=== PATIENT | female | born 1940 | race Caucasian/White ===

== ENCOUNTER → 2018-01-29 09:20 | Outpatient (CLI) | payer OTHER, MEDICARE, SELFPAY ==
--- NOTE | 2018-01-29 10:00 | XR_ITS ---
XR knee RT 2V COMPARISON: Right knee 01/31/2016 HISTORY: Follow-up total knee surgery TECHNIQUE: AP lateral view FINDINGS: The femoral prosthesis is in good alignment and apposition to the tibial plateau prosthesis. The circular wire is seen undersurface of the patella. There is no evidence of loosening, the soft tissues are normal. IMPRESSION: Satisfactory appearance total knee prosthesis
== END ==
PROVIDERS: PCP Internal Medicine Adolescent Medicine; Visit Provider Orthopaedic Surgery
DX: Z96.651 Presence of right artificial knee joint (principal)
CPT/HCPCS: 73560

== ENCOUNTER → 2018-12-01 16:23 | Outpatient (CLI) | payer OTHER, MEDICARE, SELFPAY ==
--- NOTE | 2018-12-01 16:37 | XR_ITS ---
XR knee LT 4V HISTORY: Knee pain, ORDERING PHYSICIAN: Selena Carrillo PATIENT AGE: 78 years COMPARISON: None FINDINGS: Weight bearing views are performed There are mild osteoarthritic changes involving the lateral compartment. There is an calcific density along the central aspect of the lateral compartment and could be due to a loose body. This measures approximately 4 x 1 mm. There is minimal valgus angulation of the tibia. Otherwise negative IMPRESSION: Mild osteoarthritis of left knee
== END ==
PROVIDERS: PCP Internal Medicine Adolescent Medicine; Visit Provider Nurse Practitioner Family
DX: M25.562 Pain in left knee (principal); M25.462 Effusion, left knee
CPT/HCPCS: 73564

== ENCOUNTER → 2018-12-22 07:40 | Outpatient (CLI) | payer OTHER, MEDICARE, SELFPAY ==
--- NOTE | 2018-12-22 07:48 | MR_ITS ---
MR knee LT wo con HISTORY: Left knee pain and burning and swelling ITS.REASON: LEFT ANTERIOR KNEE PAIN ORDERING PHYSICIAN: Selena Carrillo PATIENT AGE: 78 years Comparison: 12/01/2018 TECHNIQUE: Standard multiplanar multiecho sequences are performed without contrast. FINDINGS: The cruciate ligaments appear intact. The collateral ligaments, patellar tendon, quadriceps tendon appears intact. There is a small triangular-shaped defect in the posterior horn of the lateral meniscus laterally. Has the patient had prior meniscal surgery? This millimeters partial volume averaging artifact on the edge of the meniscus. A small horizontal meniscal tear however is not excluded. There is a medium sized knee joint effusion mainly in the suprapatellar region with diffuse edema of the soft tissues of the knee. There is decrease in the joint space laterally with mild lateral extrusion of the lateral meniscus. Decreased T1 and increased T2 signal involves the lateral femoral condyle. This is also noted involving the lateral tibial plateau with mild cortical irregularity of the lateral tibial plateau and a small focal area of decreased T1 signal of the lateral tibial plateau which could be due to a small area of osteochondrosis. Mild osteoarthritic changes are present in the patellofemoral joint. IMPRESSION: 1. Osteoarthritis of the lateral compartment and patellofemoral joint with bone marrow edema of the medial femoral condyle and lateral tibial plateau. There is cortical irregularity of the lateral tibial plateau with a small suspected area of osteochondrosis of the lateral tibial plateau. The bone marrow edema of the lateral femoral condyle may be related to the local inflammation from the osteoarthritic change 2. Small defect in the posterior horn of the lateral meniscus raising the suspicion of prior meniscal surgery versus a small meniscal tear. 3. Knee joint effusion with moderate amount of generalized edema of the soft tissues of the knee
== END ==
PROVIDERS: PCP Internal Medicine Adolescent Medicine; Visit Provider Nurse Practitioner Family
DX: M25.562 Pain in left knee (principal)
CPT/HCPCS: 73721

== ENCOUNTER → 2019-08-01 16:09 | Outpatient (CLI) | payer OTHER, MEDICARE, SELFPAY ==
[2019-08-01 17:47] LABS: D-Dimer 1020 ng/mL (0-400)
== END ==
PROVIDERS: Visit Provider Orthopaedic Surgery
DX: M79.89 Other specified soft tissue disorders (principal)
CPT/HCPCS: 36415; 85378

== ENCOUNTER → 2019-08-02 13:08 | Outpatient (CLI) | payer OTHER, MEDICARE, SELFPAY ==
--- NOTE | 2019-08-02 13:14 | CA_ITS ---
APPROVED REPORT Left Lower Extremity Venous Study for DVT. Air Reduction Equipment Operator: LISA Indications Lower Extremity Pain: Lower Extremity Edema: Bilateral Vein Imaging CFV (L): compressive, spontaneous, phasic, augmentation FEM (L): compressive, spontaneous, phasic, augmentation POP (L): compressive, spontaneous, phasic, augmentation PTV (L): Compressible GSV (L): Compressible Peroneals (L):Compressible GAS (L): Compressible Conclusion Color flow duplex demonstrates no evidence of DVT of the left lower extremity Veins. Color flow duplex demonstrates no evidence of SVT of the Small and Great Saphenous Veins. Electronically signed by : Giorgio Hopper MD 08/04/2019 16:21:36
== END ==
PROVIDERS: PCP Internal Medicine Adolescent Medicine; Visit Provider Internal Medicine Adolescent Medicine
DX: M79.662 Pain in left lower leg (principal)
CPT/HCPCS: 93971

== ENCOUNTER 2019-10-12 15:00 | Outpatient (RCR) | payer OTHER, MEDICARE, SELFPAY ==
--- NOTE | 2019-09-05 15:23 | HMH.PTOPWND ---
Rehab Outpt Wound Evaluation Rehab OP Wound Evaluation Start: 09/05/19 14:55 Freq: Status: Active Protocol: Document 09/05/19 15:17 PHOLANCE (Rec: 09/05/19 15:23 PHORNE [id number]) Electronically Signed By Raji Mendoza, PT 09/05/19 15:17 Subjective/History History History Pt is 78 yowf who presents with c/o left LE edema worse x ~ 3 mos. She has received 2 cortisone injection in the left knee recently due to OA, but they have had little to no effect. She reports on pain with walking and none at rest. She had US performed which ruled out DVT of the letf LE. She has PMH of HTN, R TKA, R CAROLANN. Subjective Subjective 0/10 corey dayanna rest, 4/10 at worst (usually with walking). Lymphedema Eval Classification of Lymphedema Secondary Lymphedema Yes Stemmer's sign Stemmer's Sign no Stage of Lymphedema Lymphedema stages Stage II (Pitting edema, increased fibrosis w/ decreased pitting) Skin Changes Dry Skin Yes Redness Yes Discoloration of Skin Yes Pain Scale Pain Scale (0-10) 4 Affected Extremities Areas Affected by Lymphedema/Edema Right Lower Extremity,Left Lower Extremity Manual Lymphatic Drainage Treatment Area MLD Treatment Area Right Lower Extremity,Left Lower Extremity Wound Problems/Impairments Impairments Problems/Impairmments Palpation Tenderness,Impaired Gait Pattern,Impaired Walking, Impaired Recreational Activities,Increased Edema, Lymphedema Present,Subjective C/O Pain,Impaired Self Care/ Self Management Prognosis Rehab Potential Good Clinical Impression Consistent with Diagnosis Yes Short Term Goals Number of Weeks 4 Decreased Palpation Tenderness Yes: to min Decrease Edema Yes Decrease Subjective C/O Pain Yes: 2/10 Patient to Understand Lymphedema Yes Treatment and Exercises Decrease Girth Measurments by (cm) Yes: by 5 cm Dressing Room Attendant Goals Number of Weeks 8 Decreased Palpation Tenderness Yes: to none Increase Ability to Walk Yes Decrease Edema Yes Decre
== END 2019-10-12 15:05 | disposition home or self-care (01) ==
LOC: PT 15:00
PROVIDERS: PCP Internal Medicine Adolescent Medicine; Visit Provider Orthopaedic Surgery
DX: I89.0 Lymphedema, not elsewhere classified (principal); R22.42 Localized swelling, mass and lump, left lower limb
CPT/HCPCS: 97140; 97162; 97760

== ENCOUNTER → 2020-01-30 16:18 | Outpatient (CLI) | payer OTHER, MEDICARE, SELFPAY ==
--- NOTE | 2020-01-30 16:27 | XR_ITS ---
PROCEDURE: XR KNEE LT 4V CLINICAL INDICATION: knee pain Left knee pain COMPARISON: [id number] KNEE-3 VIEWS-RT from 01/09/2016 [id number] KNEE-LIMITED 2 VIEWS-RT from 01/31/2016 KNEELMRT XR knee RT 2V from 01/29/2018 [id number] XR knee LT 4V from 12/01/2018 FINDINGS: Moderate osteoarthritic changes are present involving the lateral compartment. There is valgus angulation of the tibia with osteophyte formation noted along the lateral aspect of the proximal tibia. Mild osteoarthritic changes are present at the patellofemoral joint IMPRESSION: Moderate osteoarthritic changes which have progressed since the previous exam with genu valgum Dictated by: Giorgio Hopper MD 01/30/2020 18:00 Electronically signed by Giorgio Hopper MD in [place] 01/30/2020 18:00
== END ==
PROVIDERS: PCP Internal Medicine Adolescent Medicine; Visit Provider Orthopaedic Surgery
DX: M17.12 Unilateral primary osteoarthritis, left knee (principal)
CPT/HCPCS: 73564

== ENCOUNTER → 2020-03-20 14:10 | Outpatient (CLI) | payer OTHER, MEDICARE, SELFPAY ==
--- NOTE | 2020-03-20 | US_ITS ---
APPROVED REPORT Exam Type: Ankle to Brachial Index Psychic Reader: RT Ismael(R) Indications Non-healing Ulcer: Patient states she has been going to the wound care and lymphedema clinic for a non healing ulcer on the left lower extremity. It has been there for 3 months. Risk Factors Hypertension Pressures/Indices Right Indices Left Indices Brachial 163.00 mmHg Brachial 166.00 mmHg Low Thigh 184.00 mmHg 1.11 Low Thigh 203.00 mmHg 1.22 Calf 190.00 mmHg 1.14 Calf 199.00 mmHg 1.20 Ankle(PT) 201.00 mmHg 1.21 Ankle(PT) 198.00 mmHg 1.19 Ankle(DP) 182.00 mmHg 1.10 Ankle(DP) 190.00 mmHg 1.14 Digit 114.00 mmHg 0.69 Digit 143.00 mmHg 0.86 Findings RT LEI=1.21 LT LEI=1.2 RT TBI=0.7 LT TBI=0.9 Normal waveforms Normal pulses Conclusion Normal appearing resting noninvasive lower extremity arterial study. Electronically signed by : Giorgio Hopper MD 03/20/2020 17:54:28
== END ==
PROVIDERS: PCP Internal Medicine Adolescent Medicine; Visit Provider Orthopaedic Surgery
DX: I89.0 Lymphedema, not elsewhere classified (principal); I73.9 Peripheral vascular disease, unspecified
CPT/HCPCS: 93923

== ENCOUNTER → 2020-03-26 14:38 | Outpatient (CLI) | payer OTHER, MEDICARE, SELFPAY ==
[2020-03-26 14:54] LABS: Basophils % 0.7 % (0.1-2.0); Eosinophils # 0.2 K/mm3 (0.0-0.4); Eosinophils % 2.8 % (0.1-12.0); Hematocrit 35.3 % (37.0-47.0); Hemoglobin 11.1 g/dL (12.2-16.2); Lymphocytes # 0.8 K/mm3 (0.7-4.5); Lymphocytes % 15.7 % (10-50); Mean Corpuscular HGB Conc 31.5 g/dL (31.8-35.4); Mean Corpuscular Hemoglobin 29.8 pg (27.0-31.2); Mean Corpuscular Volume 94.7 fl (81-99); Mean Platelet Volume 8.5 fl (7.4-10.4); Monocytes # 0.3 K/mm3 (0.1-1.0); Neutrophils # 4.1 K/mm3 (1.8-7.8); Neutrophils % 75.7 % (37.0-80.0); Platelet Count 255 K/mm3 (142-424); Red Blood Count 3.73 M/mm3 (4.20-5.40); Red Cell Distribution Width 12.9 % (11.5-17.5); White Blood Count 5.4 K/mm3 (4.8-10.8)
[2020-03-26 15:19] LABS: Erythrocyte Sedimentation Rate 60 mm/hr (0-30)
[2020-03-26 16:13] LABS: Chloride 104 mmol/L (98-107); Potassium 5.1 mmoL/L (3.5-5.1); Sodium 137 mmol/L (136-145)
[2020-03-26 16:16] LABS: Alanine Aminotransferase 9 U/L (12-78); Albumin Level 4.5 g/dl (3.5-5.0); Albumin/Globulin Ratio 1.5 (1.1-1.8); Alkaline Phosphatase 76 U/L (38-126); Anion Gap 14.1 mEq/L (5-15); Aspartate Amino Transferase 20 U/L (14-36); Bilirubin,Total 0.6 mg/dl (0.2-1.3); Blood Urea Nitrogen 48 mg/dl (7-17); Calcium 9.9 mg/dl (8.4-10.2); Carbon Dioxide 24 mmol/L (22.0-30.0); Estimated Glomerular Filt Rate 43 ml/min (>60); GFR (African American) 52 ML/MIN (>60); Glucose 99 mg/dl (74-100); Total Protein,Serum 7.5 g/dl (6.3-8.2)
[2020-03-26 16:22] LABS: C-Reactive Protein 6.7 mg/L (0-4)
== END ==
PROVIDERS: Visit Provider Orthopaedic Surgery
DX: B99.9 Unspecified infectious disease (principal)
CPT/HCPCS: 36415; 80053; 85025; 85651; 86140

== ENCOUNTER → 2020-03-29 11:06 | Outpatient (CLI) | payer OTHER, MEDICARE, SELFPAY ==
--- NOTE | 2020-03-29 11:07 | MR_ITS ---
PROCEDURE: MR LOWER LEG LT WO CON CLINICAL INDICATION: R/O infection Open wound medially above the ankle with pain COMPARISON: No exams were available for comparison TECHNIQUE: Routine multiplanar multi echo sequences are performed without gadolinium enhancement. FINDINGS: There is mild bone marrow edema of the proximal tibia at both the medial and lateral malleolar region and there is also some bone marrow edema of the distal femur laterally. There is a small knee joint effusion. There is extensive soft tissue edema along the medial aspect of the leg cyst 6 involving the medial head of the gastrocnemius muscle 6 6 6 and plantaris muscle proximally with involvement of the flexor digitorum and soleus distally. No abscess or abnormal bone marrow signal intensity is evident distally with no convincing evidence of osteomyelitis. There is extensive subcutaneous edema at the level of the ankle joint and hindfoot medially. There is also edema with a small amount fluid in the soft tissues of the posterior distal tibial region. IMPRESSION: 1. Diffuse subcutaneous edema of the medial aspect of the calf most prominent at the ankle area suggesting cellulitis. No definite abscess or osteomyelitis 2. There is some bone marrow edema at the knee involving the distal femur proximal tibia with an associated knee joint effusion. Etiology of this edema is undetermined Dictated by: Giorgio Hopper MD 03/31/2020 12:53 Electronically signed by Giorgio Hopper MD in [place] 03/31/2020 12:53
== END ==
PROVIDERS: PCP Internal Medicine Adolescent Medicine; Visit Provider Orthopaedic Surgery
DX: M79.89 Other specified soft tissue disorders (principal)
CPT/HCPCS: 73718

== ENCOUNTER → 2020-04-26 17:03 | Outpatient (CLI) | payer OTHER, MEDICARE, SELFPAY | PROVIDERS: Visit Provider Orthopaedic Surgery | DX: L97.321 Non-pressure chronic ulcer of left ankle limited to breakdown of skin (principal) | CPT/HCPCS: 87070; 87077; 87186; 87205 ==

== ENCOUNTER 2020-06-27 16:00 | Outpatient (RCR) | payer MEDICARE, OTHER, SELFPAY ==
--- NOTE | 2020-02-03 09:16 | HMH.PTOPWND ---
Rehab Outpt Wound Evaluation Rehab OP Wound Evaluation Start: 02/03/20 08:38 Freq: Status: Active Protocol: Document 02/03/20 08:55 REJI (Rec: 02/03/20 09:15 PHORSASHA [id number]) Electronically Signed By Raji Mendoza, PT 02/03/20 08:55 Subjective/History History History Pt is 79 yowf who presents with c/o B LE edema, L significantly greater than R, worse x ~1-2 mos. She reports she has had edema for several years overall. She also reports she has a new wound on her anterior medial left ankle that resulted from some poor fitting shoes after her edema increased. She has moderate tenderness to palpation in the L gaitor area . She has PMH of HTN, GERD, R CAROLANN, R TKA, L knee OA. Subjective Subjective Currently no c/o pain, at worst 5/10 in L lower leg. Lymphedema Eval Classification of Lymphedema Secondary Lymphedema Yes: CVI and OA Stemmer's sign Stemmer's Sign no Stage of Lymphedema Lymphedema stages Stage I (Pitting edema, reduces w/ elevation, no fibrosis) Skin Changes Dry Skin Yes Taut, Shiny Skin Yes Redness Yes Wounds Yes Other Changes Yes Pain Scale Pain Scale (0-10) 5 Affected Extremities Areas Affected by Lymphedema/Edema Right Lower Extremity,Left Lower Extremity Manual Lymphatic Drainage Treatment Area MLD Treatment Area Right Lower Extremity,Left Lower Extremity Wound Problems/Impairments Impairments Problems/Impairmments Palpation Tenderness,Impaired Gait Pattern,Impaired Walking, Impaired Recreational Activities,Impaired Work Activities,Lymphedema Present, Wound Care Needs,Subjective C/ O Pain,Impaired Self Care/Self Management Prognosis Rehab Potential Good Clinical Impression Consistent with Diagnosis Yes Short Term Goals Number of Weeks 4 Decreased Palpation Tenderness Yes: to min Decrease Subjective C/O Pain Yes: 3/10 Patient to Understand Lymphedema Yes
--- NOTE | 2020-03-26 15:05 | HMH.RHREAS ---
Rehab Reassessment Rehab OP Re-assessment Start: 02/24/20 15:23 Freq: Status: Active Protocol: Document 03/26/20 15:02 REJI (Rec: 03/26/20 15:04 REJI [id number]) Electronically Signed By Raji Mendoza, PT 03/26/20 15:02 Rehab Re-assessment Subjective Subjective Pt reports increased burning pain in the periwound area after debridement. Objective Objective Notes L hammond wound: L= 1.7 cm, W= 1. 4 cm. Dry, yellow wound base. Assessment Progress Assessment Progressing as Expected Assessment Notes Pt with much less edema noted in left LE, but L medial hammond wound remains very slow to heal. Patient goals met ST,2,3,4 Goals Not Met LT,2,3,4,5,6,7 Revised Goals none Plan Plan Continue per initial POC. Frequency of Therapy 2 x/wk Duration of therapy 8 wks Time and Billing Re-Eval Time 15 Re-Eval Billing Units 1 PHYSICIAN CERTIFICATION: I certify the specified therapy services for Susna Dudley are required, authorized, and reviewed every 30 days.
--- NOTE | 2020-05-10 14:08 | HMH.RHREAS ---
Rehab Reassessment Rehab OP Re-assessment Start: 02/24/20 15:23 Freq: Status: Active Protocol: Document 05/10/20 14:06 REJI (Rec: 05/10/20 14:08 REJI [id number]) Electronically Signed By Raji Mendoza, PT 05/10/20 14:06 Rehab Re-assessment Subjective Subjective Pt with less pain in periwound area now. Objective Objective Notes L LE wound with decreased drainage now. Edema appears less fibrotic with decreased pitting. Assessment Progress Assessment Progressing as Expected Assessment Notes Pt wound healing better now that she is on oral abx. Less pain and improved edema. Patient goals met ST,2,3,4 Goals Not Met LT,2,3,4,5,6,7 Revised Goals none Plan Plan Continue per initial POC. Frequency of Therapy 2 x/wk Duration of therapy 8 wks Time and Billing Re-Eval Time 15 Re-Eval Billing Units 1 PHYSICIAN CERTIFICATION: I certify the specified therapy services for Susan Dudley are required, authorized, and reviewed every 30 days.
--- NOTE | 2020-06-13 16:13 | HMH.RHREAS ---
Rehab Reassessment Rehab OP Re-assessment Start: 02/24/20 15:23 Freq: Status: Active Protocol: Document 06/13/20 16:09 REJI (Rec: 06/13/20 16:12 REJI [id number]) Electronically Signed By Raji Mendoza, PT 06/13/20 16:09 Rehab Re-assessment Subjective Subjective Pt reports much less pain and she feels better overall. Objective Objective Notes L medial ankle wound: L= 0.9 cm, W= 1.0 cm. Assessment Progress Assessment Progressing as Expected Assessment Notes Healthy granulation tissue noted at wound base. Patient goals met ST,2,3,4 Goals Not Met LT,2,3,4,5,6,7 Revised Goals none Plan Plan Continue per initial POC. Frequency of Therapy 2 x/wk Duration of therapy 8 wks Time and Billing Re-Eval Time 15 Re-Eval Billing Units 1 PHYSICIAN CERTIFICATION: I certify the specified therapy services for Susan Dudley are required, authorized, and reviewed every 30 days.
== END 2020-06-27 16:57 | disposition home or self-care (01) ==
LOC: PT 16:00
PROVIDERS: PCP Internal Medicine Adolescent Medicine; Visit Provider Orthopaedic Surgery
DX: M79.605 Pain in left leg; M79.89 Other specified soft tissue disorders
CPT/HCPCS: 97140; 97162; 97164; 97597

== ENCOUNTER → 2020-10-08 15:08 | Outpatient (CLI) | payer MEDICARE, OTHER, SELFPAY ==
--- NOTE | 2020-10-08 15:13 | XR_ITS ---
PROCEDURE: XR KNEE LT 4V CLINICAL INDICATION: LT TKA pre-op Pain, templating COMPARISON: CR [id number] KNEE-LIMITED 2 VIEWS-RT from 01/31/2016 CR KNEELMRT XR knee RT 2V from 01/29/2018 CR [id number] XR knee LT 4V from 12/01/2018 CR XR KNEE LT 4V from 01/30/2020 FINDINGS: There is valgus angulation of the knee with loss of the joint space at the lateral compartment with osteoarthritis at the lateral compartment. Mild osteoarthritic changes are present at the patellofemoral joint. Marker is placed for templating IMPRESSION: Osteoarthritis with genu valgum Dictated by: Giorgio Hopper MD 10/08/2020 16:01 Giorgio Hopper MD in [place] 10/08/2020 16:01
[2020-10-08 16:17] LABS: MANUAL DIFFERENTIAL MANUAL DIFFERENTIAL (MANUAL DIFF)
[2020-10-08 16:51] LABS: Microscopic, Urine URINE MICROSCOPIC (MICROSCOPIC)
[2020-10-08 17:07] LABS: Appearance,Urine CLEAR (Clear); Bilirubin,Urine Negative (Negative); Blood, Urine Negative (Negative); Color,Urine YELLOW (Yellow); Glucose,Urine (UA) Negative (Negative); Ketones,Urine Negative (Negative); Leukocyte Esterase,Urine Negative (Negative); Nitrate,Urine Negative (Negative); Protein,Urine Negative (Negative); Urobilinogen,Urine 0.2 EU/dl (0.2)
[2020-10-08 17:17] LABS: Basophils % 0.6 % (0.1-2.0); Eosinophils # 0.2 K/mm3 (0.0-0.4); Eosinophils % 2.4 % (0.1-12.0); Hematocrit 43.1 % (37.0-47.0); Lymphocytes # 1.1 K/mm3 (0.7-4.5); Lymphocytes % 16.3 % (10-50); Mean Corpuscular HGB Conc 32.6 g/dL (31.8-35.4); Mean Corpuscular Hemoglobin 31.1 pg (27.0-31.2); Mean Corpuscular Volume 95.5 fl (81-99); Mean Platelet Volume 8.3 fl (7.4-10.4); Monocytes # 0.4 K/mm3 (0.1-1.0); Monocytes % 5.8 % (1.7-9.3); Neutrophils # 4.9 K/mm3 (1.8-7.8); Neutrophils % 74.9 % (37.0-80.0); Platelet Count 180 K/mm3 (142-424); Red Blood Count 4.52 M/mm3 (4.20-5.40); Red Cell Distribution Width 13.4 % (11.5-17.5); White Blood Count 6.5 K/mm3 (4.8-10.8)
[2020-10-08 17:26] LABS: Bacteria,Urine 4+ /lpf
[2020-10-08 17:42] LABS: Eosinophils % 3 % (0-3); Lymphocytes % 8 % (10-50); Monocytes % 1 % (2-9); Neutrophils % 86 % (42-76); Platelet Estimate Normal; RBC Morphology Normal; Rouleaux 1+; Total Cells Counted 100
[2020-10-08 17:55] LABS: Activated Partial Thrombo Time 24.8 seconds (23.6-34.0); INR 1.03 (0.9-1.1); Prothrombin Time 11.4 seconds (9.4-11.8)
[2020-10-08 20:30] LABS: Alanine Aminotransferase 10 U/L (12-78); Albumin Level 4.4 g/dl (3.5-5.0); Albumin/Globulin Ratio 1.5 (1.1-1.8); Alkaline Phosphatase 119 U/L (38-126); Anion Gap 11.9 mEq/L (5-15); Aspartate Amino Transferase 22 U/L (14-36); Bilirubin,Total 0.7 mg/dl (0.2-1.3); Blood Urea Nitrogen 24 mg/dl (7-17); Calcium 9.8 mg/dl (8.4-10.2); Carbon Dioxide 28 mmol/L (22.0-30.0); Chloride 104 mmol/L (98-107); Estimated Glomerular Filt Rate 53 ml/min (>60); GFR (African American) 64 ML/MIN (>60); Glucose 98 mg/dl (74-100); Potassium 4.9 mmoL/L (3.5-5.1); Sodium 139 mmol/L (136-145); Total Protein,Serum 7.4 g/dl (6.3-8.2)
== END ==
PROVIDERS: PCP Internal Medicine Adolescent Medicine; Visit Provider Orthopaedic Surgery
DX: Z01.818 Encounter for other preprocedural examination; M17.12 Unilateral primary osteoarthritis, left knee; Z51.81 Encounter for therapeutic drug level monitoring; R82.90 Unspecified abnormal findings in urine
CPT/HCPCS: 36415; 73564; 80053; 81001; 85007; 85014; 85018; 85048; 85049; 85610; 85730; 86850; 87081; 87086; 87088; 87186

== ENCOUNTER → 2020-10-15 15:09 | Outpatient (CLI) | payer MEDICARE, OTHER, SELFPAY ==
[2020-10-15 17:38] LABS: Coronavirus 19 IgG Antibody Negative (Negative); Coronavirus 19 IgM Antibody Negative (Negative)
== END ==
PROVIDERS: Visit Provider Orthopaedic Surgery
DX: Z01.818 Encounter for other preprocedural examination; M17.12 Unilateral primary osteoarthritis, left knee
CPT/HCPCS: 36415; 86328; 86850

== ENCOUNTER 2020-10-16 07:18 | Observation (INO) | payer MEDICARE, OTHER, SELFPAY ==
[2020-10-16] VITALS (33 sets, daily range): BP systolic 108–196; BP diastolic 40–93; PULSE 67–109; RESP 12–20; TEMP 36.4–43; O2SAT 94–100; BMI 20.3
--- NOTE | 2020-10-16 08:36 | P.PN_ITS ---
[facility] Anesthesia Checklist - Patient Identification Patient Identification: Arm Band, Verbal (Name & ) - Structural Data Admitted From: Home Planned Operative Procedure/s: left tka Consent for Planned Operative Procedure(s) Verified: Yes Verified Documents: History and Physical - NPO Status Verified Time NPO: 00:00 - Chart Verification Results Verified: CBC, BMP - Additional verifications Patient : No Anesthesia Reactions: No Hx Blood Transfusions: Yes Blood Transfusion Reaction: No Cephalosporin Allergy: No Previous Colonoscopy: No - Cardiovascular Assessment Heart Sounds: S1 & S2 Pulse Strength: Baseline Pulse Rhythm: Regular Peripheral Edema: No - Airway Assessment C-Spine Mobility Assessed: Yes TMJ Mobility Assessed: Yes Dentition: Good Dentition - Neurological Assessment Level of Consciousness: Awake, Alert, Appropriate Hx Seizures: No Numbness or tingling in extremities: No - Anesthesia Plan Anesthesia Risk discussed: Yes Anesthesia Plan: Verified ASA Class: II Anesthesia Type: General [facility] History I have reviewed the patient's past medical history: Yes Medical History: Reports:: Gastroesophageal Reflux Disease(GERD), Hypertension, Ulcer Denies:: Cancer, Diabetes Mellitus Type 1, Diabetes Mellitus Type 2, Internal Pacemaker, Lung Disease, MRSA, Seizures *Have you ever received a pneumonia vaccine?: No *Have you received a flu vaccine this season?: No Other Medical History: Reports: Anemia, Arthritis. Denies: Blood Transfusion Reaction Anesthesia experience/problems:: none Laterality Cases: Right: Arthroscopy Knee, Total Hip Replacement Other Surgeries: Yes: Colostomy, EGD, Other. No: Pacemaker - *Social History Last grade of school completed: High school graduate Smoking Status: Never smoker Alcohol Intake: never Substance Use Type: other *Occupational Status:: retired Housing: house Household Members: family *Travel in the last 8 weeks: None Family Hx:: Cancer
[2020-10-16 12:13] LABS: Microscopic,Cath URINE MICROSCOPIC (MICROSCOPIC)
[2020-10-16 12:17] LABS: Appearance,Urine/Cath CLEAR (Clear); Bilirubin,Cath Negative (Negative); Blood, Urine/Cath TRACE-L (Negative); Color,Urine/Cath YELLOW (Yellow); Glucose,Urine/Cath (UA) Negative (Negative); Ketones,Urine/Cath Negative (Negative); Leukocyte Esterase,Cath TRACE (Negative); Nitrate,Cath POSITIVE (Negative); Protein,Urine/Cath Negative (Negative); Urobilinogen,Cath 0.2 EU/dl (0.2)
--- NOTE | 2020-10-16 13:32 | HMH.ANESI ---
[facility] Anesthesia Record Part I Intake, IV Amount: 1,000 Estimated blood loss (mL): 50 Urine output (mL): 200 Blood Products used (#): none Blood Pressure: 147/74 SaO2: 95 Pulse Rate: 108 Respiratory Rate: 20 Temperature: 98.7 F Patient is:: Drowsy, Stable Stable to PACU at:: 13:28
--- NOTE | 2020-10-16 13:34 | XR_ITS ---
PROCEDURE: XR KNEE LT 2V CLINICAL INDICATION: s/p L TKA Follow-up knee replacement COMPARISON: CR KNEELMRT XR knee RT 2V from 01/29/2018 CR [id number] XR knee LT 4V from 12/01/2018 CR XR KNEE LT 4V from 01/30/2020 CR XR KNEE LT 4V from 10/08/2020 FINDINGS: Status post total knee replacement with good alignment and no evidence of orthopedic complication. Postsurgical gas and drain noted. IMPRESSION: Good alignment status post total knee replacement Dictated by: Giorgio Hopper MD 10/16/2020 15:06 Giorgio Hopper MD in [place] 10/16/2020 15:06
--- NOTE | 2020-10-16 13:43 | HMH.ORTHHP ---
*Admission Date: 10/16/20 *Reason for consult:: L knee DJD s/p TKA *History of present illness: 80yo F with L knee DJD that has failed conservative therapy. I have been following her as an outpatient for nearly 2 years, and the pain in the knee has progressively worsened despite 3 intra-articular corticosteroid injections and 1 synvisc injection from me. She is unable to take NSAIDs due to h/o NSAID-induced gastric ulcer. She has tried bracing and activity modification, in addition to oral analgesics but the pain has progressed to the point it is inhibiting her ability to perform ADLs and is adversely affecting her quality of life. In addition to this her valgus deformity has progressively worsened over the past year. No injuries reported. Surgery was planned for earlier in the year but delayed due to the presence of LLE edema and a non-healing ulcer over the medial L ankle. This healed after treatment at the wound care clinic at . Pre-operatively she was negative for covid-19 antibodies and her labs were within normal limits. However, she did have a UTI (E. Coli); her PCP called in macrobid; the patient isn't sure if she took it. PMH = HTN, GERD, gastric ulcer PSH = R TKA 2015; B/L CAROLANN Allg = statins, NSAIDs Meds = carvedilol, vitamin D3, furosemide, norco 7.5, metaxolone SocHx = no alcohol, drug or tobacco use [facility] History I have reviewed the patient's past medical history: Yes Medical History: Reports:: Gastroesophageal Reflux Disease(GERD), Hypertension, Ulcer Denies:: Cancer, Diabetes Mellitus Type 1, Diabetes Mellitus Type 2, Internal Pacemaker, Lung Disease, MRSA, Seizures *Have you ever received a pneumonia vaccine?: No *Have you received a flu vaccine this season?: No Other Medical History: Reports: Anemia, Arthritis. Denies: Blood Transfusion Reaction Anesthesia experience/problems:: none Laterality Cases: Right: Arthroscopy Knee, Total Hip Replacement Other Surgeries: Yes: Colostomy, EGD, Other. No: Pacemaker - *Social History Last grade of school completed: High school graduate Smoking Status: Never smoker Alcohol Intake: never Substance Use Type: other *Occupational Status:: retired Housing: house Household Members: family *Travel in the last 8 weeks: None Family Hx:: Cancer Review of Systems - Review of Systems Review of systems:: pertinent systems reviewed and negative unless documented below Meds Home Medications Medication Instructions Recorded Confirmed Type cholecalciferol (vitamin D3) 75 1,000 unit PO ONCE tab 01/29/18 09/13/20 History mcg (3,000 unit) tablet carvedilol 6.25 mg tablet 6.25 mg PO BID 03/26/20 09/13/20 History hydrocodone 7.5 mg-acetaminophen 1 tab PO TID PRN 10/08/20 10/08/20 History 325 mg tablet Allergies Allergy/AdvReac Type Severity Reaction Status Date / Time Ecnuelz-Fro-Avq Reductase Allergy Severe S-SWELLS-OR Verified 10/08/20 14:20 Inhibitor AL/THROAT NSAIDS (Non-Steroidal Allergy Unknown ULCERS Verified 10/08/20 14:20 Anti-Inflamma Exam Vital signs and Labs for Last 24 Hours: Temp Pulse Resp BP Pulse Ox 98.7 F 108 H 20 147/74 H 100 10/16/20 13:42 10/16/20 13:42 10/16/20 13:42 10/16/20 13:42 10/16/20 08:00 Laboratory Results - last 24 hr 10/16/20 09:31: Urine Color Yellow, Urine Appearance Clear, Urine pH 6.0, Ur Specific Finley 1.020, Urine Protein Negative, Urine Glucose (UA) Negative, Urine Ketones Negative, Urine Blood Trace-l, Urine Nitrate Positive, Urine Bilirubin Negative, Urine Urobilinogen 0.2, Ur Leukocyte Esterase Trace, Urine RBC 3-5, Urine WBC 3-5, Ur Squamous Epith Cells 3-5 I & O for Last 24 hours: Intake & Output 10/14/20 10/15/20 10/16/20 10/17/20 11:59 11:59 11:59 11:59 Intake Total 1000 / 1000 Balance 1000 / 1000 Weight 115 lb - Constitutional no acute distress - *Routine HEENT Exam Head: Present: normocephalic Eye: Present: EOMI ENT: Present: mucous membranes moist - *Routine
--- NOTE | 2020-10-16 14:20 | HMH.OPNOTE ---
Date of procedure: 10/16/20 Pre-op Diagnosis:: L knee degenerative joint disease; valgus deformity Post-op Diagnosis:: L knee degenerative joint disease; valgus deformity Procedure performed:: L total knee arthroplasty (TKA) Surgeon:: Marielle Mckeon MD Clinical Fellow(s):: JOSSE Jiménez POLICY ANALYST:: Hayder Ma Anesthesia: GETA, regional Estimated blood loss (mL): 100 Clinical Note:: 80yo F with L knee DJD that has failed conservative therapy. I have been following her as an outpatient for nearly 2 years, and the pain in the knee has progressively worsened despite 3 intra-articular corticosteroid injections and 1 synvisc injection from [place]. She is unable to take NSAIDs due to h/o NSAID-induced gastric ulcer. She has tried bracing and activity modification, in addition to oral analgesics but the pain has progressed to the point it is inhibiting her ability to perform ADLs and is adversely affecting her quality of life. In addition to this her valgus deformity has progressively worsened over the past year. No injuries reported. Surgery was planned for earlier in the year but delayed due to the presence of LLE edema and a non-healing ulcer over the medial L ankle. This healed after treatment at the wound care clinic at . Pre-operatively she was negative for covid-19 antibodies and her labs were within normal limits. However, she did have a UTI (E. Coli); her PCP called in macrobid; the patient isn't sure if she took it. I?ve discussed surgical options with the patient and have recommended total knee arthroplasty. We discussed at length the surgical technique and expected perioperative course, including length of hospitalization, need for postoperative physical therapy, use of anticoagulants, expected level of pain, and total length of recovery. I also explained the potential risks of surgery, including bleeding, infection, fracture, wound healing complications, need for revision surgery, continued pain post-operatively, DVT/PE, and risks of both general and regional anesthesia, including nerve damage, heart attack, stroke and even . I also discussed her unique risks of peroneal nerve palsy after correction of a valgus deformity, with potential foot drop. The patient vocalized understanding of these risks and has agreed to proceed with surgery; informed consent was obtained. She was cleared for surgery by her primary care provider. Operative findings:: IMPLANTS: vendor: [employer] femur: 5 L journey II BCS tibia: 3 L legion revision baseplate w/JII lock detail, [id number] PF stem patella: 32x9mm polyethylene: 15mm L BCS poly for JII, constrained cement: palacos (with gentamicin) Operative note:: The patient was identified in pre-operative holding and the L leg signed by myself with marking pen. Consent was verified with the patient and all questions were answered. Pre-operative labs were confirmed to be within acceptable limits. MRSA nasal swab was negative. She was then seen by anesthesia and the decision was made to perform general anesthesia with an adductor canal block in PACU if needed. The patient was then taken to the OR and placed supine on the operative table. 1g cefazolin was infused intravenously and general anesthesia induced. Once the patient was asleep, a nonsterile tourniquet was placed on the upper L thigh. The L leg was then prepped and draped in the usual sterile fashion for total knee arthroplasty. Timeout was performed, identifying the correct patient, correct procedure, and correct site. The procedure was begun by performing an exam under anesthesia. ROM of the L knee was 0-120 degrees without a flexion contracture. The patient had a significant clinical valgus deformity, which did open up medially quite a bit but did not feel grossly unstable. The valgus was measured around 31 degrees on standing pre-op short leg films. Next the L leg was exsanguinated with an Esmarch and the tourniquet inflated to 250 mmHg. A longitudinal inci
--- NOTE | 2020-10-16 14:33 | SUR.PHASEI ---
Much of the time the patient spent in PACU was devoted to getting the wound vac to seal correctly without a leak. The Whit Alvarado worked diligently to first find the leak she could detect using a stethoscope and then to repair the leak. The patient received a block to the left leg in PACU at 1424 by Kahlil Ma CRNA, using 15-20ml pain med with an ultrasound. The patient tolerated the block well.
--- NOTE | 2020-10-16 14:56 | SW/DCPLANNER ---
RECEIVED REFERRAL FOR DISCHARGE PLANNING FOR THIS PATIENT: MS MCDERMOTT WAS ADMITTED FOR A TOTAL LEFT KNEE R/T DJD... MS MCDERMOTT RESIDES AT HOME WITH HER 2 DAUGHTERS AND THE PLAN IS FOR HER TO STAY TONIGHT, HAVE A PT EVAL IN THE AM AND DEPENDING ON WHAT THERAPY SAYS MAY DISCHARGE TO HOME WITH HOME HEALTH AND THE HELP FROM HER DAUGHTERS... WEIGHT BEARING IS UNDECIDED AT THIS TIME... SPOKE WITH DAUGHTER AND SHE IS IN AGREEMENT OF THE PLAN...
--- NOTE | 2020-10-16 17:06 | HMH.ACPN2 ---
Internal Medicine - PN: Subj *Date: 10/16/20 *Time: 21:03 Interval history: Ms. Dudley is an 80-year-old female admitted for orthopedics for total knee replacement. Our service was consulted by Dr. Mckeon for medical management of her chronic conditions. History of presentation as follows Per orthopedic note and review with patient: 80yo F with L knee DJD that has failed conservative therapy. Extensive follow-up and treatment with injections, oral agents, and conservative management. Decision made to pursue knee replacement due to persistent pain and deformity. Surgery performed this afternoon without incident. Patient tolerated procedure well, received nerve block after procedure. PMH = HTN, GERD, gastric ulcer PSH = R TKA 2015; B/L CAROLANN Allg = statins, NSAIDs Meds = carvedilol, vitamin D3, furosemide, norco 7.5, metaxolone SocHx = no alcohol, drug or tobacco use On interview, patient states she is feeling pretty good. Denies significant pain in her leg. Has postsurgical wrap and ice bath in place. Currently eating dinner without any nausea or upset stomach. Denies shortness of breath or chest pain. Alert and oriented on interview. Daughter at bedside with her. Of note, has positive UA concerning for UTI, but denies significant symptoms at this time. Blood pressure improved on interview, 140s over 70s. Stable on room air. Exam Vital signs and Labs for Last 24 Hours: Temp Pulse Resp BP Pulse Ox 97.9 F 86 13 129/68 95 10/16/20 15:20 10/16/20 15:20 10/16/20 15:20 10/16/20 15:20 10/16/20 15:20 Laboratory Results - last 24 hr 10/16/20 09:31: Urine Color Yellow, Urine Appearance Clear, Urine pH 6.0, Ur Specific [place] 1.020, Urine Protein Negative, Urine Glucose (UA) Negative, Urine Ketones Negative, Urine Blood Trace-l, Urine Nitrate Positive, Urine Bilirubin Negative, Urine Urobilinogen 0.2, Ur Leukocyte Esterase Trace, Urine RBC 3-5, Urine WBC 3-5, Ur Squamous Epith Cells 3-5 I & O for Last 24 hours: Intake & Output 10/13/20 10/14/20 10/15/20 10/16/20 23:59 23:59 23:59 23:59 Intake Total 1000 / 1000 Output Total 300 / 300 Balance 700 / 700 Weight 52.163 kg - Constitutional no acute distress - *Routine HEENT Exam Head: Present: normocephalic Eye: Present: EOMI, PERRL ENT: Present: mucous membranes moist - *Routine Neck Exam Present: supple. Absent: lymphadenopathy - *Routine Respiratory Exam Present: CTA bilaterally - *Routine Cardiovascular Exam Present: RRR - *Routine Abdominal Exam Present: soft, normoactive bowel sounds. Absent: tenderness - *Routine Extremities Exam Absent: cyanosis, clubbing Comments: Left leg in Ian bandage from heel to thigh. Defer to orthopedics exam per their note - *Routine Skin Exam Present: warm. Absent: rash - *Routine Neurological Exam Present: alert, oriented X3 Neurovascularly intact in left foot distal to surgical site. Able to wiggle toes, sensation intact Assessment and Plan (1) Degenerative arthritis of left knee Status: Acute Category: Medical Code(s): M17.12 - Unilateral primary osteoarthritis, left knee (2) HTN (hypertension) Status: Acute Category: Medical Code(s): I10 - Essential (primary) hypertension (3) GERD (gastroesophageal reflux disease) Status: Acute Category: Medical Code(s): K21.9 - Gastro-esophageal reflux disease without esophagitis (4) UTI (urinary tract infection) Status: Acute Category: Medical Code(s): N39.0 - Urinary tract infection, site not specified (5) Acute pain Status: Acute Category: Medical Code(s): R52 - Pain, unspecified Secondary to surgery. On appropriate opiate regimen. Will monitor for constipation. Bowel regimen initiated. - Assessment and plan all Dx Assessment and Plan for all problems:: 80-year-old female with history of hypertension, degenerative joint disease of left knee, status post surgical knee replacement.
--- NOTE | 2020-10-16 19:17 | P.PN_ITS ---
[facility] Anesthesia Record Part II Discharge Time: 15:25 Destination: Medical Surgical Department PACU nurse assessment reviewed?: Yes Patient Condition:: Good Anesthesia Complications:: None Swallowing reflex intact?: Yes Cyanosis?: No Blood Pressure: 129/40 Pulse Rate: 84 Temperature: 97.7 F Mental Status: Alert & Oriented Pain level:: 0 Nausea and/or vomitting:: None Intake, IV Amount: 50
--- NOTE | 2020-10-16 20:34 | PC.NURSE ---
pt has done well since arrival to floor. no pain voiced. vitals have been wnl. polar pack in place. wound vac in place w/o issue. will cont. to monitor.
[2020-10-17] VITALS (7 sets, daily range): BP systolic 107–167; BP diastolic 56–93; PULSE 76–103; RESP 16–20; TEMP 36.4–37.1; O2SAT 92–99; BMI 23.2
--- NOTE | 2020-10-17 05:04 | PC.NURSE ---
pt A&OX4 lungs CTA. surgical dressing in place c/d/i. wound vac, polar pack in place. f/c draining yellow urine. pt medicated for pain x1 this shift per Mar. daughter @ bedside
[2020-10-17 06:22] LABS: Basophils % 0.2 % (0.1-2.0); Eosinophils % 0.5 % (0.1-12.0); Hematocrit 31.8 % (37.0-47.0); Hemoglobin 10.5 g/dL (12.2-16.2); Lymphocytes % 14.5 % (10-50); Mean Corpuscular HGB Conc 32.9 g/dL (31.8-35.4); Mean Corpuscular Hemoglobin 31.5 pg (27.0-31.2); Mean Corpuscular Volume 95.8 fl (81-99); Mean Platelet Volume 9.2 fl (7.4-10.4); Monocytes # 0.6 K/mm3 (0.1-1.0); Monocytes % 8.8 % (1.7-9.3); Neutrophils # 5.3 K/mm3 (1.8-7.8); Platelet Count 136 K/mm3 (142-424); Red Blood Count 3.32 M/mm3 (4.20-5.40); Red Cell Distribution Width 13.4 % (11.5-17.5)
[2020-10-17 06:25] LABS: Chloride 107 mmol/L (98-107); Sodium 137 mmol/L (136-145)
[2020-10-17 06:26] LABS: Potassium 4.6 mmoL/L (3.5-5.1)
[2020-10-17 06:28] LABS: Anion Gap 7.6 mEq/L (5-15); Blood Urea Nitrogen 32 mg/dl (7-17); Carbon Dioxide 27 mmol/L (22.0-30.0); Creatinine Clearance Estimated 38 mL/min (50-200); Estimated Glomerular Filt Rate 48 ml/min (>60); GFR (African American) 58 ML/MIN (>60)
[2020-10-17 06:29] LABS: Calcium 8.3 mg/dl (8.4-10.2); Glucose 94 mg/dl (74-100)
--- NOTE | 2020-10-17 07:27 | HMH.PHAINT ---
Medication reconciliation completed using physician office note, pharmacy claims data, and patient/relative interview.
--- NOTE | 2020-10-17 08:12 | P.PN_ITS ---
Internal Medicine - PN: Subj *Date: 10/17/20 *Time: 08:12 Interval history: Patient did well overnight. Did have a couple intravenous pain medication dosage but pain is tolerable this morning. She is awake, pleasant. Has eaten some breakfast. Exam Vital signs and Labs for Last 24 Hours: Temp Pulse Resp BP Pulse Ox 98.7 F 84 17 121/63 99 10/17/20 04:00 10/17/20 04:00 10/17/20 04:00 10/17/20 04:00 10/17/20 04:00 Laboratory Results - last 24 hr 10/16/20 09:31: Urine Color Yellow, Urine Appearance Clear, Urine pH 6.0, Ur Specific [place] 1.020, Urine Protein Negative, Urine Glucose (UA) Negative, Urine Ketones Negative, Urine Blood Trace-l, Urine Nitrate Positive, Urine Bilirubin Negative, Urine Urobilinogen 0.2, Ur Leukocyte Esterase Trace, Urine RBC 3-5, Urine WBC 3-5, Ur Squamous Epith Cells 3-5 10/17/20 05:50: WBC 7.0, RBC 3.32 L, Hgb 10.5 L, Hct 31.8 L, MCV 95.8, MCH 31.5 H, MCHC 32.9, RDW 13.4, Plt Count 136 L, MPV 9.2, Neut % (Auto) 76.0, Lymph % (Auto) 14.5, [place] % (Auto) 8.8, Eos % (Auto) 0.5, Baso % (Auto) 0.2, Neut # (Auto) 5.3, Lymph # (Auto) 1.0, [place] # (Auto) 0.6, Eos # (Auto) 0.0, Baso # (Auto) 0.0 10/17/20 05:50: Sodium 137, Potassium 4.6, Chloride 107, Carbon Dioxide 27, Anion Gap 7.6, BUN 32 H, Creatinine 1.10 H, Estimated Creat Clear 38, Estimated GFR 48 L, Est GFR ( Amer) 58 L, Glucose 94, Calcium 8.3 L I & O for Last 24 hours: Intake & Output 10/14/20 10/15/20 10/16/20 10/17/20 11:59 11:59 11:59 11:59 Intake Total 2277 / 2277 Output Total 720 / 720 Balance 1557 / 1557 Weight 115 lb 131 lb 3 oz Narrative: Alert, cranial nerves intact. No JVD. Oropharynx clear. Heart rate regular. Lungs clear. Abdomen soft. Able to wiggle toes on both legs. Dressing on left knee clean/dry/intact. Shelton catheter in place Assessment and Plan (1) Degenerative arthritis of left knee Status: Acute Category: Medical Code(s): M17.12 - Unilateral primary osteoarthritis, left knee (2) HTN (hypertension) Status: Acute Category: Medical Code(s): I10 - Essential (primary) hypertension (3) GERD (gastroesophageal reflux disease) Status: Acute Category: Medical Code(s): K21.9 - Gastro-esophageal reflux disease without esophagitis (4) UTI (urinary tract infection) Status: Acute Category: Medical Code(s): N39.0 - Urinary tract infection, site not specified (5) Acute pain Status: Acute Category: Medical Code(s): R52 - Pain, unspecified - Assessment and plan all Dx Assessment and Plan for all problems:: Has done well postoperative day #1. Mobilization with PT today. DC Shelton catheter. Continue Macrobid for UTI that was present on admission.
--- NOTE | 2020-10-17 10:03 | P.PN_ITS ---
Subjective Date: 10/17/20 Time: 09:30 Principal diagnosis: s/p L TKA Interval history: The patient is doing well this morning, no acute events reported overnight. She is currently working with PT and as I watched, she stood from bed and ambulated to the door with minimal assistance. She reports pain that is present in the L knee but controlled with medications. Her grimm is to be removed this morning. No chest pain or shortness of breath, no complaints overall. PN: Obj Ex Vital signs: Temp Pulse Resp BP Pulse Ox 98.7 F 76 20 126/60 99 10/17/20 04:00 10/17/20 08:28 10/17/20 08:28 10/17/20 08:28 10/17/20 08:28 - Constitutional no acute distress - Routine HEENT Exam Head: Present: normocephalic Eye: Present: EOMI ENT: Present: mucous membranes moist - Routine Neck Exam Present: supple, trachea midline - Routine Respiratory Exam Absent: respiratory distress, wheezes - Routine Cardiovascular Exam Present: RRR - Routine Abdominal Exam Present: soft. Absent: tenderness - Routine Exam Comments: grimm to gravity with clear yellow urine - Routine Extremities Exam Comments: LLE dressings c/d/i, incisional wound vac in place +DF/PF/EHL LLE SILT distally LLE in all distributions palpable pedal pulses LLE, foot pink/warm L calf soft, non-tender - Routine Skin Exam Present: warm - Routine Neurological Exam Present: alert, oriented X3, moving all extremities, normal tone, vision grossly intact, hearing grossly intact (hard of hearing ). Absent: sensory deficit, motor deficit, altered mental status - Routine Psychiatric Exam Present: normal affect - Urinary Catheter Management Grimm Cath placed during this visit: no Progress Note: A&P (1) Degenerative arthritis of left knee Status: Acute (2) HTN (hypertension) Status: Acute (3) GERD (gastroesophageal reflux disease) Status: Acute (4) UTI (urinary tract infection) Status: Acute (5) Acute pain Status: Acute Assessment and Plan for All Diagnoses:: 80yo F POD 1 s/p L TKA -- WBAT LLE -- PT/OT to continue while admitted -- elevate/ice LLE; [facility] device for cryotherapy -- SCDs BLE, encourage IS 10x/hr while awake -- lovenox 40mg QD to today for DVT prophy; after 14 days will transition to ASA -- pain control: percocet PO as needed; dilaudid IV for severe breakthrough only -- finish 24hr antibiotic prophy; 1g cefazolin IV q8 hr x 2 -- macrobid 100mg BID x 7 days total -- continue home medications -- Dr. Wheeler on consult for medical management -- care management c/s: dispo planning/DME
--- NOTE | 2020-10-17 11:15 | HMH.OTEV ---
OT Inpatient Evaluation Rehab OT IP Evaluation Start: 10/16/20 13:34 Freq: ONCE Status: Complete Protocol: Document 10/17/20 11:10 [facility] (Rec: 10/17/20 11:14 [facility] [id number]) Rehab OT IP Assessment Subjective History Pt oriented x 4 on arrival. Pt agreeable to engage in therapy evaluation. Daughter present during therapy evaluation. Pt was admitted after having a L TKA on . Pt has a past medical history of GERD, HTN, and Ulcer. Pt was living with daughter and sister prior to surgery. Pt claims she was independent with all ADL's. Pt reports her family usually completed IADL's. Recently she was using a walker during ambulation due to her knee condition becoming worse. Subjective I could do most things by myself. Objective Patient Orientation Person,Place,Birthday,Year Upper Extremity Gross ROM WFL Bed Mobility bed mobility-scooting,bed mobility - supine/sit,bed mobility - rolling Assist Level Minimal x 1 (25% assist) Transfer Training Sit/Stand Transfer Assist Level Moderate x 1 (50% assist) Rehab OT IP prob,goals,plan Problems Date of Evaluation: 10/17/20 OT IP Problems Bed Mobility,Transfers,Gait, Balance,Self care,Safety Rehab Potential Rehab Potential Good Equipment Needs Assistive Devices Rolling / Wheeled Walker Plan OT intervention Plan Bed Mobility,Transfers,Gait, Balance,Self care,Safety, Therapeutic Exercise OT Plan Frequency Daily Duration LOS Discharge Goals Bed Mobility Ability Standby Assistance Sit to Stand Chair Transfer Ability Minimal x 1 (25% assist) Chair Transfer Ability Contact Guard/Hand Hold Chair Transfer Technique Sit to/from Ambulatory Chair Transfer Assistive Devices Rolling Walker Self care skills fully toilet trained,uses utensils to feed self Feeding Ability Independent Lower Body Dressing Ability Assistance X1 Upper Body Dressing Ability Standby Assistance Bathing Ability
--- NOTE | 2020-10-17 12:11 | HMH.PTEV ---
Physical Therapy Evaluation Rehab PT IP Evaluation Start: 10/16/20 13:34 Freq: ONCE Status: Active Protocol: Document 10/17/20 12:00 [facility] (Rec: 10/17/20 12:11 [facility] [id number]) Subjective/History History History This is the initial IP PT evaluation for Susan Dudley. Pt is an 80 y/o female admitted to [facility] med/surg unit s/p L TKA. Pt had knee arthroplasty on 10/16/20 but due to length of surgery and extended time in PACU pt was not seen by PT until this AM. Pt had long hx of DJD of L knee. Subjective Subjective Pt reports c/o pain in L knee Rehab PT IP Eval Objective Appearance Patient Behavior Appropriate,Cooperative Patient Orientation Person,Place,Time Difficulty following instructions none Speech Pattern Clear Ambulation Patient Able to Ambulate Yes Ambulation Observation IP General Gait Pattern Observation Antalgic Gait,Decrease Weight Bear (L) Ambulation Distance (feet) 20 Ambulation Assistive Device Rolling Walker Ambulation Ability Contact Guard/Hand Hold Balance Ability to Arise Able, uses arms to help Sitting Balance Steady, safe Standing Balance Steady, wide stance Dynamic Sitting Balance Ability Good Dynamic Standing Balance Ability Poor Transfers Bed Transfer Ability Supervision/Stand by Chair Transfer Ability Supervision/Stand by,Contact Guard/Hand Hold Sit to Stand Bed Transfer Ability Supervision/Stand by,Contact Guard/Hand Hold Sit to Stand Chair Transfer Ability Supervision/Stand by,Contact Guard/Hand Hold ROM LLE PT ROM Status ABN MMT LLE PT MMT ABN Rehab PT IP prob,goals,plan Problems Date of Evaluation: 10/17/20 PT IP Problems Transfers,Gait,Balance,Self care,Safety Rehab Potential Rehab Potential Fair Equipment Needs Assistive Devices Rolling / Wheeled Walker Plan PT Intervention Plan Transfers,Gait,Self care, Safety,Therapeutic Exercise PT Plan Frequency BID Duration LOS Discharge Goals Bed Transfer Ability Supervision/Stand by,Contact Guard/Hand Hold Sit to Stand Chair Transfer Ability Supervision/Stand by,Contac
[2020-10-18 04:00] VITALS: BP 158/77; PULSE 90; RESP 14; TEMP 36.8; O2SAT 92
[2020-10-18 04:52] VITALS: BMI 23.4
--- NOTE | 2020-10-18 06:00 | PC.NURSE ---
Pt is A&Ox4 and has ambulated with walker and staff assist x2 and tolerated well. Pt did have mild pain with ambulation and was given pain med x2, good relief on reassessment. Surgical dressing in place to left leg, no discharge noted. Pulses 2+ and LOGISTICS TEAM LEADER WNL. Wound vac in use. Lungs CTA, IS completed several occasions and pt was able to reach 1,000ml. Scud in place to RLE. VSS, call light within reach. Pt did receive total linen change and basin bath this shift.
--- NOTE | 2020-10-18 07:12 | PC.NURSE ---
Lab notified this RN of positive urine cx and ESBL+. Pt is on Nitrofuratoin/Macrobid, which it is sensitive to. Dr. Mckeon and Summer notified.
--- NOTE | 2020-10-18 07:52 | P.PN_ITS ---
Internal Medicine - PN: Subj *Date: 10/18/20 *Time: 07:52 Interval history: Patient remained stable overnight. No complaints this morning. Tolerating oral pain control at this time receiving several as needed doses over the past 24 hours. Hemodynamically stable. Physical therapy saw patient yesterday, assessed her and deemed her appropriate for home with home health PT. Needs 24- hour assistance. Has family at home per her report. Denies shortness of breath, chest pain, nausea, vomiting. Still has intermittent significant pain in left knee which is expected. Exam Vital signs and Labs for Last 24 Hours: Temp Pulse Resp BP Pulse Ox 98.3 F 90 14 158/77 H 92 L 10/18/20 04:00 10/18/20 04:00 10/18/20 04:00 10/18/20 04:00 10/18/20 04:00 I & O for Last 24 hours: Intake & Output 10/15/20 10/16/20 10/17/20 10/18/20 23:59 23:59 23:59 23:59 Intake Total 1170 / 1290 2127 / 2127 946 / 946 Output Total 300 / 300 720 / 720 600 / 600 Balance 870 / 990 1407 / 1407 346 / 346 Weight 52.163 kg 59.506 kg 60.073 kg Microbiology Reports for the Last 24 Hours: Microbiology 10/16/20 09:31 Urine,Catheterized Urine Culture - Final Escherichia coli 10/16/20 10:26 Knee,Left - Deep Gram Stain - Final 10/16/20 10:26 Knee,Left - Deep Surgical Biopsy Culture - Preliminary NO GROWTH AFTER 24 HOURS Narrative: Alert, cranial nerves intact. No JVD. Oropharynx clear. Heart rate regular. Lungs clear. Abdomen soft. Able to wiggle toes on both legs. Dressing on left knee clean/dry/intact. Assessment and Plan (1) Degenerative arthritis of left knee Status: Acute Category: Medical Code(s): M17.12 - Unilateral primary osteoarthritis, left knee (2) HTN (hypertension) Status: Acute Category: Medical Code(s): I10 - Essential (primary) hypertension (3) GERD (gastroesophageal reflux disease) Status: Acute Category: Medical Code(s): K21.9 - Gastro-esophageal reflux disease without esophagitis (4) UTI (urinary tract infection) Status: Acute Category: Medical Code(s): N39.0 - Urinary tract infection, site not specified (5) Acute pain Status: Acute Category: Medical Code(s): R52 - Pain, unspecified - Assessment and plan all Dx Assessment and Plan for all problems:: 80-year-old female status post left knee replacement. Has done well postop day 2. Mobilizing daily. Physical therapy assessed her yesterday. No contraindication to discharging home with further physical therapy in the outpatient setting under the care of her family. Rama catheter discontinued yesterday. Of note her UTI is secondary to E. coli. Sensitive to Macrobid for which she is already on. Recommend continuing Macrobid for a total of 7 days. Tolerating good p.o. intake. Will defer pain control to orthopedics. Medically stable for discharge home. Appreciate the opportunity to consult on this patient. Will follow up with her in the outpatient setting.
[2020-10-18 08:00] VITALS: BP 161/87; PULSE 92; RESP 19; TEMP 37.1; O2SAT 96
--- NOTE | 2020-10-18 12:05 | SW/DCPLANNER ---
Addendum entered by Shannon Ortega 10/18/20 13:29: Noe from [facility] stated that patient information has been reviewed and services will begin within the next two days for this patient. Patient will discharge home today. Original Note: Patient will discharge home later today. Family stated that someone is with patient 08/06 at home. Family has requested services from [facility]. Patient information and order has been faxed to Noe with [facility]. I will follow up with Noe once patient information/order is reviewed. Patient has a walker, wheelchair and BSC at home. Patient will discharge home later today.
--- NOTE | 2020-10-18 12:08 | P.PN_ITS ---
Subjective Date: 10/18/20 Time: 10:30 Principal diagnosis: s/p L TKA Interval history: The patient is doing well this morning, though somewhat groggy. She says she feels fatigue and has been sleeping on and off throughout the morning. She has been working with physical therapy and doing well per their report. She is having some difficulty with dorsiflexion of the left ankle but has not been dragging the foot when she walks. No fevers or chills reported, no chest pain or shortness of breath. PN: Obj Ex Vital signs: Temp Pulse Resp BP Pulse Ox 98.7 F 92 H 19 161/87 H 96 10/18/20 08:00 10/18/20 08:00 10/18/20 08:00 10/18/20 08:00 10/18/20 08:00 - Constitutional no acute distress - Routine HEENT Exam Head: Present: normocephalic Eye: Present: EOMI ENT: Present: mucous membranes moist - Routine Neck Exam Present: supple, trachea midline - Routine Respiratory Exam Absent: respiratory distress, wheezes - Routine Cardiovascular Exam Present: RRR - Routine Abdominal Exam Present: soft. Absent: tenderness - Routine Extremities Exam Comments: LLE dressings c/d/i, incisional wound vac in place no erythema, ecchymosis L knee +PF/EHL LLE; the patient is struggling with DF today. some DF present but only to neutral. SILT distally LLE in all distributions palpable pedal pulses LLE, foot pink/warm L calf soft, non-tender - Routine Skin Exam Present: warm - Routine Neurological Exam Present: alert, oriented X3, moving all extremities, normal tone, vision grossly intact, hearing grossly intact. Absent: sensory deficit, motor deficit, altered mental status - Urinary Catheter Management Shelton Cath placed during this visit: yes, but has since been removed by the nurse Insertion date: 10/16/20 Removal date: 10/17/20 Progress Note: A&P (1) Degenerative arthritis of left knee Status: Acute (2) HTN (hypertension) Status: Acute (3) GERD (gastroesophageal reflux disease) Status: Acute (4) UTI (urinary tract infection) Status: Acute (5) Acute pain Status: Acute Assessment and Plan for All Diagnoses:: 80yo F POD 2 s/p L TKA -- WBAT LLE -- PT/OT to continue while admitted; HHPT ordered for home -- elevate/ice LLE; [facility] device for cryotherapy -- SCDs BLE, encourage IS 10x/hr while awake -- lovenox 40mg QD for DVT prophy; after 14 days will transition to ASA -- pain control: percocet PO q4-6 hrs. Recommend scheduling while at home to decrease pain, if pain improves after 2-3 days may return to PRN and wean to tylenol as tolerated. -- macrobid 100mg BID x 7 days total; started on admission for UTI, which is E. coli and sensitive to macrobid. -- continue home medications -- Dr. Wheeler on consult for medical management -- care management c/s: dispo planning/DME --> medically appropriate for d/c today, will d/c with HHPT and follow-up in clinic next week
--- NOTE | 2020-10-18 12:14 | HMH.DCSUM ---
General - General Admission date:: 10/16/20 Discharge date: 10/18/20 HPI HPI: 80yo F with L knee DJD that has failed conservative therapy. I have been following her as an outpatient for nearly 2 years, and the pain in the knee has progressively worsened despite 3 intra-articular corticosteroid injections and 1 synvisc injection from me. She is unable to take NSAIDs due to h/o NSAID-induced gastric ulcer. She has tried bracing and activity modification, in addition to oral analgesics but the pain has progressed to the point it is inhibiting her ability to perform ADLs and is adversely affecting her quality of life. In addition to this her valgus deformity has progressively worsened over the past year. No injuries reported. Surgery was planned for earlier in the year but delayed due to the presence of LLE edema and a non-healing ulcer over the medial L ankle. This healed after treatment at the wound care clinic at . Pre-operatively she was negative for covid-19 antibodies and her labs were within normal limits. However, she did have a UTI (E. Coli); her PCP called in macrobid; the patient isn't sure if she took it. PMH = HTN, GERD, gastric ulcer PSH = R TKA 2015; B/L CAROLANN Allg = statins, NSAIDs Meds = carvedilol, vitamin D3, furosemide, norco 7.5, metaxolone SocHx = no alcohol, drug or tobacco use Hospital Course Hospital Course: Post-operatively the patient was admitted to the med/surg floor for continuing post-operative care. IV antibiotics were continued for 24 hours for standard surgical prophylaxis. Lovenox was started POD 1 for DVT prophylaxis. Home medications were restarted and macrobid ordered for UTI. She began participating in PT/OT on the morning of POD 1 and deemed safe for d/c home with HHPT. Vitals remained stable with no fevers/chills, no hypotension or tachycardia. Pain was controlled with Percocet 5/325mg and IV dilaudid for breakthrough. Incisional wound vac awas placed in the OR and will be removed at first post-op follow-up in the office on 10/26/20. She was provided with prescriptions for percocet, macrobid and lovenox, in addition to written post-op discharge instructions. Objective Vital signs: Temp Pulse Resp BP Pulse Ox 98.7 F 92 H 19 161/87 H 96 10/18/20 08:00 10/18/20 08:00 10/18/20 08:00 10/18/20 08:00 10/18/20 08:00 no acute distress - *Routine HEENT Exam Head: Present: normocephalic Eye: Present: EOMI ENT: Present: mucous membranes moist - *Routine Neck Exam Present: supple, trachea midline - *Routine Respiratory Exam Absent: respiratory distress, wheezes - *Routine Cardiovascular Exam Present: RRR - *Routine Abdominal Exam Present: soft. Absent: tenderness - *Routine Extremities Exam Comments: LLE dressings c/d/i, incisional wound vac in place no erythema, ecchymosis L knee +PF/EHL LLE; the patient is struggling with DF today. some DF present but only to neutral. SILT distally LLE in all distributions palpable pedal pulses LLE, foot pink/warm L calf soft, non-tender - *Routine Skin Exam Present: warm - *Routine Neurological Exam Present: alert, oriented X3, moving all extremities, normal tone, vision grossly intact, hearing grossly intact, normal speech. Absent: sensory deficit, motor deficit, altered mental status Results Completed studies during hospitalization [Text1]: Laboratory Results - last 72 hr 10/16/20 10/17/20 10/17/20 09:31 05:50 05:50 WBC 7.0 RBC 3.32 L Hgb 10.5 L Hct 31.8 L MCV 95.8 MCH 31.5 H MCHC 32.9 RDW 13.4 Plt Count 136 L MPV 9.2 Neut % (Auto) 76.0 Lymph % (Auto) 14.5 Lassen % (Auto) 8.8 Eos % (Auto) 0.5 Baso % (Auto) 0.2 Neut # (Auto) 5.3 Lymph # (Auto) 1.0 Lassen # (Auto) 0.6 Eos # (Auto) 0.0 Baso # (Auto) 0.0 Sodium 137 Potassium 4.6 Chloride 107 Carbon Dioxide 27 Anion Gap 7.6 BUN 32 H Creatinine 1.10 H Estimated Creat Clear
== END 2020-10-18 14:27 | disposition home health service (06) ==
LOC: 2ND 07:18
PROVIDERS: Admitting Provider Orthopaedic Surgery; PCP Internal Medicine Adolescent Medicine; Visit Provider Orthopaedic Surgery
PROC: (CPT 27447; principal; 2020-10-16 09:00)
DX: M17.12 Unilateral primary osteoarthritis, left knee (principal); I10 Essential (primary) hypertension; K21.9 Gastro-esophageal reflux disease without esophagitis; N39.0 Urinary tract infection, site not specified; Z79.899 Other long term (current) drug therapy; Z88.8 Allergy status to other drugs, medicaments and biological substances; M21.062 Valgus deformity, not elsewhere classified, left knee
CPT/HCPCS: 27447; 36415; 73560; 80048; 81001; 85025; 87070; 87086; 87088; 87186; 87205; 88305; 96374; 97110; 97116; 97161; 97166; 97530; 97535; C1713; C1776; G0378; J2405

== ENCOUNTER → 2020-10-26 14:39 | Outpatient (CLI) | payer MEDICARE, OTHER, SELFPAY ==
--- NOTE | 2020-10-26 14:44 | XR_ITS ---
PROCEDURE: XR KNEE LT 3V CLINICAL INDICATION: s/p L TKA COMPARISON: CR [id number] XR knee LT 4V from 12/01/2018 CR XR KNEE LT 4V from 01/30/2020 CR XR KNEE LT 4V from 10/08/2020 CR XR KNEE LT 2V from 10/16/2020 FINDINGS: Good alignment status post total knee replacement. No evidence of orthopedic complication. No acute fracture or dislocation. No lytic or blastic change. There is some residual soft tissue gas noted. Postsurgical drain is in place IMPRESSION: Good alignment status post total knee replacement. Dictated by: Giorgio Hopper MD 10/26/2020 16:39 Giorgio Hopper MD in [place] 10/26/2020 16:39
== END ==
PROVIDERS: PCP Internal Medicine Adolescent Medicine; Visit Provider Orthopaedic Surgery
DX: M17.10 Unilateral primary osteoarthritis, unspecified knee (principal); Z96.652 Presence of left artificial knee joint
CPT/HCPCS: 73562

== ENCOUNTER → 2020-12-10 15:03 | Outpatient (CLI) | payer MEDICARE, OTHER, SELFPAY ==
--- NOTE | 2020-12-10 15:09 | XR_ITS ---
PROCEDURE: XR KNEE LT 3V CLINICAL INDICATION: s/p LT TKA-- dos: 10/16/20 Follow-up knee replacement COMPARISON: CR XR KNEE LT 4V from 01/30/2020 CR XR KNEE LT 4V from 10/08/2020 CR XR KNEE LT 2V from 10/16/2020 CR XR KNEE LT 3V from 10/26/2020 FINDINGS: Total knee prosthesis is in place in good position with good alignment. No significant change. Postsurgical gas no longer evident. IMPRESSION: Good alignment status post total knee replacement Dictated by: Giorgio Hopper MD 12/10/2020 16:21 Giorgio Hopper MD in [place] 12/10/2020 16:21
== END ==
PROVIDERS: PCP Internal Medicine Adolescent Medicine; Visit Provider Orthopaedic Surgery
DX: Z96.652 Presence of left artificial knee joint (principal); M25.562 Pain in left knee
CPT/HCPCS: 73562

== ENCOUNTER → 2021-01-11 15:01 | Outpatient (CLI) | payer MEDICARE, OTHER, SELFPAY ==
--- NOTE | 2021-01-11 15:07 | XR_ITS ---
PROCEDURE: XR KNEE LT 3V CLINICAL INDICATION: Left knee Injury with pain COMPARISON: CR XR KNEE LT 4V from 10/08/2020 CR XR KNEE LT 2V from 10/16/2020 CR XR KNEE LT 3V from 10/26/2020 CR XR KNEE LT 3V from 12/10/2020 FINDINGS: S/p total prosthesis placement on the left. No acute fracture or dislocation. No evidence of prosthesis malfunction. There is good alignment. IMPRESSION: No acute findings. Dictated by: Giorgio Hopper MD 01/11/2021 15:50 Giorgio Hopper MD in [place] 01/11/2021 15:50
== END ==
PROVIDERS: PCP Internal Medicine Adolescent Medicine; Visit Provider Orthopaedic Surgery
DX: M25.562 Pain in left knee (principal); Z96.652 Presence of left artificial knee joint
CPT/HCPCS: 73562

== ENCOUNTER → 2021-04-05 14:47 | Outpatient (CLI) | payer MEDICARE, OTHER, SELFPAY ==
--- NOTE | 2021-04-05 14:50 | XR_ITS ---
PROCEDURE: XR KNEE LT 3V CLINICAL INDICATION: s/p LT TKA COMPARISON: CR XR KNEE LT 2V from 10/16/2020 CR XR KNEE LT 3V from 10/26/2020 CR XR KNEE LT 3V from 12/10/2020 CR XR KNEE LT 3V from 01/11/2021 FINDINGS: Status post total left knee replacement. There is good alignment. No significant change from the previous study.. IMPRESSION: Good alignment status post total knee replacement Dictated by: Giorgio Hopper MD 04/05/2021 15:58 Giorgio Hopper MD in [place] 04/05/2021 15:58
== END ==
PROVIDERS: PCP Internal Medicine Adolescent Medicine; Visit Provider Orthopaedic Surgery
DX: M25.562 Pain in left knee; Z96.652 Presence of left artificial knee joint
CPT/HCPCS: 73562

== ENCOUNTER 2021-06-19 16:00 | Outpatient (RCR) | payer MEDICARE, OTHER, SELFPAY ==
--- NOTE | 2021-04-22 17:46 | HMH.PTOPEV ---
PT Outpatient Evaluation Rehab PT Outpatient Evaluation Start: 04/22/21 15:42 Freq: Status: Active Protocol: Document 04/22/21 15:43 PDESEROUX (Rec: 04/22/21 17:46 PDESEROUX [id number]) Electronically Signed By Ronnie Gonzalez, PT 04/22/21 15:43 Outpatient Therapy Subjective History Subjective History Pt. is a 80 year old female who presents to outpatient PT clinic w/ c/o subacute/chronic and constant LLE foot drop(since LLE TKA) and lateral calf soreness (1 month ago). Pt. reports having a LLE TKA on 10/16/20, but starting noticing increased soreness in the lateral calf 1 month ago. However, pt. reports having complete LLE foot drop S/P LLE TKA, but states it has improved. Recent diagnostic imaging indicative of normal alignment post surgery per pt. report. Pt. reports having a LLE ankle AFO. Pt. reports PLOF(prior to LLE TKA) she was ambulating w/ a SPC, and would like to return to gait w/ SPC. Pt. reports requiring a 4-point standard walker at this time d /t balance issues. Pt. reports having 1 fall a few months ago where she had LOB posteriorly and fell bkwds. Pt . reports having 4 months of Home Health PT S/P LLE TKA. Pt . RTMD 05/17/21. Current medications include Lasix, Carvedilol, Acetaminophen, and Vitamin D. PMH includes RLE TKA, RLE ACROLANN, EGD, Hyperlipidemia, Hypertension, chronic LBP! secondary to spinal stenosis, and Vitamin D deficiency. Pt. denies having a pacemaker nor latex allergy . Chief Complaint Pain,Paresthesia,Weakness Symptom Type Ache,Burning,Other Symptoms Relieved By Rest/Positioning,Prescription Meds Symptoms Aggravated By
== END 2021-06-19 17:00 | disposition home or self-care (01) ==
LOC: PT.CARL 16:00
PROVIDERS: PCP Internal Medicine Adolescent Medicine; Visit Provider Internal Medicine Adolescent Medicine
DX: M21.372 Foot drop, left foot (principal); M25.562 Pain in left knee; Z96.652 Presence of left artificial knee joint
CPT/HCPCS: 97014; 97110; 97116; 97140; 97163; 97164; G0283

== ENCOUNTER → 2021-08-20 08:00 | Outpatient (CLI) | payer MEDICARE, OTHER, SELFPAY ==
[2021-08-21 09:21] LABS: Basophils # 0.1 K/mm3 (0-0.2); Basophils % 0.9 % (0.1-2.0); Eosinophils # 0.3 K/mm3 (0.0-0.4); Lymphocytes # 1.2 K/mm3 (0.7-4.5); Lymphocytes % 22.3 % (10-50); Mean Corpuscular HGB Conc 31.9 g/dL (31.8-35.4); Mean Corpuscular Hemoglobin 31.6 pg (27.0-31.2); Mean Platelet Volume 10.8 fl (7.4-10.4); Monocytes # 0.4 K/mm3 (0.1-1.0); Neutrophils # 3.5 K/mm3 (1.8-7.8); Neutrophils % 63.7 % (37.0-80.0); Platelet Count 244 K/mm3 (142-424); Red Blood Count 4.44 M/mm3 (4.20-5.40); Red Cell Distribution Width 13.3 % (11.5-17.5); White Blood Count 5.6 K/mm3 (4.8-10.8)
[2021-08-21 09:33] LABS: Chloride 98 mmol/L (98-107); Sodium 141 mmol/L (136-145)
[2021-08-21 09:36] LABS: Blood Urea Nitrogen 29 mg/dl (7-17); Calcium 9.6 mg/dl (8.4-10.2); Carbon Dioxide 29 mmol/L (22.0-30.0); Estimated Glomerular Filt Rate 53 ml/min (>60); GFR (African American) 64 ML/MIN (>60)
[2021-08-21 09:51] LABS: Glucose 36 mg/dl (74-100)
== END ==
PROVIDERS: Visit Provider Internal Medicine Adolescent Medicine
DX: I10 Essential (primary) hypertension (principal); R60.9 Edema, unspecified
CPT/HCPCS: 80048; 85025

== ENCOUNTER → 2022-01-07 14:45 | Outpatient (CLI) | payer MEDICARE, OTHER, SELFPAY ==
--- NOTE | 2022-01-07 14:52 | XR_ITS ---
FINAL REPORT CLINICAL HISTORY: SP LT TKA by rupesh Mckeon 10/16/2020 LT KNEE PAIN COMPARISON: April 05, 2021 FINDINGS: LEFT KNEE Two views were obtained. There is no acute fracture. There is a total joint prosthesis. There is anatomic alignment. There is no soft tissue abnormality. IMPRESSION: No acute bony abnormality. Reviewed, Interpreted and Dictated by Alfred Winters MD Transcribed by Audra Rodriguez Authenticated by Alfred Winters MD on 01/07/2022 04:17:51 PM [facility]
== END ==
PROVIDERS: PCP Internal Medicine Adolescent Medicine; Visit Provider Orthopaedic Surgery
DX: M25.562 Pain in left knee; Z96.652 Presence of left artificial knee joint
CPT/HCPCS: 73560

== ENCOUNTER 2025-07-11 15:03 | Inpatient (IN) | payer MEDICARE, OTHER, SELFPAY ==
--- OUTSIDE RECORDS SUMMARY | 2025-06-13 07:00 | XMS_ITS ---
Author Organization Located within [facility] Address [address] [facility] [address] [place] [address] Care Team Providers Care Photo Booth Operator Name Role Phone Hayder Wheeler Primary Care Provider [phone] Allergies Allergen (clinical drug ingredient) Drug/Non Drug Allergy documented on EMR Reaction Allergy Type Onset Date Status Non-steroidal anti-inflammatory agent (FN) NSAIDs Ulcer Drug Allergy Active Substance with 1-umoerpl-4-methylgluta ryl-coenzyme A reductase inhibitor mechanism of action (substance) Statins Unknown Drug Allergy Active REASON FOR VISIT med ck, weakness Medications Medication SIG (Take, Route, Frequency, Duration) Notes Start Date End Date Status Furosemide 40 MG 1 tab(s) orally once a day; Duration: 90 days 08/20/2021 Active Metoprolol Tartrate 25 MG 1/2 Orally Twi ce a day; Duration: 30 days 04/25/2025 Active HYDROcodone-Acetaminophen 7.5-325 MG 1 tab(s) orally every 6 hours; Duration: 30 days 05/11/2025 Active Spironolactone 25 MG 1 tablet Orally twi ce daily; Duration: 30 days 04/25/2025 Active Eliquis 2.5 MG one tab Orally twice a day; Duration: 30 days 04/25/2025 Active Vitamin D3 50 MCG (1999) 1 tab(s) ora lly once a day Active Vital Signs Temperature 97.9 degrees Fahrenheit 06/13/20 25 Blood pressure systolic 92 mm Hg 06/13/20 25 Blood pressure diastolic 56 mm Hg 025 Heart Rate 72 /min 06/13/2025 Height 4 ft 8 in in 06/13/2025 Weight 103 lbs 06/13/2025 BMI 23.09 kg/m2 06/13/2025 Encounters Encounter Location Date Provider Diagnosis [address] [place] [address] 06/13/2025 Hayder Wheeler Edema, unspecified R60.9 and New onset atrial fibrillation I48.91 Assessments Encounter Date Diagnosis (ICD Code) Assessment Notes Treatment Notes Treatment Clinical Notes Section Notes 06/13/2025 Edema, unspecified (ICD-10 - R60.9) - Improved on spironolactone and furosemide - Will continue current regimen - May consider discontinuing spironolactone at future visits if BP continues to be low 06/13/2025 New onset atrial fibrillation (ICD-10 - I48.91) - Has new onset Afib per EKG and had HR in 120s - started on Eliquis and metoprolol - Feeling fatigued, BP log kept by daughter has very low readings, some as low as 60/40s - Eliquis is very expensive, provided samples. Denies any signs of bleeding - Due to low BP readings, will decrease metoprolol from 25mg to 12.5mg BID Plan Of Treatment Medication Medication Name Sig Start Date Stop Date Notes Metoprolol Tartrate 25 MG 1/2 Orally Twi ce a day; Duration: 30 days 04/25/2025 Treatment Notes Assessment Notes Edema, unspecified - Improved on spironolactone and furosemide - Will continue current regimen - May consider discontinuing spironolactone at future visits if BP continues to be low New onset atrial fibrillation - Has new onset Afib per EKG and had HR in 120s - started on Eliquis and metoprolol - Feeling fatigued, BP log kept by daughter has very low readings, some as low as 60/40s - Eliquis is very expensive, provided samples. Denies any signs of bleeding - Due to low BP readings, will decrease metoprolol from 25mg to 12.5mg BID Next Appt Details Follow Up: 6 Weeks, Reason: Progress Notes * Susan MCDERMOTT:[birth year] (84 yo F)Acc No.[id number]:06/13/2025 Progress Notes Patient: S Susan ESCALANTE Number:[id number] Provider: Lynn Wheeler MD :1940 A ge:84 Y S ex:Female Date:06/13/2025 Address:[address] [id number] Subjective: * Chief Complaints: * 1 . Med ck. 2. Weakness. * HPI: g en: Susan Mcdermott is an 84 yo here for follow up. She is accompanied by her daughter who is concerned of weakness and general fatigue. She was recently started on Eliquis and metoprolol for Afib. She keeps a log of her BP and has some readings as low as 60/40s. S welling in lower extremities has improved since being on spironolactone and furosemide. * Medical History: H yperlipidemia - intolerant to statins, Hypertension, Chronic back pain -spinal stenosis, Post-menopausal, OSTEOARTHRO NOS-OTH SITE, Vitamin D deficiency NOS, Right hip replacement, Gastric ulcer with acute blood loss anemia 05/30 - EGD 04/02 with reactive gastropathy - no ulcer, Status post left hip replacement, Status post left hip replacement. * Surgical History: r ight knee replacement , right hip replacemenet , EGD 05/31, 08/31, 03/2018, left knee replacement . * Hospitalization/Major Diagno stic Procedure: a carlos surgery , Gastric ulcer with anemia requiring transfusions 05/2016. * Family History: F ather: , diagnosed with Hypertension. M other: , diagnosed with Hypertension. P aternal Grand Father: . P aternal Grand Mother: . M aternal Grand Father: . M aternal Grand Mother: . S iblings: alive. C hildren: alive. 1 brother(s) , 2 sister(s) . 1 daughter(s) - healthy. . * Social History: S moking A re you a:: nonsmoker. R ecreational drug use: no. Home smoke detector use: no. Caffeine: no. Living Will: No. Alcohol: no. Sexually active: no. Travel outside [place]: no. Occupation: housekeeping. Lives with daughter. Uses walker in home. * Medications: T aking Vitamin D3 50 MCG (1999 [place]) Tablet 1 tab(s) orally once a day , Taking Furosemide 40 MG Tablet 1 tab(s) orally once a day , Taking Metoprolol Tartrate 25 MG Tablet 1 tablet with food Orally Twice a day , Taking Spironolactone 25 MG Tablet 1 tablet Orally twice daily , Taking Eliquis 2.5 MG Tablet one tab Orally twice a day , Taking HYDROcodone-Acetaminophen 7.5-325 MG Tablet 1 tab(s) orally every 6 hours , Medication List reviewed and reconciled with the patient * Allergies: S tatins, NSAIDs: Ulcer - Contraindication. Objective: * Vitals: N urse: dw, Pain: 0, Temp: 97.9, RR: 20, HR: 72, BP: 92/56, Ht: 4 ft 8 in, Wt: 103, BMI:23.09. * Examination: G eneral Examination: General P leasant and Cooperative, NAD on RA,. Heart: r egular rate and rhythm, no murmurs. Extremities: 2 + pitting edema in lower extremities. ? Assessment: * Assessment: 1. E leonila, unspecified - R60.9 (Primary) 2 . N ew onset atrial fibrillation - I48.91 Plan: * Treatment: 2. N ew onset atrial fibrillation Refill Metoprolol Tartrate Tablet, 25 MG, 1/2, Orally, Twice a day, 30 days, 30, Refills 0. ? Notes: - Has new onset Afib per EKG and had HR in 120s - started on Eliquis and metoprolol - Feeling fatigued, BP log kept by daughter has very low readings, some as low as 60/40s - Eliquis is very expensive, provided samples. Denies any signs of bleeding - Due to low BP readings, will decrease metoprolol from 25mg to 12.5mg BID * Follow Up: 6 Weeks * * Sign off status: Completed true * Provider: Lynn Wheeler MD Date: 0 06/13/2025 Generated for Mariel bryson/Glory/Mekhiitting on: 0 07/11/2025 03:35 PM EDT History and Physical Notes * HPI (History of Present Illness) Category Sub-Category Detail Notes Category Not es gen Susan Mcdermott i s an 84 yo here for follow up. She is accompanied by her daughter who is concerned of weakness and general fatigue. She was recently started on Eliquis and metoprolol for Afib. She keeps a log of her BP and has some readings as low as 60/40s. Swelling in lower extremities has improved since being on spironolactone and furosemide. Examination Category Sub-Category Detail Notes Category Not es General Examination Heart: regular rate and rhyt hm, no murmurs Extremities: 2+ pitting edema in lower extremities General Pleasant and Coopera tive, NAD on RA,
[2025-07-11] VITALS (13 sets, daily range): BP systolic 94–118; BP diastolic 48–73; PULSE 67–95; RESP 12–19; TEMP 36.5–36.7; O2SAT 95–100; BMI 20.1; BMI 20.3
--- OUTSIDE RECORDS SUMMARY | 2025-07-11 08:15 | XMS_ITS ---
Author Organization [facility] Address [address] [facility] [address] [place] [address] Care Team Providers Care Community Placement Worker Name Role Phone Hayder Wheeler Primary Care Provider Allergies Allergen (clinical drug ingredient) Drug/Non Drug Allergy documented on EMR Reaction Allergy Type Onset Date Status Non-steroidal anti-inflammatory agent (FN) NSAIDs Ulcer Drug Allergy Active Substance with 2-xqlpzrh-3-methylgluta ryl-coenzyme A reductase inhibitor mechanism of action (substance) Statins Unknown Drug Allergy Active Results Component Value Reference Range Notes COMP METABOLIC PANEL (Not ye t reviewed by provider) Interpretation: Performing Lab: Notes/Report: SODIUM 133 136-145 mmol/L POTASSIUM 5.5 3.5-5.1 mmol/L CHLORIDE 101 98-107 mmol/L CARBON DIOXIDE 21 21-32 mmol/L ANION GAP 11.0 GLUCOSE 104 70-110 mg/dL BLOOD UREA NITROGEN 45 7-18 mg/dL CREATININE 1.9 0.6-1.0 mg/dL BUN/CREATININE RATIO 23.7 9-21 ESTIMATED GLOM FILTRATION RATE 26 >60- mL/mi n GFR LIMITATION: The eGFR equation CKD-EPI 2020 is not applicable for pediatric patients or greater than 90 years of age. The following conditions may alter the GFR result: extremes in body size, malnutrition or obesity, skeletal muscle disease, paraplegia or quadriplegia, vegetarian diet or rapidly changing kiney function. OSMOLALITY (CALCULATED) 289 275-301 mosm/kg OSMOLALITY IS A CALCULATION UTILIZING THE SERUM/PLASMA SODIUM, GLUCOSE AND UREA NITROGEN (BUN) LEVELS. FOR THE MOST ACCURATE RESULT A MEASURED SERUM OSMOLALITY IS SUGGESTED. TOTAL PROTEIN 5.7 6.4-8.2 g/dL ALBUMIN 1.9 3.4-5.0 g/dL CALCIUM 8.3 8.5-10.1 mg/dL CORRECTED CALCIUM 10.0 8.5-10.1 mg/dL BILIRUBIN TOTAL 0.5 0.4-1.5 mg/dL AST (SGOT) 27 15-37 U/L ALT (SGPT) 15 12-78 U/L ALK PHOSPHATASE 172 53-141 U/L Note Unless otherwise noted testing performed at: [address] [address] Simone Ricks MD CLIA: [id number] MAGNESIUM (Not yet reviewed by provider) Interpretation: Performing Lab: Notes/Report: MAGNESIUM 2.3 1.8-2.4 mg/dL Note Unless otherwise noted testing performed at: [address] [address] Simone Ricks MD CLIA: [id number] PHOSPHOROUS (Not yet reviewe d by provider) Interpretation: Performing Lab: Notes/Report: PHOSPHORUS 3.8 2.5-4.9 mg/dL Note Unless otherwise noted testing performed at: [address] [address] Simone Ricks MD CLIA: [id number] THYROID PANEL (T3U/T4/FTI) ( Not yet reviewed by provider) Interpretation: Performing Lab: Notes/Report: T3 UPTAKE 43 30-40 % T4 TOTAL 1.8 4.8-13.9 ug/dL FREE THYROXINE INDEX (T7) 0.8 1.6-3.7 Note Unless otherwise noted testing performed at: [address] [address] Simone Ricks MD CLIA: [id number] THYROID STIMULATING HORMONE (Not yet reviewed by provider) Interpretation: Performing Lab: Notes/Report: THYROID STIMULATING HORMONE 2.28 0.34-4.80 mIU /mL Note Unless otherwise noted testing performed at: [address] [address] Simone Ricks MD CLIA: [id number] CBC AUTO W DIFF (Not yet rev iewed by provider) Interpretation: Performing Lab: Notes/Report: WBC 8.1 4.5-11.5 10 RBC 2.73 4.25-5.57 10 HGB 8.3 12.0-15.7 g/dL HCT 26.4 36.0-47.0 % MCV 96.7 80-95 fl MCH 30.4 27.0-34.0 pg MCHC 31.4 32.0-36.0 g/dL PLATELET COUNT 333 150-450 10 RDW 14.2 12.3-15.1 % MPV 9.5 7.4-10.4 fl GRANULOCYTE% 89.0 40-75 % LYMPHOCYTE% 4.7 15-57 % MONOCYTE% 6.0 4.0-12.0 % EOSINOPHIL% 0.0 0.0-4.0 % BASOPHIL% 0.1 0.0-1.0 % IMMATURE GRANULOCYTES % 0.2 0.0-0.8 % GRANULOCYTE# 7.16 LYMPHOCYTE# 0.38 MONOCYTE# 0.48 EOSINOPHIL# 0.00 BASOPHIL# 0.01 IMMATURE GRANULOCYTES # 0.02 MANUAL DIFFERENTIAL NO Note Unless otherwise noted testing performed at: [place] [id number] Simone Ricks MD CLIA: [id number] REASON FOR VISIT med ck Medications Medication SIG (Take, Route, Frequency, Duration) Notes Start Date End Date Status Vitamin D3 50 MCG (1999) 1 tab(s) ora lly once a day Active Furosemide 40 MG 1 tab(s) orally once a day; Duration: 90 days 08/20/2021 Active HYDROcodone-Acetaminophen 7.5-325 MG 1 tab(s) orally every 6 hours; Duration: 30 days 05/11/2025 Active Spironolactone 25 mg TAKE ONE TABLET BY MOUTH TWICE DAILY; Duration: 30 Active Metoprolol Tartrate 25 MG 1/2 Orally Twi ce a day; Duration: 30 days Active Eliquis 2.5 mg TAKE ONE TABLET BY M OUTH TWICE DAILY; Duration: 30 Active Vital Signs Temperature 98.2 degrees Fahrenheit 07/11/20 25 Blood pressure systolic 100 mm Hg 07/11/20 25 Blood pressure diastolic 60 mm Hg 025 Heart Rate 72 /min 07/11/2025 Height 4 ft 8 in in 07/11/2025 Weight 103 lbs 07/11/2025 BMI 23.09 kg/m2 07/11/2025 Encounters Encounter Location Date Provider Diagnosis [facility] [address] [facility] [address] [place] [address] 07/11/2025 Hayder Wheeler Dizziness and giddiness R42 ; Syncope and collapse R55 ; Orthostatic hypotension I95.1 and New onset atrial fibrillation I48.91 Assessments Encounter Date Diagnosis (ICD Code) Assessment Notes Treatment Notes Treatment Clinical Notes Section Notes 07/11/2025 Dizziness and giddiness (ICD-10 - R42) 07/11/2025 Syncope and collapse (ICD-10 - R55) 07/11/2025 Orthostatic hypotension (ICD-10 - I95.1) 07/11/2025 New onset atrial fibrillation (ICD-10 - I48.91) 07/11/2025 Other Patient signs and symptoms consistent with GI bleeding. She and her daughter both deny stigmata of bleeding. Over the past week she has got much worse. I ordered labs at local hospital They have returned showing significant drop in hemoglobin from her last lab values at 12 g. Now were at 8.3 g. Significant functional status problems. She is also orthostatic in probably dehydrated. I think after hydration her hemoglobin will drop even further. I think she needs ER evaluation for hospital admission for observation and possible transfusion. Told daughter this, communicated findings directly with ER physician at [facility], will fax labs. Multiple complexities with patient. Plan Of Treatment Treatment Notes Assessment Notes Other Patient signs and symptoms consistent with GI bleeding. She and her daughter both deny stigmata of bleeding. Over the past week she has got much worse. I ordered labs at local hospital They have returned showing significant drop in hemoglobin from her last lab values at 12 g. Now were at 8.3 g. Significant functional status problems. She is also orthostatic in probably dehydrated. I think after hydration her hemoglobin will drop even further. I think she needs ER evaluation for hospital admission for observation and possible transfusion. Told daughter this, communicated findings directly with ER physician at [facility], will fax labs. Multiple complexities with patient. Pending Test Test Name Order Date COMP METABOLIC PANEL 07/11/2025 MAGNESIUM 07/11/2025 PHOSPHOROUS 07/11/2025 THYROID PANEL (T3U/T4/FTI) 07/11/2025 THYROID STIMULATING HORMONE 07/11/2025 CBC AUTO W DIFF 07/11/2025 Next Appt Details Follow Up: prn, Reason: Progress Notes * Susan MCDERMOTT JDOB:[birth year] (84 yo F)Acc No.[id number]:07/11/2025 Progress Notes Patient: Susan DOBBINS Provider: Lynn Wheeler MD :1940 A ge:84 Y S ex:Female Date:07/11/2025 Address:[facility] [place], [id number] Subjective: * Chief Complaints: * 1 . Med ck. * HPI: g en: Susan is here with her daughter for a med check and to follow-up her fatigue symptoms. Over the past couple of days she has been increasingly fatigued and has had lots of problems with presyncopal episodes and is almost fallen a couple of times. Daughter thinks she is pale. Has not seen any evidence of blood loss, melena, vomiting. She feels very weak. Denies pains over and above her baseline. * Medical History: H yperlipidemia - intolerant [...] . M aternal Grand Mother: . S efrain: alive. C stanley: alive. 1 brother(s) , 2 sister(s) . 1 daughter(s) - healthy. . * Social History: S moking A re you a:: nonsmoker. R ecreational drug use: no. Home smoke detector use: no. Caffeine: no. Living Will: No. Alcohol: no. Sexually active: no. Travel outside [place]: no. Occupation: housekeeping. Lives with daughter. Uses walker in home. * Medications: T aking Vitamin D3 50 MCG (1999) Tablet 1 tab(s) orally once a day , Taking Furosemide 40 MG Tablet 1 tab(s) orally once a day , Taking HYDROcodone- Acetaminophen 7.5-325 MG Tablet 1 tab(s) orally every 6 hours , Taking Eliquis 2.5 mg Tablet TAKE ONE TABLET BY MOUTH TWICE DAILY , Taking Spironolactone 25 mg Tablet TAKE ONE TABLET BY MOUTH TWICE DAILY , Taking Metoprolol Tartrate 25 MG Tablet 1/2 Orally Twice a day , Medication List reviewed and reconciled with the patient * Allergies: S tatins, NSAIDs: Ulcer - Contraindication. Objective: * Vitals: N urse: sw, Pain: 0, Temp: 98.2, RR: 20, HR: 72, BP: 100/60, Ht: 4 ft 8 in, Wt: 103, BMI:23.09. * Examination: G eneral Examination: General P leasant and Cooperative, NAD on RA, I s oriented but appears very tired and appears much more pale than usual. Blood pressure and pulse are noted. Edema is actually better than baseline. Abdomen soft and nontender. Heart: r egular rate and rhythm, no murmurs. Extremities: 2 + pitting edema in lower extremities. ? Assessment: * Assessment: 1. D izziness and giddiness - R42 (Primary) 2 . S yncope and collapse - R55? 3. O rthostatic hypotension - I95.1 4 . N ew onset atrial fibrillation - I48.91 Plan: * Treatment: Value Reference Range S ODIUM 133 L 136-145 - mmol/L * P OTASSIUM 5.5 H 3.5-5.1 - mmol/L * C HLORIDE 101 98-107 - mmol/L * C ARBON DIOXIDE 21 21-32 - mmol/L * A NION GAP 11.0 - * G LUCOSE 104 70-110 - mg/dL * B LOOD UREA NITROGEN 45 H 7-18 - mg/dL * C REATININE 1.9 H 0.6-1.0 - mg/dL * B UN/CREATININE RATIO 23.7 H 9-21 - * E STIMATED GLOM FILTRATION RATE 26 L >60- - mL/ min * T OTAL PROTEIN 5.7 L 6.4-8.2 - g/dL * A LBUMIN 1.9 L 3.4-5.0 - g/dL * C ALCIUM 8.3 L 8.5-10.1 - mg/dL * C ORRECTED CALCIUM 10.0 8.5-10.1 - mg/dL * B ILIRUBIN TOTAL 0.5 0.4-1.5 - mg/dL * A ST (SGOT) 27 15-37 - U/L * A LT (SGPT) 15 12-78 - U/L * A LK PHOSPHATASE 172 H 53-141 - U/L * O SMOLALITY (CALCULATED) 289 275-301 - mosm/kg ?LAB: MAGNESIUM (Collection Date & Time - 07/11/2025 01:16 PM)* Value Reference Range M AGNESIUM 2.3 1.8-2.4 - mg/dL ?LAB: PHOSPHOROUS (Collection Date & Time - 07/11/2025 01:16 PM)* Value Reference Range P HOSPHORUS 3.8 2.5-4.9 - mg/dL ?LAB: THYROID PANEL (T3U/T4/FTI) (Collection Date & Time - 07/11/2025 01:16 PM)* Value Reference Range T 3 UPTAKE 43 H 30-40 - % * T 4 TOTAL 1.8 L 4.8-13.9 - ug/dL * F REE THYROXINE INDEX (T7) 0.8 L 1.6-3.7 - ?LAB: THYROID STIMULATING HORMONE (Collection Date & Time - 07/11/2025 01:16 PM)* Value Reference Range T HYROID STIMULATING HORMONE 2.28 0.34-4.80 - m IU/mL ?LAB: CBC AUTO W DIFF (Collection Date & Time - 07/11/2025 01:16 PM)* Value Reference Range W BC 8.1 4.5-11.5 - 10 * R BC 2.73 L 4.25-5.57 - 10 * H GB 8.3 L 12.0-15.7 - g/dL * H CT 26.4 L 36.0-47.0 - % * M CV 96.7 H 80-95 - fl * M CH 30.4 27.0-34.0 - pg * M CHC 31.4 L 32.0-36.0 - g/dL * P LATELET COUNT 333 150-450 - 10 * R DW 14.2 12.3-15.1 - % * M PV 9.5 7.4-10.4 - fl * G RANULOCYTE% 89.0 H 40-75 - % * L YMPHOCYTE% 4.7 L 15-57 - % * M ONOCYTE% 6.0 4.0-12.0 - % * E OSINOPHIL% 0.0 0.0-4.0 - % * B ASOPHIL% 0.1 0.0-1.0 - % * I MMATURE GRANULOCYTES % 0.2 0.0-0.8 - % * G RANULOCYTE# 7.16 - 10 * L YMPHOCYTE# 0.38 - 10 * M ONOCYTE# 0.48 - 10 * E OSINOPHIL# 0.00 - 10 * B ASOPHIL# 0.01 - 10 * I MMATURE GRANULOCYTES # 0.02 - 10 * M ANUAL DIFFERENTIAL NO - 2.?Syncope and collapse?LAB: COMP METABOLIC PANEL (Collection Date & Time - 07/11/2025 01:16 PM)* Value Reference Range S ODIUM 133 L 136-145 - mmol/L * P OTASSIUM 5.5 H 3.5-5.1 - mmol/L * C HLORIDE 101 98-107 - mmol/L * C ARBON DIOXIDE 21 21-32 - mmol/L * A NION GAP 11.0 - * G LUCOSE 104 70-110 - mg/dL * B LOOD UREA NITROGEN 45 H 7-18 - mg/dL * C REATININE 1.9 H 0.6-1.0 - mg/dL * B UN/CREATININE RATIO 23.7 H 9-21 - * E STIMATED GLOM FILTRATION RATE 26 L >60- - mL/ min * T OTAL PROTEIN 5.7 L 6.4-8.2 - g/dL * A LBUMIN 1.9 L 3.4-5.0 - g/dL * C ALCIUM 8.3 L 8.5-10.1 - mg/dL * C ORRECTED CALCIUM 10.0 8.5-10.1 - mg/dL * B ILIRUBIN TOTAL 0.5 0.4-1.5 - mg/dL * A ST (SGOT) 27 15-37 - U/L * A LT (SGPT) 15 12-78 - U/L * A LK PHOSPHATASE 172 H 53-141 - U/L * O SMOLALITY (CALCULATED) 289 275-301 - mosm/kg ?LAB: MAGNESIUM (Collection Date & Time - 07/11/2025 01:16 PM)* Value Reference Range M AGNESIUM 2.3 1.8-2.4 - mg/dL ?LAB: PHOSPHOROUS (Collection Date & Time - 07/11/2025 01:16 PM)* Value Reference Range P HOSPHORUS 3.8 2.5-4.9 - mg/dL ?LAB: THYROID PANEL (T3U/T4/FTI) (Collection Date & Time - 07/11/2025 01:16 PM)* Value Reference Range T 3 UPTAKE 43 H 30-40 - % * T 4 TOTAL 1.8 L 4.8-13.9 - ug/dL * F REE THYROXINE INDEX (T7) 0.8 L 1.6-3.7 - ?LAB: THYROID STIMULATING HORMONE (Collection Date & Time - 07/11/2025 01:16 PM)* Value Reference Range T HYROID STIMULATING HORMONE 2.28 0.34-4.80 - m IU/mL ?LAB: CBC AUTO W DIFF (Collection Date & Time - 07/11/2025 01:16 PM)* Value Reference Range W BC 8.1 4.5-11.5 - 10 * R BC 2.73 L 4.25-5.57 - 10 * H GB 8.3 L 12.0-15.7 - g/dL * H CT 26.4 L 36.0-47.0 - % * M CV 96.7 H 80-95 - fl * M CH 30.4 27.0-34.0 - pg * M CHC 31.4 L 32.0-36.0 - g/dL * P LATELET COUNT 333 150-450 - 10 * R DW 14.2 12.3-15.1 - % * M PV 9.5 7.4-10.4 - fl * G RANULOCYTE% 89.0 H 40-75 - % * L YMPHOCYTE% 4.7 L 15-57 - % * M ONOCYTE% 6.0 4.0-12.0 - % * E OSINOPHIL% 0.0 0.0-4.0 - % * B ASOPHIL% 0.1 0.0-1.0 - % * I MMATURE GRANULOCYTES % 0.2 0.0-0.8 - % * G RANULOCYTE# 7.16 - 10 * L YMPHOCYTE# 0.38 - 10 * M ONOCYTE# 0.48 - 10 * E OSINOPHIL# 0.00 - 10 * B ASOPHIL# 0.01 - 10 * I MMATURE GRANULOCYTES # 0.02 - 10 * M ANUAL DIFFERENTIAL NO - 3.?Others? Notes: Patient signs and symptoms consistent with GI bleeding. She and her daughter both deny stigmata of bleeding. Over the past week she has got much worse. I ordered labs at local hospital They have returned showing significant drop in hemoglobin from her last lab values at 12 g. Now were at 8.3 g. Significant functional status problems. She is also orthostatic in probably dehydrated. I think after hydration her hemoglobin will drop even further. I think she needs ER evaluation for hospital admission for observation and possible transfusion. Told daughter this, communicated findings directly with ER physician at [facility], will fax labs. Multiple complexities with patient.?? * Follow Up: p rn * * Sign off status: Completed true * Provider: Lynn Wheeler MD Date: 0 07/11/2025 Generated for Printi ng/Faxing/eTransmitting on: 0 07/11/2025 03:35 PM EDT History and Physical Notes * HPI (History of Present Illness) Category Sub-Category Detail Notes Category Not es gen Davis is here with her daughter for a med check and to follow-up her fatigue symptoms. Over the past couple of days she has been increasingly fatigued and has had lots of problems with presyncopal episodes and is almost fallen a couple of times. Daughter thinks she is pale. Has not seen any evidence of blood loss, melena, vomiting. She feels very weak. Denies pains over and above her baseline. Examination Category Sub-Category Detail Notes Category Not es General Examination Heart: regular rate and rhyt hm, no murmurs Extremities: 2+ pitting edema in lower extremities General Pleasant and Coopera tive, NAD on RA, Is oriented but appears very tired and appears much more pale than usual. Blood pressure and pulse are noted. Edema is actually better than baseline. Abdomen soft and nontender
--- NOTE | 2025-07-11 15:26 | ED_ITS ---
Discharge Plan Prescriptions Prescriptions: No Action furosemide 40 mg tablet 40 mg PO DAILY carvedilol 12.5 mg tablet 12.5 mg PO BID Rx Instructions: must administer with a meal/food hydrocodone-acetaminophen 7.5-325 mg tablet 1 tab PO Q6H cholecalciferol (vitamin D3) 1,000 UNIT capsule 1,000 unit PO DAILY Referrals Follow up/Referrals: Hayder Wheeler MD [Primary Care Provider, Internal Medicine] - See instructions Print Language Print Language: Occitan Discharge ED Provider: María Elena Velasquez Adult HPI General Stated complaint: Sent to ER Per Summer Time Seen by Provider: 07/11/25 15:25 Related Data Home Medications ?Medication ?Instructions ?Recorded ?Confirmed cholecalciferol (vitamin D3) 25 1,000 unit PO DAILY [facility] pplement 10/17/20 08/13/22 mcg (1,000 unit) capsule carvedilol 12.5 mg tablet 12.5 mg PO BID 10/02/2107/18 furosemide 40 mg tablet 40 mg PO DAILY 10/02/2107/18 hydrocodone 7.5 mg-acetaminophen 1 tab PO Q6H 08/13/22 08/13/22 325 mg tablet Allergies Allergy/AdvReac Type Severity Reaction Status Date / Time Djytydg-RSE-TdQ Reductase Allergy Severe S-SWELLS-OR Verified 08/13/22 12:54 Inhibitor (Xklpnrr-Yyd-Rvv AL/THROAT Reductase Inhibitor) NSAIDS (Non-Steroidal Allergy Unknown ULCERS Verified 08/13/22 12:54 Anti-Inflamma [facility] Disclaimer: The information contained in this section may have been updated after the patient was seen, as this information can be updated by other users. Medical History (Updated 08/13/22 @ 13:40 by Dalia Briones APRN) Impacted cerumen of left ear Deviated nasal septum Surgical History (Updated 08/13/22 @ 13:14 by FREDI Frey) History of hip replacement History of bilateral knee replacement Social History Smoking Status: Never smoker alcohol intake: never substance use type: other current occupational status: retired Travel in the last 8 weeks?: None household members: children housing: house caffeine: No Other Medical History Have you received the Flu Vaccine for this season: No (refused) Have you received the Pneumonia Vaccine: No Medical Decision Making Medical Records Screening: Per USPSTF and CDC recommendations, given the prevalence of disease in our region, it is our hospital?s policy to screen for HIV and viral Hepatitis for all patients aged 18 and over and those with ongoing risk factors.
--- OUTSIDE RECORDS SUMMARY | 2025-07-11 15:35 | XMS_ITS | Patient Health Record ---
Author Organization [facility] Address [address] [place] [address] Care Team Providers Care Machine Inspector Name Role Phone Hayder Wheeler Primary Care Provider Migration, Provider Unavailable Unavailable Allergies Allergen (clinical drug ingredient) Drug/Non Drug Allergy documented on EMR Reaction Allergy Type Onset Date Status Non-steroidal anti-inflammatory agent (FN) NSAIDs Ulcer Drug Allergy Active Substance with 3-malhugt-5-methylgluta ryl-coenzyme A reductase inhibitor mechanism of action (substance) Statins Unknown Drug Allergy Active Results Component Value Reference Range Notes CBC AUTO W DIFF (Not yet rev [...] Note Unless otherwise noted testing performed at: [place] [address] Simone Ricks MD CLIA: [id number] THYROID STIMULATING HORMONE (Not yet reviewed by provider) Interpretation: Performing Lab: Notes/Report: THYROID STIMULATING HORMONE 2.28 0.34-4.80 mIU /mL Note Unless otherwise noted testing performed at: [place] [phone] Simone Ricks MD CLIA: [id number] THYROID PANEL (T3U/T4/FTI) ( Not yet reviewed by provider) Interpretation: Performing Lab: Notes/Report: T3 UPTAKE 43 30-40 % T4 TOTAL 1.8 4.8-13.9 ug/dL FREE THYROXINE INDEX (T7) 0.8 1.6-3.7 Note Unless otherwise noted testing performed at: [place] [address] Simone Ricks MD CLIA: [id number] PHOSPHOROUS (Not yet reviewe d by provider) Interpretation: Performing Lab: Notes/Report: PHOSPHORUS 3.8 2.5-4.9 mg/dL Note Unless otherwise noted testing performed at: [place] [address] Simone Ricks MD CLIA: [id number] MAGNESIUM (Not yet reviewed by provider) Interpretation: Performing Lab: Notes/Report: MAGNESIUM 2.3 1.8-2.4 mg/dL Note Unless otherwise noted testing performed at: [place] [address] Simone Ricks MD CLIA: [id number] COMP METABOLIC PANEL (Not ye t reviewed by provider) Interpretation: Performing Lab: Notes/Report: SODIUM 133 136-145 mmol/L POTASSIUM 5.5 3.5-5.1 mmol/L CHLORIDE 101 98-107 mmol/L CARBON DIOXIDE 21 21-32 mmol/L ANION GAP 11.0 GLUCOSE 104 70-110 mg/dL BLOOD UREA NITROGEN 45 7-18 mg/dL CREATININE 1.9 0.6-1.0 mg/dL BUN/CREATININE RATIO 23.7 9-21 ESTIMATED GLOM FILTRATION RATE 26 >60- mL/min GFR LIMITATION: The eGFR equation CKD-EPI 2020 [...] Note Unless otherwise noted testing performed at: [place] [id number] Simone Ricks MD CLIA: [id number] VITAMIN D,25-OH,TOTAL,IA (17 306) Reviewed date:01/26/2025 02:20:12 PM Interpretation: Performing Lab:CB, [facility] [address] [facility] Magdaleno [place]angley Notes/Report: NON-FASTING; NON-FASTING; NON-FASTING; NON-FASTING FASTING:NO FASTING: NO VITAMIN D,25-OH,TOTAL,IA 92 30-100 ng/mL Vitamin D Status 25-OH Vitamin D: Deficiency: <20 ng/mL Insufficiency: 20 - 29 ng/mL Optimal: > or = 30 ng/mL For 25-OH Vitamin D testing on patients on D2-supplementation and patients for whom quantitation of D2 and D3 fractions is required, the QuestAssureD(TM) 25-OH VIT D, (D2,D3), LC/MS/MS is recommended: order code 43411 (patients >2yrs). See Note 1 Note 1 For additional information, please refer to http://education.MightyHive/faq/BWI626 (This link is being provided for informational/ educational purposes only.) CBC (INCLUDES DIFF/PLT) (639 9) Reviewed date:01/26/2025 02:20:12 PM Interpretation: Performing Lab:DYLON, [facility], [place]zbSZ[address] Magdaleno Langley Notes/Report: NON-FASTING; NON-FASTING; NON-FASTING; NON-FASTING FASTING:NO FASTING: NO WHITE BLOOD CELL COUNT 7.4 3.8-10.8 Thousand/ uL RED BLOOD CELL COUNT 3.90 3.80-5.10 Million/uL HEMOGLOBIN 11.9 11.7-15.5 g/dL HEMATOCRIT 37.4 35.0-45.0 % MCV 95.9 80.0-100.0 fL MCH 30.5 27.0-33.0 pg MCHC 31.8 32.0-36.0 g/dL For adults, a slight decrease in the calculated MCHC value (in the range of 30 to 32 g/dL) is most likely not clinically significant; however, it should be interpreted with caution in correlation with other red cell parameters and the patient's clinical condition. RDW 13.4 11.0-15.0 % PLATELET COUNT 253 140-400 Thousand/uL MPV 11.1 7.5-12.5 fL ABSOLUTE NEUTROPHILS 5824 2425-3628 cells/uL ABSOLUTE LYMPHOCYTES 5523 870-2539 cells/uL ABSOLUTE MONOCYTES 466 200-950 cells/uL ABSOLUTE EOSINOPHILS 22 15-500 cells/uL ABSOLUTE BASOPHILS 22 0-200 cells/uL NEUTROPHILS 78.7 LYMPHOCYTES 14.4 MONOCYTES 6.3 EOSINOPHILS 0.3 BASOPHILS 0.3 CBC (INCLUDES DIFF/PLT) (769 9) Reviewed date:04/26/2025 02:14:41 PM Interpretation: Performing Lab:DYLON, [facility] [address], [place] Magdaleno Langley Notes/Report: NON-FASTING; NON-FASTING; NON-FASTING; NON-FASTING WHITE BLOOD CELL COUNT 7.8 3.8-10.8 Thousand/ uL RED BLOOD CELL COUNT 4.05 3.80-5.10 Million/uL HEMOGLOBIN 12.4 11.7-15.5 g/dL HEMATOCRIT 40.2 35.0-45.0 % MCV 99.3 80.0-100.0 fL MCH 30.6 27.0-33.0 pg MCHC 30.8 32.0-36.0 g/dL For adults, a slight decrease in the calculated MCHC value (in the range of 30 to 32 g/dL) is most likely not clinically significant; however, it should be interpreted with caution in correlation with other red cell parameters and the patient's clinical condition. RDW 14.1 11.0-15.0 % PLATELET COUNT 297 140-400 Thousand/uL MPV 10.4 7.5-12.5 fL ABSOLUTE NEUTROPHILS 6380 0942-6479 cells/uL ABSOLUTE LYMPHOCYTES 182 035-4647 cells/uL ABSOLUTE MONOCYTES 484 200-950 cells/uL ABSOLUTE EOSINOPHILS 8 15-500 cells/uL ABSOLUTE BASOPHILS 31 0-200 cells/uL NEUTROPHILS 81.8 LYMPHOCYTES 11.5 MONOCYTES 6.2 EOSINOPHILS 0.1 BASOPHILS 0.4 MAGNESIUM (622) Reviewed date:04/26/2025 02:14:41 PM Interpretation: Performing Lab:DYLON [facility], [place]adePdldMC[address] Magdaleno Langley Notes/Report: NON-FASTING; NON-FASTING; NON-FASTING; NON-FASTING MAGNESIUM 2.0 1.5-2.5 mg/dL COMPREHENSIVE METABOLIC PANE (04732) Reviewed date:04/26/2025 02:14:41 PM Interpretation: Performing Lab:DYLON [address], OxynadeZrqvEZ[address] Magdaleno Langley Notes/Report: NON-FASTING; NON-FASTING; NON-FASTING; NON-FASTING GLUCOSE 91 65-99 mg/dL Fasting reference interval UREA NITROGEN (BUN) 25 7-25 mg/dL CREATININE 1.26 0.60-0.95 mg/dL EGFR 42 > OR = 60 mL/min/1.73m2 BUN/CREATININE RATIO 20 6-22 (calc) SODIUM 139 135-146 mmol/L POTASSIUM 4.5 3.5-5.3 mmol/L CHLORIDE 99 98-110 mmol/L CARBON DIOXIDE 29 20-32 mmol/L CALCIUM 8.7 8.6-10.4 mg/dL PROTEIN, TOTAL 6.3 6.1-8.1 g/dL ALBUMIN 2.9 3.6-5.1 g/dL GLOBULIN 3.4 1.9-3.7 g/dL (calc) ALBUMIN/GLOBULIN RATIO 0.9 1.0-2.5 (calc) BILIRUBIN, TOTAL 0.7 0.2-1.2 mg/dL ALKALINE PHOSPHATASE 167 37-153 U/L AST 18 10-35 U/L ALT 9 6-29 U/L COMPREHENSIVE METABOLIC PANE L (68213) Reviewed date:01/26/2025 02:20:12 PM Interpretation: Performing Lab:DYLON [address] [employer], [place]mithPkjlLC[address] Magdaleno Langley Notes/Report: NON-FASTING; NON-FASTING; NON-FASTING; NON-FASTING FASTING:NO FASTING: NO GLUCOSE 94 65-139 mg/dL Non-fasting reference interval UREA NITROGEN (BUN) 21 7-25 mg/dL CREATININE 1.34 0.60-0.95 mg/dL EGFR 39 > OR = 60 mL/min/1.73m2 BUN/CREATININE RATIO 16 6-22 (calc) SODIUM 141 135-146 mmol/L POTASSIUM 5.0 3.5-5.3 mmol/L CHLORIDE 105 98-110 mmol/L CARBON DIOXIDE 26 20-32 mmol/L CALCIUM 8.7 8.6-10.4 mg/dL PROTEIN, TOTAL 6.5 6.1-8.1 g/dL ALBUMIN 3.4 3.6-5.1 g/dL GLOBULIN 3.1 1.9-3.7 g/dL (calc) ALBUMIN/GLOBULIN RATIO 1.1 1.0-2.5 (calc) BILIRUBIN, TOTAL 0.5 0.2-1.2 mg/dL ALKALINE PHOSPHATASE 123 37-153 U/L AST 18 10-35 U/L ALT 8 6-29 U/L LIPID PANEL, STANDARD (7600) Reviewed date:01/26/2025 02:20:12 PM Interpretation: Performing Lab:DYLON [address], Wer[place]mithKngeNK[address] Magdaleno Langley Notes/Report: NON-FASTING; NON-FASTING; NON-FASTING; NON-FASTING FASTING:NO FASTING: NO CHOLESTEROL, TOTAL 162 <200 mg/dL HDL CHOLESTEROL 48 > OR = 50 mg/dL TRIGLYCERIDES 145 <150 mg/dL LDL-CHOLESTEROL 89 Reference range: <100 Desirable range <100 mg/dL for primary prevention; <70 mg/dL for patients with CHD or diabetic patients with > or = 2 CHD risk factors. LDL-C is now calculated using the Andrés calculation, which is a validated novel method providing better accuracy than the Friedewald equation in the estimation of LDL-C. Blaise SS et al. MANSI. 2013;310(19): 9750-6331 (http://education.ITegris.[employer]/faq/TOG019) CHOL/HDLC RATIO 3.4 <5.0 (calc) NON HDL CHOLESTEROL 114 <130 mg/dL (calc) For patients with diabetes plus 1 major ASCVD risk factor, treating to a non-HDL-C goal of <100 mg/dL (LDL-C of <70 mg/dL) is considered a therapeutic option. THYROID PANEL WITH TSH (7444 ) Reviewed date:04/26/2025 02:14:41 PM Interpretation: Performing Lab:CB, [facility] [address] [facility] HospitalLoyKazoVD[address] Magdaleno Langley Notes/Report: NON-FASTING; NON-FASTING; NON-FASTING; NON-FASTING T3 UPTAKE 39 22-35 % T4 (THYROXINE), TOTAL 6.9 5.1-11.9 mcg/dL FREE T4 INDEX (T7) 2.7 1.4-3.8 TSH 1.60 0.40-4.50 mIU/L Medications Medication SIG (Take, Route, Frequency, Duration) Notes Start Date End Date Status Vitamin D3 50 MCG (1999) 1 tab(s) ora lly once a day Active Furosemide 40 MG 1 tab(s) orally once a day; Duration: 90 days 08/20/2021 Active HYDROcodone-Acetaminophen 7.5-325 MG 1 tab(s) orally every 6 hours; Duration: 30 days 05/11/2025 Active Eliquis 2.5 mg TAKE ONE TABLET BY M OUTH TWICE DAILY; Duration: 30 Active Spironolactone 25 mg TAKE ONE TABLET BY MOUTH TWICE DAILY; Duration: 30 Active Metoprolol Tartrate 25 MG 1/2 Orally Twi ce a day; Duration: 30 days Active Problems Problem Type SNOMED Code ICD Code Onset Dates Problem Status W/U Status Risk Notes Problem Hypertension (26550287) HTN (hypertension) (I10) Active confirmed Problem Vitamin D deficiency (98563995) Vitamin D deficiency (E55.9) Active confirmed Problem Hyperlipidemia (20963302) Hyperlipemia, idiopathic familial (E78.5) Active confirmed Problem History of anemia (918535839) History of anemia (Z86.2) Active confirmed Problem Atrial fibrillation (34030014) New onset atrial fibrillation (I48.91) Active confirmed Problem 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) Active confirmed Problem Osteoarthritis of left knee joint (258776078844309) Localized osteoarthritis of left knee (M17.12) Active confirmed Problem Artificial knee joint present (531951499776) 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) Active confirmed Problem Degenerative lumbar spinal stenosis (485188585) Degenerative lumbar spinal stenosis (M48.061) Active confirmed Problem Chronic kidney disease stage 3B (disorder) (980787637) Stage 3b chronic kidney disease (CKD) (N18.32) Active confirmed Vital Signs Heart Rate 72 /min 07/11/2025 Temperature 98.2 degrees Fahrenheit 07/11/2025 Blood pressure diastolic 60 mm Hg 07/11/2025 Height 4 ft 8 in in 07/11/2025 Blood pressure systolic 100 mm Hg 07/11/2025 Weight 103 lbs 07/11/2025 BMI 23.09 kg/m2 07/11/2025 Encounters Encounter Location Date Provider Diagnosis [place] [facility] [address] [place] [address] 02/18/2025 Provider Migration Postural kyphosis of lumbar region M40.05 [facility] [address] [address] 08/02/2024 Hayder Wheeler Stage 3b chronic kidney disease (CKD) N18.32 ; HTN (hypertension) I10 and Degenerative lumbar spinal stenosis M48.[address] [place] [address] 11/01/2024 Hayder Besson HTN (hypertension) I 10 and Postural kyphosis of lumbar region M40.05 [facility] [address] [address] 12/13/2024 Hayder Besson HTN (hypertension) I 10 and Postural kyphosis of lumbar region M40.05 [facility] [address] [address] 01/24/2025 Hayder Besson HTN (hypertension) I 10 ; Hyperlipemia, idiopathic familial E78.5 ; Vitamin D deficiency E55.9 and History of anemia Z86.2 [facility] [address] [address] 04/25/2025 Hayder Besson New onset atrial fibrillation I48.91 and Peripheral edema R60.0 [place] [facility] [address] [address] 05/02/2025 Hayder Besson New onset atrial fibrillation I48.91 ; Stage 3b chronic kidney disease (CKD) N18.32 ; Degenerative lumbar spinal stenosis M48.061 ; HTN (hypertension) I10 ; Localized osteoarthritis of left knee M17.12 and Routine medical exam Z00.00 [facility] [address] [address] 06/13/2025 Hayder Besson Edema, unspecified R60.9 and New onset atrial fibrillation I48.91 [place] [facility] [address] [address] 07/11/2025 Hayder Besson Dizziness and giddiness R42 ; Syncope and collapse R55 ; Orthostatic hypotension I95.1 and New onset atrial fibrillation I48.91 [place] [facility] [address] [address] 07/14/2024 Hayder Besson Spinal stenosis of lumbar region without neurogenic claudication M48.061 [place] [facility] [address] [address] 08/09/2024 Hayder Besson Spinal stenosis of lumbar region without neurogenic claudication M48.061 [place] [facility] [address] [address] 09/13/2024 Hayder Besson Spinal stenosis of lumbar region without neurogenic claudication M48.061 [place] [facility] [address] [address] 10/11/2024 Hayder Besson Spinal stenosis of lumbar region without neurogenic claudication M48.061 [facility] [address] [place] [address] 11/10/2024 Hayder Besson Peripheral edema R60 .9 and Spinal stenosis of lumbar region without neurogenic claudication M48.061 [facility] [address] [place] [address] 11/29/2024 Hayder Besson Stage 3b chronic kidney disease (CKD) N18.32 [facility] [address] [place] [address] 01/10/2025 Hayder Besson Postural kyphosis of lumbar region M40.05 [facility] [address] [place] [address] 01/26/2025 Hayder Besson [facility] [address] [place] [address] 02/07/2025 Hayder Besson Postural kyphosis of lumbar region M40.05 [facility] [address] [place] [address] 03/14/2025 Hayder Besson Postural kyphosis of lumbar region M40.05 [facility] [address] [place] [address] 04/11/2025 Hayder Besson Postural kyphosis of lumbar region M40.05 [facility] [address] [place] [address] 04/25/2025 Hayder Besson [facility] [address] [place] [address] 05/11/2025 Hayder Besson Postural kyphosis of lumbar region M40.05 [facility] [address] [place] [address] 06/13/2025 Hayder Besson Postural kyphosis of lumbar region M40.05 Assessments Encounter Date Diagnosis (ICD Code) Assessment Notes Treatment Notes Treatment Clinical Notes Section Notes 08/02/2024 Stage 3b chronic kidney disease (CKD) (ICD-10 - N18.32) Farxiga was unaffordable for patient. Took lisinopril 2.5 which made her dizzy. Instructed patient to do 1/2 tablet. 08/09/2024 Spinal stenosis of lumbar region without neurogenic claudication (ICD-10 - M48.061) 11/01/2024 HTN (hypertension) (ICD-10 - I10) Will decrease carvedilol down to 6.25 twice daily. Short-term follow-up in 6 weeks to make sure we do not need to cut back further. She will continue to monitor blood pressure at home 11/01/2024 Postural kyphosis of lumbar region (ICD-10 - M40.05) Patient has been compliant with our office and [place] regulations r.e. meds. No concerns on my part about diversion or misuse. Labs and Tacos reports reviewed and are appropriate. 11/29/2024 Stage 3b chronic kidney disease (CKD) (ICD-10 - N18.32) 01/10/2025 Postural kyphosis of lumbar region (ICD-10 - M40.05) 01/24/2025 HTN (hypertension) (ICD-10 - I10) Will stop lisinopril today given persistently low blood pressure. Encouraged to continue to check her blood pressure at home. Will check routine labs today. 07/14/2024 Spinal stenosis of lumbar region without neurogenic claudication (ICD-10 - M48.061) 08/02/2024 HTN (hypertension) (ICD-10 - I10) Patient's blood pressure remains controlled and patient reports no side effects. Informed patient that she can take Lasix PRN if she notices swelling. Otherwise no changes at this time. 02/07/2025 Postural kyphosis of lumbar region (ICD-10 - M40.05) 03/14/2025 Postural kyphosis of lumbar region (ICD-10 - M40.05) 04/11/2025 Postural kyphosis of lumbar region (ICD-10 - M40.05) 04/25/2025 New onset atrial fibrillation (ICD-10 - I48.91) Patient is in atrial fibrillation on exam criteria as well as on EKG criteria. Is technically in rapid response but blood pressure is holding still and she has no issues with dyspnea or chest pain. She does not want to go to the hospital. Decision making today included discussion about hospital admission which we will try to avert by short-term follow-up and labs today. Discussed that she might need another beta-raul. Will trial metoprolol to see if this will help her rate without cutting her blood pressure down too much that her carvedilol did. Add spironolactone for edema issues. Greater than 45 minutes [id number] patient care with interpreting EKG, labs, reevaluation after EKG. 04/25/2025 Peripheral edema (ICD-10 - R60.0) Add spironolactone, follow-up 1 week to assess rate control, fluid status. Hospital admission considered. Patient and daughter declined, wished to trial outpatient workup. Long discussion about DOAC initiation, initiate low-dose based on her age. Has a high fall risk but no recent falls 01/24/2025 Hyperlipemia, idiopathic familial (ICD-10 - E78.5) 05/02/2025 New onset atrial fibrillation (ICD-10 - I48.91) Overall doing very nicely on Eliquis and rate control with metoprolol. Blood pressure is not as low as previously on carvedilol. Rates in the 80s. Patient feels much better. 05/02/2025 Stage 3b chronic kidney disease (CKD) (ICD-10 - N18.32) Kidney disease been stable, labs done at last visit. No changes in plan. I will see her back in 2 months and redo labs at that point 05/11/2025 Postural kyphosis of lumbar region (ICD-10 - M40.05) 06/13/2025 Postural kyphosis of lumbar region (ICD-10 - M40.05) 07/11/2025 Dizziness and giddiness (ICD-10 - R42) 07/11/2025 Syncope and collapse (ICD-10 - R55) 06/13/2025 Edema, unspecified (ICD-10 - R60.9) - [...] decrease metoprolol from 25mg to 12.5mg BID 02/18/2025 Postural kyphosis of lumbar region (ICD-10 - M40.05) 11/10/2024 Peripheral edema (ICD-10 - R60.9) 10/11/2024 Spinal stenosis of lumbar region without neurogenic claudication (ICD-10 - M48.061) 12/13/2024 HTN (hypertension) (ICD-10 - I10) Chronic. BP in office was 105/60. We have been slowly decreasing dose of carvedilol; however, her blood pressure remains lower than I would like. I instructed the patient to discontinue the carvedilol. She was agreeable. Patient will remain on lisinopril. 12/13/2024 Postural kyphosis of lumbar region (ICD-10 - M40.05) Patient reports pain is currently well-controlled. Continue current regimen. Patient has been compliant with our office and [place] regulations r.e. meds. No concerns on my part about diversion or misuse. Labs and Tacos reports reviewed and are appropriate. 09/13/2024 Spinal stenosis of lumbar region without neurogenic claudication (ICD-10 - M48.061) 11/10/2024 Spinal stenosis of lumbar region without neurogenic claudication (ICD-10 - M48.061) 05/02/2025 Degenerative lumbar spinal stenosis (ICD-10 - M48.061) Patient has been compliant with our office and [place] regulations r.e. meds. No concerns on my part about diversion or misuse. Labs and Tacos reports reviewed and are appropriate. 07/11/2025 Orthostatic hypotension (ICD-10 - I95.1) 08/02/2024 Degenerative lumbar spinal stenosis (ICD-10 - M48.061) Patient reports her pain is controlled with the medication and is ok with continuing current plan. No medication changes at this time. 01/24/2025 Vitamin D deficiency (ICD-10 - E55.9) 05/02/2025 HTN (hypertension) (ICD-10 - I10) See notes above blood pressure 01/24/2025 History of anemia (ICD-10 - Z86.2) 07/11/2025 New onset atrial fibrillation (ICD-10 - I48.91) 05/02/2025 Localized osteoarthritis of left knee (ICD-10 - M17.12) Uses walker for her combination of knee arthritis and spinal stenosis. Adequate pain control with current regimen 05/02/2025 Routine medical exam (ICD-10 - Z00.00) HRA reviewed, 3/3 word recall. Safe home environment, no recent falls, uses walker as fall prevention. Lifelong non-smoker. Declines flu shots or other vaccinations. Otherwise aged out of cancer screening. Daughter is healthcare surrogate 12/13/2024 Other Follow up in 6- 8 weeks for blood check and Medicare AWV 07/11/2025 Other Patient signs and symptoms consistent [...] communicated findings directly with ER physician at [facility], will fax labs. Multiple complexities with patient. Plan Of Treatment Pending Test Test Name Order Date X-Lipid Profile 11/10/2007 N-CMP 05/03/2007 CT Scan : Hip, Left 09/11/2015 C-CBC 06/16/2014 C-CMP 06/16/2014 C-LIPID PANEL 06/16/2014 C-VITAMIN D, 1,25-DIHYDROXY 10/13/2011 C-VITAMIN D, 25-HYDROXY 06/16/2014 CT Scan : Hip, Right 09/11/2015 VENIPUNCT, ROUTINE* 10/13/2016 VENIPUNCT, ROUTINE* 01/27/2017 COMPREHENSIVE METABOLIC PANEL (REFL) (37 015) 02/24/2023 COMP METABOLIC PANEL 07/11/2025 MAGNESIUM 07/11/2025 PHOSPHOROUS 07/11/2025 THYROID PANEL (T3U/T4/FTI) 07/11/2025 THYROID STIMULATING HORMONE 07/11/2025 CBC AUTO W DIFF 07/11/2025 Insurance Providers Payer Name Payer Address Payer Phone Subscriber Number Group Number Insured Name Patient Relationship to Insured Coverage Start Date Coverage End Date [place] [address] [place] [address] [id number] Susan Dudley Self - patient is the insured [employer] CLAIMS OFFICE [address] [address] [place] [address] [phone] [id number] Susan Dudley Self - patient is the insured [id number] [address] [place] [address] ACL Susan Dudley Self - patient is the insured Medications Administered Medication Instructions Date of Administration Dosage Notes Bumetanide/Bumex 06/09/2016 4 mL 2ml left gluteus, 2ml right gluteus Medical (General) History Medical History History ICD Code Hyperlipidemia - intolerant to statins Hypertension Chronic back pain -spinal stenosis Post-menopausal OSTEOARTHRO NOS-OTH SITE Vitamin D deficiency NOS Right hip replacement Gastric ulcer with acute blo od loss anemia 05/30 - EGD 04/02 with reactive gastropathy - no ulcer Status post left hip replacement Z96.642 Status post left hip replacement Surgical History Surgery Date(Month/Year) right knee replacement right hip replacemenet EGD 05/31, 08/31, 03/2018 left knee replacement Hospitalization History Reason Date(Month/Year) Gastric ulcer with anemia requiring leung sfusions 05/2016 above surgery
--- OUTSIDE RECORDS SUMMARY | 2025-07-11 15:35 | XMS_ITS | Clinical Summary ---
Author Organization [employer] ([place], [place], [place], [place]) Address [address] [place] [address] Care Team Providers Care Decator Operator Name Role Phone Unavailable Primary Care Provider Unavailabl e Social History Tobacco Use Types Packs/Day Years Used Date Smoking Tobacco: Never Assessed Comments Unknown Sex and Gender Information Value Date Recorded Sex Assigned at Female 05/13/2022 8:44 PM CDT Legal Sex Female 8:44 PM CDT Gender Identity Female 05/13/2022 8:44 PM CDT Sexual Orientation Not on file Plan of Treatment Not on file
--- OUTSIDE RECORDS SUMMARY | 2025-07-11 15:35 | XMS_ITS | Referral Summary ---
Author Organization [employer] ([place], [place], [place], [place]) Address [address] [place] [address] Care Team Providers Care Java Websphere Developer Name Role Phone Unavailable Primary Care Provider [...]
--- OUTSIDE RECORDS SUMMARY | 2025-07-11 15:36 | XMS_ITS | Encounter Summary ---
Author Organization [employer] ([place], [place], [place], [place]) Address [address] [place] [address] Care Team Providers Care Buggy Loader Name Role Phone Unavailable Primary Care Provider Unavailabl e Encounter Details Date Type Department Care Team (Late st Contact Info) Description 08/17/2020 Transcribed Document [facility] Family Medicine [facility] [place] [address] ProviderKennedi MD [address] [place], [place] [id number] Social History Tobacco Use Types Packs/Day Years Used Date Smoking Tobacco: Never Assessed Comments Unknown Sex and Gender Information Value Date Recorded Sex Assigned at Female 05/13/2022 8:44 PM CDT Legal Sex Female 8:44 PM CDT Gender Identity Female 05/13/2022 8:44 PM CDT Sexual Orientation Not on file documented as of this encounter Miscellaneous Notes * Cerner Conversion Note - Historical ProviderMD - 08/17/2020 1:27 PM CDT Patient: SUSAN MCDERMOTT Age: 79 Years Sex: Female : 1940 History of Present Illness This 79 year old female patient presents for follow up for left ankle ulceration. She is accompanied by family. She states that she had been seeing wound care at [facility] for this issue previously. She states that she has had this wound for several weeks. She denies any trauma to the ankle. She states that the wound just started happening. She states that she has a history of swelling and lymphedema. She states that she has been wearing the compression stockings as instructed and that he leg has looked healed for the past week or so. She has noticed no drainage or issues. NO other complaints. Review of Systems AO x 3 and in no acute distress Denies nausea, vomiting, fever or chills. Physical Exam Vascular: DP and PT pulses palpable +1/4 to bilateral feet. Skin temperature warm to cool from proximal to distal to bilateral legs. Capillary refill time less than 5 seconds to the dorsal foot of bilateral feet. Neurological: Protective sensation noted to be grossly intact to bilateral feet. Light touch sensation is noted to be intact to the foot bilaterally. Proprioception noted to be intact to the medial malleolus of bilateral legs. Dermatological: Previous ulceration appears healed. The wound base is epithelialized and dry. No erythema noted. No malodor noted. No drainage noted. Mild diffuse edema noted to bilateral legs. Venous stasis changes are noted to bilateral legs with varicosities noted. Musculoskeletal: No pain with calf compression to bilateral legs. All lower extremity muscle groups rate +4/5 in strength bilaterally. Ankle joint range of motion is 10 degrees to bilateral ankles. Assessment/Plan 1.) Xerosis of skin 2.) Venous stasis 3.) Generalized edema 4.) Atherosclerosis of bilateral legs Plan: 1.) Patient was examined and evaluated. 2.) Discussed and reviewed treatment plan in detail. 3.) I discussed the overall appearance of her ankle and her leg. I discussed that she does appear healed today. 4.) I discussed the improvement since the last office visit and the continued need to control swelling. I discussed the impact of her swelling on her overall healing. She understands this. 5.) She will return for her PCP for clearance for joint replacement surgery - she will be discharged from the wound care center at this time. VTE Prophylaxis - Medical No VTE Prophylaxis Orders. Provider Information Primary Care Physician - JONH SHANE (MD [facility] Attending Physician - NISREEN KOHLER DPM-SUR Admitting Physician - NISREEN KOHLER DPM-SUR Referring Physician - NISREEN KOHLER DPM-SUR Problem List/Past Medical History Ongoing No qualifying data Historical No qualifying data Medications Inpatient No active inpatient medications Home No active home medications Allergies No active allergies Social History Denies use of alcohol, tobacco and drugs. Family History Hypertension documented in this encounter Plan of Treatment Not on file documented as of this encounter Visit Diagnoses Not on filedocumented in this encounter
--- NOTE | 2025-07-11 16:07 | CT_ITS ---
PROCEDURE INFORMATION: Exam: CTA Abdomen and Pelvis With Contrast Exam date and time: 07/11/2025 4:53 PM Age: 84 years old Clinical indication: Other: HX of pud, anemia, weakness TECHNIQUE: Imaging protocol: Computed tomographic angiography of the abdomen and pelvis with contrast. Exam focused on the arteries. 3D rendering (Not supervised by radiologist): MIP and/or 3D reconstructed images were created by the technologist. Radiation optimization: All CT scans at this facility use at least one of these dose optimization techniques: automated exposure control; mA and/or kV adjustment per patient size (includes targeted exams where dose is matched to clinical indication); or iterative reconstruction. Contrast material: ISO 370; Contrast volume: 80 ml; Contrast route: INTRAVENOUS (IV); COMPARISON: US ARTERIAL LOWER EXT REST 03/20/2020 2:52 PM FINDINGS: Lungs: Mild linear opacities in the posteroinferior right lower lobe suggest parenchymal scarring or atelectasis. There is a trace right pleural effusion. Pleural spaces: There are no pleural effusions. Heart: The visualized portions of the heart are unremarkable. There is a trace amount of pericardial fluid. There is calcification of the aortic valve annulus. Coronary arteries: There is moderate atherosclerotic calcification of the coronary arteries. Aorta: The abdominal aorta is tortuous and unfolded. The aorta and iliac arteries demonstrate moderate atherosclerotic calcification. Celiac trunk and mesenteric arteries: No occlusion or significant stenosis. Renal arteries: No occlusion or significant stenosis. Right iliac arteries: No occlusion or significant stenosis. Left iliac arteries: No occlusion or significant stenosis. Veins: There are a few benign phleboliths in the pelvis. Liver: There is diffuse decrease in hepatic/liver parenchymal density consistent with fatty infiltration. Gallbladder and biliary ducts: Mild layering gallstones or sludge are present. The Gallbladder is mildly prominent. No pericholecystic fluid. There is dilatation of the common bile duct measuring approximately 9.8 mm. Pancreas: There is pancreatic ductal dilatation measuring approximately 5 mm in maximum dimension. Spleen: The spleen demonstrates punctate calcifications, consistent with remote granulomatous organism exposure. Adrenal glands: There is mild nondiscrete hypodense enlargement of the left adrenal gland with internal Hounsfield units measuring 78. The right adrenal gland is difficult to visualized but as seen appears within range of normal. Kidneys and ureters: There is a large, heterogeneous, hyperenhancing, macrolobular complex cystic and solid mass occupying the superior right kidney worrisome for malignancy. There are central multi-cystic components and punctate calcifications also present. The left renal vein appears patent. No adjacent pathologic adenopathy. There is renal cortical thinning involving the residual right kidney consistent with senescent change. The left kidney appears atrophic with diffuse renal cortical thinning measuring approximately 7 x 3.9 cm.There are a few small left renal hypodensities which are too small to accurately characterize. Statistically, these may be cysts. No follow-up imaging required unless clinical parameters dictate otherwise. Stomach and bowel: Apparent mild proximal gastric mural thickening could be on the basis of incomplete distension but cannot exclude gastritis or other inflammatory or infiltrative process. Correlate clinically. There is a periampullary duodenal diverticulum measuring approximately 27 mm, with an air-fluid level. No evidence of diverticulitis. There is an additional diverticulum slightly more distally measuring approximately 4.3 x 4.2 cm. There is a 3rd diverticulum more distally measuring approximately 4.9 cm. Lack of gastrointestinal contrast limits evaluation of bowel. Moderate diverticulosis is present in the distal colon. There is no evidence of colitis/diverticulitis. Unopacified loops of small bowel are otherwise within range of normal. No foci of increased attenuation are seen on the arterial phase of imaging to indicate acute GI bleeding. Appendix: No evidence of appendicitis. Intraperitoneal space: No evidence of intraperitoneal free air. No significant free fluid. Lymph nodes: No enlarged lymph nodes. Urinary bladder: There is mild nonspecific bladder wall thickening. Reproductive: The uterus is small consistent with the patient's age, but not optimally visualized due to beam hardening artifact from hip arthroplasty. No adnexal masses, although evaluation is limited due to beam hardening artifact.. 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 Beam hardening artifact limits evaluation of adjacent structures. There is an S shaped thoracolumbar scoliosis. The thoracolumbar spine demonstrates moderate degenerative changes at multiple levels. There are mild degenerative changes of the symphyseal pubic joint. There are moderate degenerative changes of the sacroiliac joints. Mild osteoarthritic degenerative changes involve the left hip joint. There is mild diffuse osteopenia. There are tnioyhgy-[id number] compressive changes involving the L1 vertebral body, most prominent anteriorly. There is retropulsion of the posterosuperior and inferior components to the vertebral body resulting in moderate central canal stenosis. There is also grade 1 retrolisthesis of L1 on L2. Moderate compressive changes involve all 3 with concavity to the superior endplate. There is grade 1 anterior spondylolisthesis of L5 on S1. Minor compressive changes are also present involving T11 with concavity to the superior endplate. Advanced facet degenerative arthropathy is present. Multilevel central canal stenosis is present, also present at T11-12 due to posterior bar/disc, T12-L1, L2-L3, L3-L4, and L4-L5. There are variable levels of neural foraminal narrowing bilaterally. There is prominent accentuation of thoracolumbar kyphosis. Soft tissues: Unremarkable. IMPRESSION: 1. Large, heterogeneous, hyperenhancing, macrolobular complex cystic and solid mass occupying the superior right kidney worrisome for malignancy. 2. Cholelithiasis with mild prominence of the gallbladder, as well as common bile duct dilatation measuring approximately 9.8 mm. Recommend clinical correlation and right upper quadrant ultrasound. 3. Diffuse pancreatic ductal dilatation. 4. Several duodenal diverticula without evidence of diverticulitis. 5. Mild bladder wall thickening most likely reflecting either incomplete distention or cystitis. Correlate clinically. 6. Apparent mild proximal gastric mural thickening could be on the basis of incomplete distension but cannot exclude gastritis or other inflammatory or infiltrative process. Correlate clinically. 7. Itkxjypp-vu-qijahp compressive changes involving the L1 vertebral body, most prominent anteriorly, with retropulsion of the posterosuperior and inferior components to the vertebral body resulting in moderate central canal stenosis. The overall appearance suggests chronic process but recommend clinical correlation. Several additional compression fractures are also age-indeterminate and require clinical correlation. 8. Mild nondiscrete enlargement of the left adrenal gland of uncertain clinical significance. Correlate clinically. Recommend comparison with any prior studies, if available, to evaluate for stability. Definitive diagnosis of this adrenal lesion would require a dedicated adrenal MRI or CT study. THIS REPORT CONTAINS FINDINGS THAT MAY BE CRITICAL TO PATIENT CARE. The findings were verbally communicated via telephone conference with Gibran Sosa at 5:44 PM EDT on 07/11/2025. The findings were acknowledged and understood.
--- NOTE | 2025-07-11 16:09 | ED_ITS ---
<Statement entered by María Elena Velasquez DO - 07/11/25 22:53> I was consulted by the PALMER, and we discussed the complexity of problems being addressed. I approve the treatment and management plan for this patient's care in the emergency department, thus performing a substantial portion of the medical decision making. María Elena Velasquez DO Discharge Plan Disposition Patient Disposition: Admitted Condition: Fair Clinical Impressions Clinical Impression: GI (gastrointestinal bleed) Discharge ED Provider: María Elena Velasquez General Adult HPI <ALMA Carrillo - Last Filed: 07/11/25 19:10> General Chief complaint: Weakness Stated complaint: Sent to ER Per Summer Time Seen by Provider: 07/11/25 15:25 Mode of Arrival: Wheelchair Source of Information: Patient and Relative Description of Symptoms (Recalled from ER Triage Doc. by RN): Patient presents to ED per Dr. Solares's request due to HGB of 8.3 from labs today. Family reports patient was put on Eliquis a couple months prior due to AFib. Patient states she get tired easily and c/o generalized weakness and decreased PO intake. Denies black/bloody stool. Notes she tried to sit down in the car at Dr. Solares's office and slid down to the ground. Patient denies hitting head, denies any injury at all. History of Present Illness HPI narrative: 84-year-old female presents the emergency department at the request of her PCPs office, concern for a decreased in hemoglobin, hemoglobin was 8.3 on today's labs, recent started on Eliquis around 3 to 4 months ago for newly diagnosed atrial fibrillation, patient and patient's family member at the bedside endorses generalized weakness fatigue, decreased p.o. intake for the last several days, denies any hematuria melena hematochezia or hematemesis, admits to subjective fever and chills, denies any chest pain, shortness of breath, abdominal pain no nausea no vomiting no constipation no diarrhea admits to decreased urinary frequency,/urinary retention, patient is a non-smoker denies any alcohol or drug use, initial triage vitals are unremarkable, however patient's family member is concerned about episodes of low blood pressure at home, ongoing for the last several days, other past medical history consistent with hypertension, GERD, previous history of what sounds like PUD, patient describes it as a bleeding ulcer data deficient and remotely around 6 years ago, previous endoscopy/colonoscopies all clear. Please note that above description of symptoms, in this electronic medical record under categorization of recalled from ER triage doctor by RN are reflective of an initial nursing assessment, however, is not reflective of my full history and physical exam that was personally taken and clarified. Consequentially, this preceding description of symptoms, which may include the patient's categorized chief complaint in the EMR, do not reflect my personal clinical impression, and the ultimate description of history of present illness and patient stated complaints should be deferred to this section of the note. Unless stated otherwise or congruent with this section of the note, additional signs, symptoms, or incongruence should be interpreted as inaccurate with my clinical impression. Onset (ago): day(s) Related Data Home Medications ?Medication ?Instructions ?Recorded ?Confirmed cholecalciferol (vitamin D3) 25 1,000 unit PO DAILY Dumas pplement 10/17/20 08/13/22 mcg (1,000 unit) capsule carvedilol 12.5 mg tablet 12.5 mg PO BID 10/02/2107/18 furosemide 40 mg tablet 40 mg PO DAILY 10/02/2107/18 hydrocodone 7.5 mg-acetaminophen 1 tab PO Q6H 08/13/22 08/13/22 325 mg tablet Allergies Allergy/AdvReac Type Severity Reaction Status Date / Time [id number] Reductase Allergy Severe S-SWELLS-OR Verified 08/13/22 12:54 Inhibitor (Haqehnt-Xft-Wmq AL/THROAT Reductase Inhibitor) NSAIDS (Non-Steroidal Allergy Unknown ULCERS Verified 08/13/22 12:54 Anti-Inflamma [facility] <ALMA Carrillo - Last Filed: 07/11/25 19:10> [facility] Disclaimer: The information contained in this section may have been updated after the patient was seen, as this information can be updated by other users. 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 Family History (Updated 07/11/25 @ 22:28 by Marielle Palacios RN) Other No significant family history Social History (Updated 07/11/25 @ 22:28 by Marielle Palacios RN) Smoking Status: Never smoker alcohol intake: never substance use type: other current occupational status: retired Travel in the last 8 weeks?: None household members: children housing: house caffeine: No Have you lived/traveled outside [place] in past 30 days?: No Contact w/someone who lives/traveled outside US past 30 days?: No Exposure to someone with infectious disease in past 14 days?: No Do you have a fever (greater than 100.4 F or 38 C)?: No Have you tested positive for COVID-19?: No Exposed to someone with COVID-19 in past 14 days?: No Do you have a sore throat?: No Do you have a cough?: No Do you have any weakness?: No Do you have any diarrhea?: No Are you experiencing any unusual bleeding?: No Do you have any muscle aches/pain?: No Do you have any abdominal pain?: No Are you experiencing loss of taste or smell?: No Other Medical History Have you received the Flu Vaccine for this season: No (refused) Have you received the Pneumonia Vaccine: No <ALMA Carrillo - Last Filed: 07/11/25 19:10> ROS Obtained: Yes All systems reviewed & no additional complaints except as documented Physical Exam <ALMA Carrillo - Last Filed: 07/11/25 19:10> General General appearance: alert and in no apparent distress Comment: Somewhat pale appearing female, presbycusses on the right, Head Head exam: atraumatic and normocephalic Eye Eye exam: Present PERRL and EOMI ENT ENT exam: Present mucous membranes moist Neck Neck exam: Present normal inspection Chest Chest inspection: Present normal inspection and symmetric chest wall rise Respiratory Respiratory exam: Present normal lung sounds bilaterally; Absent respiratory distress Cardiovascular Cardiovascular exam: Present regular rate and normal rhythm Abdominal Exam Abdominal exam: Present soft; Absent tenderness Extremities Exam Extremities exam: Present normal inspection Neurological Exam Neurological exam: Present alert, oriented X3 and other (Generalized global weakness noted, no gross focal neurological deficit noted moves extremities to command,) Psychiatric Psychiatric exam: Present normal affect Skin Skin exam: Present warm and dry Medical Decision Making <ALMA Carrillo - Last Filed: 07/11/25 19:10> Medical Records Medical records reviewed: Yes I reviewed the patient's medical records. Screening: Per USPSTF and CDC recommendations, given the prevalence of disease in our region, it is our hospital?s policy to screen for HIV and viral Hepatitis for all patients aged 18 and over and those with ongoing risk factors. Tacos Inquiry Pt receiving controlled substance: No Tacos was queried for this patient: No Vital Signs: 07/11/25 15:30 07/11/25 15:32 07/11/25 16:00 Temperature 98.1 F Temperature Source Axillary Pulse Rate 80 82 Pulse Rate [Left] 83 Respiratory Rate 14 16 16 Blood Pressure 106/62 L 106/63 L Blood Pressure [Right Arm] 107/65 L Blood Pressure Mean 81 71 Blood Pressure Mean [Right Arm] 79 Blood Pressure Source Blood Pressure Source [Right Arm] Automatic Cuff Blood Pressure Position Blood Pressure Position [Right Arm] Sitting 02 Sat by Pulse Oximetry 99 100 100 Oxygen Delivery Method Room Air Room Air Room Air 07/11/25 16:30 07/11/25 17:00 07/11/25 17:30 Temperature Temperature Source Pulse Rate 83 67 85 Pulse Rate [Left] Respiratory Rate 19 17 Blood Pressure 114/73 94/63 L 105/58 L Blood Pressure [Right Arm] Blood Pressure Mean 86 Blood Pressure Mean [Right Arm] Blood Pressure Source Blood Pressure Source [Right Arm] Blood Pressure Position Blood Pressure Position [Right Arm] 02 Sat by Pulse Oximetry 100 100 98 Oxygen Delivery Method Room Air 07/11/25 18:00 07/11/25 18:30 07/11/25 19:00 Temperature Temperature Source Pulse Rate 93 H 87 89 Pulse Rate [Left] Respiratory Rate 14 15 16 Blood Pressure 118/71 111/60 Blood Pressure [Right Arm] Blood Pressure Mean Blood Pressure Mean [Right Arm] Blood Pressure Source Blood Pressure Source [Right Arm] Blood Pressure Position Blood Pressure Position [Right Arm] 02 Sat by Pulse Oximetry 95 100 99 Oxygen Delivery Method 07/11/25 19:00 07/11/25 19:15 07/11/25 19:30 Temperature Temperature Source Pulse Rate 95 H 95 H Pulse Rate [Left] Respiratory Rate 12 12 Blood Pressure 105/60 L Blood Pressure [Right Arm] Blood Pressure Mean 76 Blood Pressure Mean [Right Arm] Blood Pressure Source Blood Pressure Source [Right Arm] Blood Pressure Position Blood Pressure Position [Right Arm] 02 Sat by Pulse Oximetry 99 100 Oxygen Delivery Method 07/11/25 19:30 07/11/25 19:58 Temperature 98.1 F Temperature Source Pulse Rate 95 H Pulse Rate [Left] Respiratory Rate 12 Blood Pressure 102/49 L 102/49 L Blood Pressure [Right Arm] Blood Pressure Mean 67 Blood Pressure Mean [Right Arm] Blood Pressure Source Automatic Cuff Blood Pressure Source [Right Arm] Blood Pressure Position Sitting Blood Pressure Position [Right Arm] 02 Sat by Pulse Oximetry Oxygen Delivery Method Room Air Lab Data Lab results reviewed: Yes I reviewed the patient's lab results. Lab Results 07/11/25 15:47: WBC 7.5, RBC 2.77 L, Hgb 8.3 L, Hct 26.9 L, MCV 97.1, MCH 30.0, MCHC 30.9 L, RDW 14.2, Plt Count 331, MPV 9.6, Neut % (Auto) 86.3 H, Lymph % (Auto) 6.1 L, Cook % (Auto) 7.0, Eos % (Auto) 0.0 L, Baso % (Auto) 0.1, Neut # (Auto) 6.5, Lymph # (Auto) 0.5 L, Cook # (Auto) 0.5, Eos # (Auto) 0.0, Baso # (Auto) 0.0, Total Counted 100, Neutrophils % (Manual) 87 H, Lymphocytes % (Manual) 8 L, Monocytes % (Manual) 5, Platelet Estimate Normal, RBC Morphology Normal, PT 12.9 H, INR 1.18 H, Sodium 133 L, Potassium 5.8 H, Chloride 108 H, C arbon Dioxide 18 L, Anion Gap 12.8, BUN 43 H, Creatinine 1.80 H, Estimated Creat Clear 17, Estimated GFR 27 L, Est GFR ( Amer) 32 L, Glucose 89, Calcium 8.2 L, Total Bilirubin 0.6, AST 27, ALT 15, Alkaline Phosphatase 157 H, Total Protein 5.7 L, Albumin 2.6 L, Globulin 3.1, Albumin/Globulin Ratio 0.8 L, Lipase 159 07/11/25 15:55: Blood Type A Positive, Antibody Screen Negative 07/11/25 17:21: Stool Occult Blood Positive A 07/11/25 18:12: Urine Color Yellow, Urine Appearance Clear, Urine pH 5.5, Ur Specific Sayre 1.010, Urine Protein Negative, Urine Glucose (UA) Negative, Urine Ketones Negative, Urine Blood 1+ A, Urine Nitrate Negative, Urine Bilirubin Negative, Urine Urobilinogen 0.2, Ur Leukocyte Esterase 1+ A, Urine RBC Occasional, Urine WBC 20-50, Ur Squamous Epith Cells 10-20, Urine Bacteria 4+ 07/11/25 20:26 07/11/25 15:47 Orders (Tests/Meds): ED MEDICATIONS Generic Name Dose Route Start Last Admin Trade Name Micheal PRN Reason Stop Dose Admin Acetaminophen 650 mg 07/11/25 19:38 Acetaminophen 325mg Tab PO 08/10/25 19:37 Q4HP PRN Fever or Mild Pain (1-3) Lactated Ringer's 1,000 mls @ 100 mls/hr 07/11/25 19:45 07/11/25 20:33 Lactated Ringer's 1000 Ml Bag IV 08/10/25 19:44 100 mls/hr .Q10H ELLIE Administration Ondansetron HCl 4 mg 07/11/25 19:38 Ondansetron 4mg/2ml Vial IV 08/10/25 19:37 Q8HP PRN Nausea Pantoprazole Sodium 40 mg 07/12/25 09:00 Pantoprazole 40mg Vial IV 08/11/25 08:59 BID ELLIE Sodium Chloride 10 ml 07/11/25 19:41 Sodium Chloride 0.9% 10ml Vial IV 08/10/25 19:40 NEEDED PRN dilute protonix Discontinued Medications Generic Name Dose Route Start Last Admin Trade Name Micheal PRN Reason Stop Dose Admin Sodium Chloride 1,000 mls @ 999 mls/hr 07/11/25 16:37 07/11/25 18:24 Sod Chlor 0.9% 1000ml Bag IV 07/11/25 17:37 Infused .Q1H1M ONE Infusion Calcium Gluconate/Sodium Chloride 2 gm in 100 mls @ 50 mls/hr 07/11/25 16:38 07/11/25 19:03 Calcium Gluconate 2,000mg/100ml Nacl Premix IV 07/11/25 18:37 Infused ONCE ONE Infusion Pantoprazole Sodium 80 mg/ 100 mls @ 100 mls/hr 07/11/25 16:39 07/11/25 17:57 Sodium Chloride IV 07/11/25 17:38 Infused ONCE ONE Infusion Ceftriaxone Sodium 1 gm/ 50 mls @ 100 mls/hr 07/11/25 19:05 07/11/25 19:52 Sodium Chloride IV 07/11/25 19:34 Infused ONCE ONE Infusion Iopamidol 80 ml 07/11/25 16:52 07/11/25 16:53 Iopamidol-370 (76%);100ml Bottle IV 07/11/25 16:53 80 ml ONCE ONE Administration Sodium Chloride 50 ml 07/11/25 16:52 07/11/25 16:53 0.9 % Sodium Chloride 50 Ml Vial IV 07/11/25 16:53 50 ml ONCE ONE Administration Sodium Chloride 10 ml 07/11/25 16:52 07/11/25 16:53 Sodium Chloride 0.9% 10ml Syr (Rad Only) IV 07/11/25 16:53 10 ml ONCE ONE Administration ORDERS Category Date Time Status Type and Screen Stat BBK 07/11/25 15:[address] angio abd/pel - GI Bleed Stat Cat Scan 07/11/25 16:07 Completed Consult to Gastroenterology [CONS] Routine Cons 07/12/25 08:00 Active Basic Metabolic Panel [facility] Lab 07/12/25 06:00 Ordered Basic Metabolic Panel [facility] Lab 07/13/25 06:00 Ordered Basic Metabolic Panel [facility] Lab 07/14/25 06:00 Ordered Basic Metabolic Panel [facility] Lab 07/15/25 06:00 Ordered Basic Metabolic Panel [facility] Lab 07/16/25 06:00 Ordered Complete Blood Count Auto Diff [facility] Lab 07/12/25 06:00 Ordered Complete Blood Count Auto Diff [facility] Lab 07/13/25 06:00 Ordered Complete Blood Count Auto Diff [facility] Lab 07/14/25 06:00 Ordered Complete Blood Count Auto Diff [facility] Lab 07/15/25 06:00 Ordered Complete Blood Count Auto Diff [facility] Lab 07/16/25 06:00 Ordered Complete Blood Count Auto Diff Stat Lab 07/11/25 15:47 Completed Comprehensive Metabolic Panel Stat Lab 07/11/25 15:47 Completed Ferritin [facility] Lab 07/12/25 06:00 Ordered Folate Routine Lab 07/12/25 06:00 Ordered Hemoglobin and Hematocrit Q6 Lab 07/12/25 05:00 Ordered Hemoglobin and Hematocrit Q6 Lab 07/12/25 11:00 Ordered Hemoglobin and Hematocrit Stat Lab 07/11/25 20:26 Completed Iron and TIBC [facility] Lab 07/12/25 06:00 Ordered Lipase Stat Lab 07/11/25 15:47 Completed Occult Blood,Stool Stat Lab 07/11/25 17:21 Completed PT INR [Prothrombin Time INR] Stat Lab 07/11/25 15:47 Completed Reticulocyte % (Auto) [facility] Lab 07/12/25 06:00 Ordered Urinalysis and Microscopic Stat Lab 07/11/25 18:12 Completed Vitamin B12 Routine Lab 07/12/25 06:00 Ordered Zinc [facility] Lab 07/13/25 06:00 Ordered Urine Culture Stat Micro 07/11/25 18:12 Received Medical Decision Narrative: 84-year-old female presents the emergency department at the request of PCPs office for anemia generalized weakness, differential diagnosis include but not limited to acute GI bleed, symptomatic anemia, acute UTI, failure to thrive, hypovolemia, cardiac arrhythmia, electrolyte disturbance among others. Will obtain basic laboratory studies, type and screen, lipase level, PT/INR, urinalysis, EKG, fecal occult and CTA abdomen pelvis GI bleed protocol. CBC notable for erythrocyte pi?a 2.7 hemoglobin is 8.3 and hematocrit 26.9 PT is elevated at 12.9, INR is 1.18 Hyponatremia 133, hyperkalemia at 5.8, creatinine is elevated at 1.8, BUN is elevated 43, hypocalcemia at 8.2, Will give 1 L IV NS, will also give 80 mg of IV Protonix, as well as some IV 2gm calcium gluconate, for hyperkalemia. Blood type is a positive. Fecal occult is positive. I reviewed the patient's CTA chest with without contrast PE protocol, large heterogeneously hyperenhancing macro Marquez complex cystic and solid mass occupying the superior right kidney worrisome for malignancy, cholelithiasis mild prominence of the gallbladder as well as, bile duct dilation measuring approximately 9.8 mm, recommend clinical correlation right upper quadrant ultrasound, diffuse pancreatic ductal dilatation, several duodenal diverticula without evidence of diverticulitis, bladder wall thickening most likely affecting the incomplete distention or cystitis, apparent mild proximal gastric mural thickening could be on the basis of incomplete distention but cannot exclude gastritis or other inflammatory filtrate or process correlate clinically, moderate to marked compressive changes along the L1 vertebral body most prominent anteriorly with retropulsion of the posterior superior and inferior components of the vertebral body resulting in moderate central canal stenosis the overall appearance suggest chronic process but recommend clinical correlation is, several additional compression fracture also age-indeterminate require clinical correlation mild discrete enlargement of left adrenal gland uncertain clinical significance correlate clinically. Recommend comparison with any prior studies available. I discussed this patient's case with the on-call GI physician Dr. Padilla at approximately 6:38 PM, he feels that the patient has quite significant other comorbidities, if stable could pursue outpatient GI scope versus admission. I will discuss this patient's case with the patient's PCP. I discussed this patient's case with Dr. Solares the patient's PCP, he recommends either admission or outpatient follow-up in the next couple of days, he will arrange close outpatient follow-up with patient is discharged. He was worried about atrial fibrillation/tachycardia in the setting of the patient's newly diagnosed atrial fibrillation, potentially start the patient on digoxin as outpatient versus inpatient. Attempted to get the patient up and ambulated, patient does have generalized weakness walks with a walker at baseline, did have some episodes of tachycardia when up in the bed. UA is negative for nitrites, 1+ hematuria, 1+ leukocyte Estrace. Occasional RBCs, 2050 WBCs, 10-20 squamous epithelial cells and 4+ urine bacteria. Will treat with 1 g IV ceftriaxone. I attempted to discuss this patient's case with the hospitalist GOKUL Munoz, at approximately 7:03 PM, he has performed patient care at this time will call me back. I discussed this patient's case with the attending physician Dr. Velasquez, at shift change, will be assuming admitted the patient's care/workup, disposition is pending discussion with hospitalist physician versus admit/discharge. <María Elena Velasquez, DO - Last Filed: 07/11/25 22:53> Vital Signs: 07/11/25 15:30 07/11/25 15:32 07/11/25 16:00 Temperature 98.1 F Temperature Source Axillary Pulse Rate 80 82 Pulse Rate [Left] 83 Respiratory Rate 14 16 16 Blood Pressure 106/62 L 106/63 L Blood Pressure [Right Arm] 107/65 L Blood Pressure Mean 81 71 Blood Pressure Mean [Right Arm] 79 Blood Pressure Source Blood Pressure Source [Right Arm] Automatic Cuff Blood Pressure Position Blood Pressure Position [Right Arm] Sitting 02 Sat by Pulse Oximetry 99 100 100 Oxygen Delivery Method Room Air Room Air Room Air 07/11/25 16:30 07/11/25 17:00 07/11/25 17:30 Temperature Temperature Source Pulse Rate 83 67 85 Pulse Rate [Left] Respiratory Rate 19 17 Blood Pressure 114/73 94/63 L 105/58 L Blood Pressure [Right Arm] Blood Pressure Mean 86 Blood Pressure Mean [Right Arm] Blood Pressure Source Blood Pressure Source [Right Arm] Blood Pressure Position Blood Pressure Position [Right Arm] 02 Sat by Pulse Oximetry 100 100 98 Oxygen Delivery Method Room Air 07/11/25 18:00 07/11/25 18:30 07/11/25 19:00 Temperature Temperature Source Pulse Rate 93 H 87 89 Pulse Rate [Left] Respiratory Rate 14 15 16 Blood Pressure 118/71 111/60 Blood Pressure [Right Arm] Blood Pressure Mean Blood Pressure Mean [Right Arm] Blood Pressure Source Blood Pressure Source [Right Arm] Blood Pressure Position Blood Pressure Position [Right Arm] 02 Sat by Pulse Oximetry 95 100 99 Oxygen Delivery Method 07/11/25 19:00 07/11/25 19:15 07/11/25 19:30 Temperature Temperature Source Pulse Rate 95 H 95 H Pulse Rate [Left] Respiratory Rate 12 12 Blood Pressure 105/60 L Blood Pressure [Right Arm] Blood Pressure Mean 76 Blood Pressure Mean [Right Arm] Blood Pressure Source Blood Pressure Source [Right Arm] Blood Pressure Position Blood Pressure Position [Right Arm] 02 Sat by Pulse Oximetry 99 100 Oxygen Delivery Method 07/11/25 19:30 07/11/25 19:58 Temperature 98.1 F Temperature Source Pulse Rate 95 H Pulse Rate [Left] Respiratory Rate 12 Blood Pressure 102/49 L 102/49 L Blood Pressure [Right Arm] Blood Pressure Mean 67 Blood Pressure Mean [Right Arm] Blood Pressure Source Automatic Cuff Blood Pressure Source [Right Arm] Blood Pressure Position Sitting Blood Pressure Position [Right Arm] 02 Sat by Pulse Oximetry Oxygen Delivery Method Room Air Lab Data Lab Results 07/11/25 15:47: WBC 7.5, RBC 2.77 L, Hgb 8.3 L, Hct 26.9 L, MCV 97.1, MCH 30.0, MCHC 30.9 L, RDW 14.2, Plt Count 331, MPV 9.6, Neut % (Auto) 86.3 H, Lymph % (Auto) 6.1 L, Cook % (Auto) 7.0, Eos % (Auto) 0.0 L, Baso % (Auto) 0.1, Neut # (Auto) 6.5, Lymph # (Auto) 0.5 L, Cook # (Auto) 0.5, Eos # (Auto) 0.0, Baso # (Auto) 0.0, Total Counted 100, Neutrophils % (Manual) 87 H, Lymphocytes % (Manual) 8 L, Monocytes % (Manual) 5, Platelet Estimate Normal, RBC Morphology Normal, PT 12.9 H, INR 1.18 H, Sodium 133 L, Potassium 5.8 H, Chloride 108 H, C arbon Dioxide 18 L, Anion Gap 12.8, BUN 43 H, Creatinine 1.80 H, Estimated Creat Clear 17, Estimated GFR 27 L, Est GFR ( Amer) 32 L, Glucose 89, Calcium 8.2 L, Total Bilirubin 0.6, AST 27, ALT 15, Alkaline Phosphatase 157 H, Total Protein 5.7 L, Albumin 2.6 L, Globulin 3.1, Albumin/Globulin Ratio 0.8 L, Lipase 159 07/11/25 15:55: Blood Type A Positive, Antibody Screen Negative 07/11/25 17:21: Stool Occult Blood Positive A 07/11/25 18:12: Urine Color Yellow, Urine Appearance Clear, Urine pH 5.5, Ur Specific Sayre 1.010, Urine Protein Negative, Urine Glucose (UA) Negative, Urine Ketones Negative, Urine Blood 1+ A, Urine Nitrate Negative, Urine Bilirubin Negative, Urine Urobilinogen 0.2, Ur Leukocyte Esterase 1+ A, Urine RBC Occasional, Urine WBC 20-50, Ur Squamous Epith Cells 10-20, Urine Bacteria 4+ Orders (Tests/Meds): ED MEDICATIONS Generic Name Dose Route Start Last Admin Trade Name Freq PRN Reason Stop Dose Admin Acetaminophen 650 mg 07/11/25 19:38 Acetaminophen 325mg Tab PO 08/10/25 19:37 Q4HP PRN Fever or Mild Pain (1-3) Lactated Ringer's 1,000 mls @ 100 mls/hr 07/11/25 19:45 07/11/25 20:33 Lactated Ringer's 1000 Ml Bag IV 08/10/25 19:44 100 mls/hr .Q10H ELLIE Administration Ondansetron HCl 4 mg 07/11/25 19:38 Ondansetron 4mg/2ml Vial IV 08/10/25 19:37 Q8HP PRN Nausea Pantoprazole Sodium 40 mg 07/12/25 09:00 Pantoprazole 40mg Vial IV 08/11/25 08:59 BID ELLIE Sodium Chloride 10 ml 07/11/25 19:41 Sodium Chloride 0.9% 10ml Vial IV 08/10/25 19:40 NEEDED PRN dilute protonix Discontinued Medications Generic Name Dose Route Start Last Admin Trade Name Freq PRN Reason Stop Dose Admin Sodium Chloride 1,000 mls @ 999 mls/hr 07/11/25 16:37 07/11/25 18:24 Sod Chlor 0.9% 1000ml Bag IV 07/11/25 17:37 Infused .Q1H1M ONE Infusion Calcium Gluconate/Sodium Chloride 2 gm in 100 mls @ 50 mls/hr 07/11/25 16:38 07/11/25 19:03 Calcium Gluconate 2,000mg/100ml Nacl Premix IV 07/11/25 18:37 Infused ONCE ONE Infusion Pantoprazole Sodium 80 mg/ 100 mls @ 100 mls/hr 07/11/25 16:39 07/11/25 17:57 Sodium Chloride IV 07/11/25 17:38 Infused ONCE ONE Infusion Ceftriaxone Sodium 1 gm/ 50 mls @ 100 mls/hr 07/11/25 19:05 07/11/25 19:52 Sodium Chloride IV 07/11/25 19:34 Infused ONCE ONE Infusion Iopamidol 80 ml 07/11/25 16:52 07/11/25 16:53 Iopamidol-370 (76%);100ml Bottle IV 07/11/25 16:53 80 ml ONCE ONE Administration Sodium Chloride 50 ml 07/11/25 16:52 07/11/25 16:53 0.9 % Sodium Chloride 50 Ml Vial IV 07/11/25 16:53 50 ml ONCE ONE Administration Sodium Chloride 10 ml 07/11/25 16:52 07/11/25 16:53 Sodium Chloride 0.9% 10ml Syr (Rad Only) IV 07/11/25 16:53 10 ml ONCE ONE Administration ORDERS Category Date Time Status Type and Screen Stat BBK 07/11/25 15:[address] angio abd/pel - GI Bleed Stat Cat Scan 07/11/25 16:07 Completed Consult to Gastroenterology [CONS] Routine Cons 07/12/25 08:00 Active Basic Metabolic Panel [facility] Lab 07/12/25 06:00 Ordered Basic Metabolic Panel [facility] Lab 07/13/25 06:00 Ordered Basic Metabolic Panel [facility] Lab 07/14/25 06:00 Ordered Basic Metabolic Panel [facility] Lab 07/15/25 06:00 Ordered Basic Metabolic Panel [facility] Lab 07/16/25 06:00 Ordered Complete Blood Count Auto Diff [facility] Lab 07/12/25 06:00 Ordered Complete Blood Count Auto Diff [facility] Lab 07/13/25 06:00 Ordered Complete Blood Count Auto Diff [facility] 07/14/25 06:00 Ordered Complete Blood Count Auto Diff [facility] 07/15/25 06:00 Ordered Complete Blood Count Auto Diff [facility] 07/16/25 06:00 Ordered Complete Blood Count Auto Diff Stat Lab 07/11/25 15:47 Completed Comprehensive Metabolic Panel Stat Lab 07/11/25 15:47 Completed Ferritin [facility] 07/12/25 06:00 Ordered Folate Routine Lab 07/12/25 06:00 Ordered Hemoglobin and Hematocrit Q6 Lab 07/12/25 05:00 Ordered Hemoglobin and Hematocrit Q6 Lab 07/12/25 11:00 Ordered Hemoglobin and Hematocrit Stat Lab 07/11/25 20:26 Completed Iron and TIBC [facility] 07/12/25 06:00 Ordered Lipase Stat Lab 07/11/25 15:47 Completed Occult Blood,Stool Stat Lab 07/11/25 17:21 Completed PT INR [Prothrombin Time INR] Stat Lab 07/11/25 15:47 Completed Reticulocyte % (Auto) [facility] 07/12/25 06:00 Ordered Urinalysis and Microscopic Stat Lab 07/11/25 18:12 Completed Vitamin B12 Routine Lab 07/12/25 06:00 Ordered Zinc [facility] 07/13/25 06:00 Ordered Urine Culture Stat Micro 07/11/25 18:12 Received Medical Decision Narrative: 84-year-old female presents the emergency department at the request of PCPs office for anemia generalized weakness, differential diagnosis include but not limited to acute GI bleed, symptomatic anemia, acute UTI, failure to thrive, hypovolemia, cardiac arrhythmia, electrolyte disturbance among others. Will obtain basic laboratory studies, type and screen, lipase level, PT/INR, urinalysis, EKG, fecal occult and CTA abdomen pelvis GI bleed protocol. CBC notable for erythrocyte pi?a 2.7 hemoglobin is 8.3 and hematocrit 26.9 PT is elevated at 12.9, INR is 1.18 Hyponatremia 133, hyperkalemia at 5.8, creatinine is elevated at 1.8, BUN is elevated 43, hypocalcemia at 8.2, Will give 1 L IV NS, will also give 80 mg of IV Protonix, as well as some IV 2gm calcium gluconate, for hyperkalemia. Blood type is a positive. Fecal occult is positive. I reviewed the patient's CTA chest with without contrast PE protocol, large heterogeneously hyperenhancing macro Marquez complex cystic and solid mass occupying the superior right kidney worrisome for malignancy, cholelithiasis mild prominence of the gallbladder as well as, bile duct dilation measuring approximately 9.8 mm, recommend clinical correlation right upper quadrant ultrasound, diffuse pancreatic ductal dilatation, several duodenal diverticula without evidence of diverticulitis, bladder wall thickening most likely affecting the incomplete distention or cystitis, apparent mild proximal gastric mural thickening could be on the basis of incomplete distention but cannot exclude gastritis or other inflammatory filtrate or process correlate clinically, moderate to marked compressive changes along the L1 vertebral body most prominent anteriorly with retropulsion of the posterior superior and inferior components of the vertebral body resulting in moderate central canal stenosis the overall appearance suggest chronic process but recommend clinical correlation is, several additional compression fracture also age-indeterminate require clinical correlation mild discrete enlargement of left adrenal gland uncertain clinical significance correlate clinically. Recommend comparison with any prior studies available. I discussed this patient's case with the on-call GI physician Dr. Padilla at approximately 6:38 PM, he feels that the patient has quite significant other comorbidities, if stable could pursue outpatient GI scope versus admission. I will discuss this patient's case with the patient's PCP. I discussed this patient's case with Dr. Solares the patient's PCP, he recommends either admission or outpatient follow-up in the next couple of days, he will arrange close outpatient follow-up with patient is discharged. He was worried about atrial fibrillation/tachycardia in the setting of the patient's newly diagnosed atrial fibrillation, potentially start the patient on digoxin as outpatient versus inpatient. Attempted to get the patient up and ambulated, patient does have generalized weakness walks with a walker at baseline, did have some episodes of tachycardia when up in the bed. UA is negative for nitrites, 1+ hematuria, 1+ leukocyte Estrace. Occasional RBCs, 2050 WBCs, 10-20 squamous epithelial cells and 4+ urine bacteria. Will treat with 1 g IV ceftriaxone. I attempted to discuss this patient's case with the hospitalist GOKUL Munoz, at approximately 7:03 PM, he has performed patient care at this time will call me back. I discussed this patient's case with the attending physician Dr. Velasquez, at shift change, will be assuming admitted the patient's care/workup, disposition is pending discussion with hospitalist physician versus admit/discharge. María Elena Velasquez, DO I assumed care of this patient at 1900. After further evaluation of patient's workup, patient has a urinary tract infection as well as an EYAL. Patient does have a downtrending hemoglobin of 8.3 at this time patient is currently on blood thinners, patient did have a positive Hemoccult test given the culmination of findings and felt that it was appropriate to admit the patient for GI to see and scope given concern for possible GI bleed. Patient was given Rocephin for her urinary tract infection, patient was given 80 of IV Protonix. Patient was hemodynamically stable and patient was admitted to the hospital service for further evaluation and workup. Critical Care <ALMA Carrillo - Last Filed: 07/11/25 19:10> Critical Care Time Critical Care Time: No
[2025-07-11 16:10] LABS: Hematocrit 26.9 % (37.0-47.0); Hemoglobin 8.3 g/dL (12.2-16.2); Immature Granulocytes % 0.5 %; Mean Corpuscular HGB Conc 30.9 g/dL (31.8-35.4); Mean Corpuscular Hemoglobin 30.0 pg (27.0-31.2); Mean Corpuscular Volume 97.1 fl (81-99); Nucleated Red Blood Cells % 0 %; Platelet Count 331 K/mm3 (142-424); Red Blood Count 2.77 M/mm3 (4.20-5.40); Red Cell Distribution Width-SD 50.4 fL; White Blood Count 7.5 K/mm3 (4.8-10.8)
[2025-07-11 16:18] LABS: Albumin Level 2.6 g/dl (3.5-5.0); Chloride 108 mmol/L (98-107); Sodium 133 mmol/L (136-145)
[2025-07-11 16:19] LABS: Potassium 5.8 mmoL/L (3.5-5.1)
[2025-07-11 16:21] LABS: Alanine Aminotransferase 15 U/L (12-78); Albumin/Globulin Ratio 0.8 (1.1-1.8); Alkaline Phosphatase 157 U/L (38-126); Anion Gap 12.8 mEq/L (5-15); Aspartate Amino Transferase 27 U/L (14-36); Bilirubin,Total 0.6 mg/dl (0.2-1.3); Blood Urea Nitrogen 43 mg/dl (7-17); Calcium 8.2 mg/dl (8.4-10.2); Carbon Dioxide 18 mmol/L (22.0-30.0); Creatinine Clearance Estimated 17 mL/min (50-200); Creatinine,Serum 1.80 mg/dl (0.52-1.04); Estimated Glomerular Filt Rate 27 ml/min (>60); GFR (African American) 32 ML/MIN (>60); Globulin 3.1 g/dL (1.3-3.2); Glucose 89 mg/dl (74-100); INR 1.18 (0.9-1.1); Lipase 159 U/L (23-300); Prothrombin Time 12.9 seconds (10.1-12.5); Total Protein,Serum 5.7 g/dl (6.3-8.2)
--- NOTE | 2025-07-11 16:32 | ECG_ITS ---
APPROVED REPORT Exam: Resting ECG HR:81 bpm ECG Measurements Heart Rate 81 AXES WA 142 P 60 QRSd 81 QRS -8 QT 349 T 58 QTc 386 Conclusion SINUS RHYTHM LOW QRS VOLTAGE [QRS DEFLECTION < 0.5/1.0 mV IN LIMB/CHEST LEADS] ABNORMAL ECG UNCONFIRMED REPORT Electronically signed by : ARNOL VELÁSQUEZ, 07/13/2025 06:58:15
[2025-07-11 16:39] LABS: RBC Morphology Normal
[2025-07-11 16:40] LABS: Total Cells Counted 100
[2025-07-11] MEDS: IOPAMIDOL-370 (76%);100ML BOTTLE 80 ML IV (16:53)
[2025-07-11] MEDS: SODIUM CHLORIDE 0.9% 10ML SYR (RAD ONLY) 10 ML IV (16:53)
[2025-07-11] MEDS: 0.9 % SODIUM CHLORIDE 50 ML VIAL IV (16:53)
[2025-07-11] MEDS: PANTOPRAZOLE SODIUM 80 MG in 0.9 % SODIUM CHLORIDE 100 ML 100 MG IV (17:04)
[2025-07-11] MEDS: 0.9 % SODIUM CHLORIDE 1000ML 1,000 ML 999 ML IV (17:04)
[2025-07-11] MEDS: CALCIUM GLUC IN NACL, ISO-OSM 2 GM/100 ML BAG IV (17:10)
[2025-07-11 17:31] LABS: Occult Blood,Stool Positive (Negative)
[2025-07-11 18:20] LABS: Microscopic, Urine URINE MICROSCOPIC (MICROSCOPIC)
[2025-07-11 18:31] LABS: Bilirubin,Urine Negative (Negative); Color,Urine YELLOW (Yellow); Glucose,Urine (UA) Negative (Negative); Ketones,Urine Negative (Negative); Leukocyte Esterase,Urine 1+ (Negative); PH,Urine 5.5 (5.0-8.5); Protein,Urine Negative (Negative); Specific Gravity, Urine 1.010 (1.005-1.030); Urobilinogen,Urine 0.2 EU/dl (0.2)
--- NOTE | 2025-07-11 18:41 | PC.NURSE ---
ALMA Novoa speaking with GI. Morena
--- NOTE | 2025-07-11 18:42 | PC.NURSE ---
Dr. Summer mayes.
[2025-07-11 18:50] LABS: RBC,Urine Occasional #/hpf (0-3); WBC,Urine 20-50 #/hpf (0-3)
[2025-07-11 18:51] LABS: Bacteria,Urine 4+ /lpf
--- NOTE | 2025-07-11 19:43 | P.HP_ITS ---
<Statement entered by Jerome Asencio MD - 07/12/25 15:43> Personally evaluated patient and agree with the plan of care as outlined by the [employer]. History of Present Illness *Admission Date: 07/11/25 *Reason for visit:: Weakness *History of present illness: This is an 84-year-old female who has a past medical history significant for hypertension, atrial fibrillation, and GERD who presents from her primary care physician's office with a concern for GI bleed. Due to patient's symptoms, she presented to the emergency room for evaluation. While in emergency room, patient's hemoglobin was noted to have a 2 g decrease. CTA of the abdomen pelvis revealed large cystic mass on the right kidney, cholelithiasis with mild prominence of the gallbladder/dilation of the common bile duct at 9.8 mm, diffuse pancreatic duct dilation, severe duodenal divertic ulum with without evidence of diverticulitis, mild bladder wall thickening concerning for cystitis, and mild nondescript enlargement of the left adrenal gland. Patient's case was discussed with GI specialist who recommended admission for possible endoscopy. As a result of these recommendations, hospital medicine was consulted for further management. During my evaluation of the patient, patient states she was prescribed Eliquis for the management of atrial fibrillation approximately 3-4 months ago. Over the past 7 days she has been experiencing generalized weakness, decreased p.o. intake, and nonspecific fatigue. She presented to her primary care physician's office who noted she had a decrease in her hemoglobin hematocrit. Family member at the bedside states that patient has had prior GI bleeding which required transfusions and endoscopy. She reports that patient had multiple EGDs performed here. Unfortunately, I could not find these records. Patient is currently denying any chest pain, lightheadedness, frequency of urination, burning with urination, hematochezia, hematemesis, hematuria, melena, dizziness, fever, chills, rigors, nausea, vomiting, or diarrhea. Of note, the adrenal mass that was noted on CT imaging is a new finding. Additional pertinent vitals obtained include a red blood cell count of 2.77, hemoglobin 8.3, hematocrit of 26.9, neutrophils 86.3%, INR 1.18, sodium 133, potassium 5.8, chloride 108, carbon oxide of 18, BUN 43, creatinine 1.80, GFR 27, calcium 8.2, alkaline phosphate 157, and urinalysis revealed 1+ blood/1+ leukocyte Estrace/occasional RBCs/20-50/4+ bacteria white blood cells. [facility] Disclaimer: The information contained in this section may have been updated after the patient was seen, as this information can be updated by other users. 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 Family History (Updated 07/11/25 @ 22:28 by Marielle Palacios RN) Other No significant family history Social History Smoking Status: Never smoker alcohol intake: never substance use type: other current occupational status: retired Travel in the last 8 weeks?: None household members: children housing: house caffeine: No Other Medical History Have you received the Flu Vaccine for this season: No (refused) Have you received the Pneumonia Vaccine: No Review of Systems Review of Systems Review of systems:: pertinent systems reviewed and negative unless documented below Constitutional Constitutional: Reports chills, Reports fatigue, Reports poor appetite and Reports lethargy Eyes Eyes: Reports system reviewed and no additional complaints, except as documented ENT Ears, Nose, Mouth, and Throat: Reports system reviewed and no additional complaints, except as documented *Cardiovascular Cardiovascular: Reports system reviewed and no additional complaints, except as documented *Respiratory Respiratory: Reports system reviewed and no additional complaints, except as documented *Gastrointestinal Gastrointestinal: Reports system reviewed and no additional complaints, except as documented *Genitourinary Genitourinary: Reports system reviewed and no additional complaints, except as documented *Musculoskeletal Musculoskeletal: Reports system reviewed and no additional complaints, except as documented Integumentary/Breasts Skin/Breast: Reports system reviewed and no additional complaints, except as documented *Neurologic Neurologic: Reports system reviewed and no additional complaints, except as documented Psychiatric Psychiatric: Reports system reviewed and no additional complaints, except as documented Endocrine Endocrine: Reports fatigue Hematologic/Lymphatic Hematologic/Lymphatic: Reports system reviewed and no additional complaints, except as documented Allergic/Immunologic Allergic/Immunologic: Reports system reviewed and no additional complaints, except as documented Meds Home Medications and Allergies Home Medications ?Medication ?Instructions ?Recorded ?Confirmed ?Type cholecalciferol (vitamin D3) 25 1,000 unit PO DAILY Dumas pplement 10/17/20 08/13/22 History mcg (1,000 unit) capsule carvedilol 12.5 mg tablet 12.5 mg PO BID 10/02/2107/18 History furosemide 40 mg tablet 40 mg PO DAILY 10/02/2107/18 History hydrocodone 7.5 mg-acetaminophen 1 tab PO Q6H 08/13/22 08/13/22 History 325 mg tablet New Prescriptions to Start Prescriptions: Allergies Allergy/AdvReac Type Severity Reaction Status Date / Time Hhkuzcg-THB-OzJ Reductase Allergy Severe S-SWELLS-OR Verified 08/13/22 12:54 Inhibitor (Cdppthy-Hvg-Zhv AL/THROAT Reductase Inhibitor) NSAIDS (Non-Steroidal Allergy Unknown ULCERS Verified 08/13/22 12:54 Anti-Inflamma Exam Data for Last 24 hours Vital signs and Labs for Last 24 Hours: Temp Pulse Resp BP Pulse Ox O2 Del Method 98.1 F 87 15 111/60 100 Room Air 07/11/25 15:32 07/11/25 18:30 07/11/25 18:30 07/11/25 18:30 07/11/25 18:30 07/11/25 16:30 Laboratory Results - last 24 hr 07/11/25 15:47: WBC 7.5, RBC 2.77 L, Hgb 8.3 L, Hct 26.9 L, MCV 97.1, MCH 30.0, MCHC 30.9 L, RDW 14.2, Plt Count 331, MPV 9.6, Neut % (Auto) 86.3 H, Lymph % (Auto) 6.1 L, [place] % (Auto) 7.0, Eos % (Auto) 0.0 L, Baso % (Auto) 0.1, Neut # (Auto) 6.5, Lymph # (Auto) 0.5 L, [place] # (Auto) 0.5, Eos # (Auto) 0.0, Baso # (A uto) 0.0, Total Counted 100, Neutrophils % (Manual) 87 H, Lymphocytes % (Manual) 8 L, Monocytes % (Manual) 5, Platelet Estimate Normal, RBC Morphology Normal, PT 12.9 H, INR 1.18 H, Sodium 133 L, Potassium 5.8 H, Chloride 108 H, Carbon Dioxide 18 L, Anion Gap 12.8, BUN 43 H, Creatinine 1.80 H, Estimated Creat Clear 17, Estimated GFR 27 L, Est GFR ( Amer) 32 L, Glucose 89, Calcium 8.2 L, Total Bilirubin 0.6, AST 27, ALT 15, Alkaline Phosphatase 157 H, Total Protein 5.7 L, Albumin 2.6 L, Globulin 3.1, Albumin/Globulin Ratio 0.8 L, Lipase 159 07/11/25 15:55: Blood Type A Positive, Antibody Screen Negative 07/11/25 17:21: Stool Occult Blood Positive A 07/11/25 18:12: Urine Color Yellow, Urine Appearance Clear, Urine pH 5.5, Ur Specific [place] 1.010, Urine Protein Negative, Urine Glucose (UA) Negative, Urine Ketones Negative, Urine Blood 1+ A, Urine Nitrate Negative, Urine Bilir ubin Negative, Urine Urobilinogen 0.2, Ur Leukocyte Esterase 1+ A, Urine RBC Occasional, Urine WBC 20-50, Ur Squamous Epith Cells 10-20, Urine Bacteria 4+ I & O for Last 24 hours: Intake & Output 07/08/25 07/09/25 07/10/25 07/11/25 23:59 23:59 23:59 23:59 Intake Total 1200 / 1200 Balance 1200 / 1200 Weight 46.72 kg Constitutional Constitutional: no acute distress and cooperative *Routine HEENT Exam Head: Present normocephalic and atraumatic Eye: Present EOMI ENT: Present mucous membranes moist *Routine Neck Exam Neck: Present supple, full ROM and trachea midline *Routine Respiratory Exam Respiratory: Present CTA bilaterally, normal respiratory effort, able to speak in complete sentences and symmetric chest movement *Routine Cardiovascular Exam Cardiovascular: Present RRR, Normal S1 and Normal S2 *Routine Abdominal Exam Abdominal: Present soft and normoactive bowel sounds *Routine Rectal Exam Rectal:: deferred *Routine Genitalia Exam Genitalia:: deferred *Routine Extremities Exam Extremities: Present pulses intact and normal capillary refill Routine Back/Spine/Pelvis Exam Back/Spine: Present full ROM *Routine Skin Exam Skin: Present intact, dry and warm *Routine Neurological Exam Neurological: Present alert, oriented X3, moving all extremities and normal speech Routine Psychiatric Exam Psychiatric: Present normal affect, normal thought process, cooperative, good insight and good judgment H&P: Result Impressions This is an 84-year-old female who has had a 7-day duration of generalized weakness coupled with fatigue who is currently prescribed DOAC therapy and has a notable decrease in her hemoglobin hematocrit. Patient's prior hemoglobin was 10 she presents with a hemoglobin of 8. It is worth mentioning patient has had prior upper GI bleeding. Assessment and Plan *Assessment and plan (1) GI bleed: Status: Acute Qualifiers: GI bleed type/associated pathology: unspecified gastrointestinal hem orrhage type Qualified Code(s): K92.2 - Gastrointestinal hemorrhage, unspecified Category: Medical Code(s): K92.2 - Gastrointestinal hemorrhage, unspecified (2) Hyperkalemia: Status: Acute Category: Medical Code(s): E87.5 - Hyperkalemia (3) EYAL (acute kidney injury): Status: Acute Category: Medical Code(s): N17.9 - Acute kidney failure, unspecified (4) Adrenal abnormality: Status: Acute Category: Medical Code(s): E27.9 - Disorder of adrenal gland, unspecified (5) Metabolic acidosis: Status: Acute Category: Medical Code(s): E87.20 - Acidosis, unspecified (6) UTI (urinary tract infection): Status: Acute Qualifiers: Hematuria presence: without hematuria Urinary tract infection type: site unspecified Qualified Code(s): N39.0 - Urinary tract infection, site not specified Category: Medical Code(s): N39.0 - Urinary tract infection, site not specified Plan Assessment: GI bleed: Most likely upper Normocytic normochromic anemia: May be due to acute blood loss - Hold patient's DOAC therapy - Clear liquid diet with no red foods; n.p.o. after midnight - Consult GI in a.m. - 40 mg Protonix IV twice daily - Hemoglobin hematocrit every 8 hours - Patient has prior history of GI bleeding and may not be a candidate for DOAC therapy - May need to discuss this with patient's front edger or prescribing discipline - Anemia profile Acute kidney injury: Most likely prerenal - Will avoid nephrotoxic drugs - LR at 100 mL an hour - Will continue ultrasound and renal workup if patient's creatinine does not improve in the a.m. with IV hydration Hyperkalemia - This is mild and will monitor for now - Patient did receive 2 g of calcium gluconate while in the emergency room - Will consider Lokelma if still elevated Adrenal abnormality - Patient had an incidental finding of an adrenal mass/cyst - Currently patient is without any symptomology - I believe it is safe to have patient follow-up outpatient - Will discuss with attending Metabolic acidosis - Will monitor for now and consider bicarb supplementation if no improvement Possible urinary tract infection Asymptomatic bacteriuria - Patient is currently denying any urinary tract infection symptoms however imaging of the abdomen pelvis did show some cystitis - Patient did receive 1 g of Rocephin IV while in the emergency room - I will hold off on any further antibiotics for now - Will monitor patient's urine culture to see what grows Plan: Admit patient to the MedSurg unit on telemetry Activity as tolerated SCDs to bilateral lower extremity Patient may need to find an alternate therapy for management of A-fib due to upper GI bleed Vital signs every 4 hours N.p.o. after midnight Anemia profile CBC/BMP daily Lactated Ringer's at 100 mL is now 4 mg Zofran IV push. Hours. Nausea vomit Will monitor patient's potassium for now and if still elevated will consider Lokelma Full code I will discussed this case with attending physician Dr. Asencio and I look forward to more input
[2025-07-11] MEDS: LACTATED RINGERS 1000ML 1,000 ML 100 ML IV (20:33)
[2025-07-11 20:37] LABS: Hematocrit 24.1 % (37.0-47.0)
[2025-07-11 20:44] LABS: Hemoglobin 7.4 g/dL (12.2-16.2)
--- NOTE | 2025-07-11 21:26 | PC.NURSE ---
Contacted Sidney Rose to report new H&H 7.03/09.1. Pt is hypotensive but asymptomatic at this time. orders to monitor pt for symptoms at this time.
[2025-07-12] VITALS (34 sets, daily range): BP systolic 88–131; BP diastolic 42–71; PULSE 76–105; RESP 14–18; TEMP 35.9–36.9; O2SAT 97–99; BMI 20.3
[2025-07-12 05:54] LABS: Immature Granulocytes % 0.2 %; Mean Corpuscular HGB Conc 31.0 g/dL (31.8-35.4); Mean Corpuscular Hemoglobin 30.3 pg (27.0-31.2); Mean Corpuscular Volume 97.6 fl (81-99); Nucleated Red Blood Cells % 0 %; Platelet Count 247 K/mm3 (142-424); Red Blood Count 2.08 M/mm3 (4.20-5.40); Red Cell Distribution Width-SD 51.8 fL; Reticulocyte % (Auto) 3.0 % (0.9-3.2); White Blood Count 4.2 K/mm3 (4.8-10.8)
[2025-07-12 05:57] LABS: Hemoglobin 6.3 g/dL (12.2-16.2)
[2025-07-12 05:58] LABS: Hematocrit 20.3 % (37.0-47.0)
[2025-07-12 05:59] LABS: Chloride 113 mmol/L (98-107)
--- NOTE | 2025-07-12 05:59 | PC.NURSE ---
lab reported critical H&H: 6.3.3, Sidney Rose, FUR STRETCHER aware. 2 units ordered at this time
[2025-07-12 06:00] LABS: Potassium 5.0 mmoL/L (3.5-5.1); Sodium 133 mmol/L (136-145)
[2025-07-12 06:03] LABS: Blood Urea Nitrogen 35 mg/dl (7-17); Creatinine Clearance Estimated 20 mL/min (50-200); Creatinine,Serum 1.50 mg/dl (0.52-1.04); Estimated Glomerular Filt Rate 33 ml/min (>60); GFR (African American) 40 ML/MIN (>60)
[2025-07-12 06:05] LABS: Anion Gap 8.0 mEq/L (5-15); Calcium 7.8 mg/dl (8.4-10.2); Carbon Dioxide 17 mmol/L (22.0-30.0); Glucose 68 mg/dl (74-100)
[2025-07-12 06:51] LABS: Iron 25 ug/dL (37-170)
[2025-07-12 07:01] LABS: Total Iron Binding Capacity 181 ug/dL (265-497)
[2025-07-12 07:28] LABS: Ferritin 14.2 ng/ml (11.1-264)
--- NOTE | 2025-07-12 07:54 | HMH.PHAINT1 ---
Pharmacy Intervention Comments: MEDICATION RECONCILIATION COMPLETED ON PATIENT USING EXTERNAL FILL HISTORY FROM PHARMACY. -KENDRICK OSWALD, DEYAD
[2025-07-12] MEDS: PANTOPRAZOLE 40MG VIAL 40 MG IV ×2 (08:50→20:45)
--- NOTE | 2025-07-12 14:12 | P.PNANES_ITS ---
[facility] Disclaimer: The information contained in this section may have been updated after the patient was seen, as this information can be updated by other users. Medical History (Updated 07/12/25 @ 14:28 by Tanner Padilla II, MD) Impacted cerumen of left ear Deviated nasal septum Surgical History History of hip replacement History of bilateral knee replacement Family History (Updated 07/11/25 @ 22:28 by Marielle Palacios RN) Other No significant family history Social History (Updated 07/11/25 @ 22:28 by Marielle Palacios RN) Smoking Status: Never smoker alcohol intake: never substance use type: other current occupational status: retired Travel in the last 8 weeks?: None household members: children housing: house caffeine: No Have you lived/traveled outside [place] in past 30 days?: No Contact w/someone who lives/traveled outside [place] past 30 days?: No Exposure to someone with infectious disease in past 14 days?: No Do you have a fever (greater than 100.4 F or 38 C)?: No Have you tested positive for COVID-19?: No Exposed to someone with COVID-19 in past 14 days?: No Do you have a sore throat?: No Do you have a cough?: No Do you have any weakness?: No Do you have any diarrhea?: No Are you experiencing any unusual bleeding?: No Do you have any muscle aches/pain?: No Do you have any abdominal pain?: No Are you experiencing loss of taste or smell?: No [facility] Anesthesia Checklist Patient Identification Patient Identification: Arm Band Structural Data Admitted From: Home Planned Operative Procedure/s: EGD Consent for Planned Operative Procedure(s) Verified: Yes Verified Documents: Surgical Consent and History and Physical NPO Status Verified Time NPO: 00:00 Additional verifications Anesthesia Reactions: No Hx Blood Transfusions: Yes Blood Transfusion Reaction: No Airway Assessment Mallampati Score:: Class II C-Spine Mobility Assessed: Yes TMJ Mobility Assessed: Yes Dentition: Good Dentition Neurological Assessment Level of Consciousness: Awake, Alert and Appropriate Anesthesia Plan Anesthesia Risk discussed: Yes Anesthesia Plan: Verified ASA Class: III Anesthesia Type: MAC
--- NOTE | 2025-07-12 14:23 | P.PCN_ITS ---
[facility] Procedure Note Date: 07/12/25 Time: 14:33 Procedure Note:: Upper Endoscopy Procedure Report: Esophagogastroduodenoscopy with cold biopsies Endoscopost: Tanner Padilla II, MD Referring Physician: Hayder Wheeler M.D. Date of Procedure: July 12, 2025 Equipment: Olympus GIF-1100 standard upper endoscope Sedation: MAC sedation Indications: Mrs. Dudley is an 84-year-old female who is here for diagnostic upper endoscopy. She was admitted for symptomatic anemia and Hemoccult positive stool. The patient was sent from her PCP office because of a concern for GI bleed. The patient did have a drop in her hemoglobin and hematocrit. In August 2021 her hemoglobin hematocrit were 14.0 and 44.0. Earlier this morning, her hemoglobin hematocrit were 6.3 and 20.3 with normocytic indices (MCV 97.6). Her iron saturation was 13.8% with serum iron 25 and ferritin 14.2. She did have a CT scan of the abdomen and pelvis that showed a large heterogeneous hyperenhancing complex cystic solid mass in the superior right kidney concerning for malignancy. She also had some gallstones with mild prominence of the gallbladder as well as common bile duct dilation mildly to 9.8 mm. There was some diffuse pancreatic ductal dilation. There was also mild proximal gastric mural thickening that could be incomplete distention. The patient reports no melena, hematochezia or bright red blood per rectum. She does have a prior history of a bleeding duodenal ulcer diagnosed by James Torres M.D. 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 The patient reports no abdominal pain, dysphagia, heartburn or dyspepsia. She has had no hematemesis. The patient does have a history of atrial fibrillation and was started on Eliquis a few months ago. The patient has never had a colonoscopy. Procedure: Prior to the procedure, a history and physical exam was performed, and patient's medications and allergies were reviewed. The risks, benefits and alternatives of the sedation and procedure were discussed with the patient. All questions were answered and informed consent was obtained. The patient was brought to the procedure room. Patient identification and proposed procedure were verified by the physician and the nurse. The patient was placed in a left lateral decubitus position and the scope was passed under direct vision. Throughout the procedure, the patient's blood pressure, pulse, and oxygen saturations were monitored continuously. The upper GI endoscopy was accomplished without difficulty. The patient tolerated the procedure well. Findings: The scope was passed directly into the upper esophagus and advanced to the third portion of the duodenum. There was a large duodenal diverticulum in the second portion of the duodenum that was periampullary. The remainder of the post bulbar duodenum and duodenal bulb were normal with normal mucosa and conniventes. There were no ulcerations, erosions or AVMs. The scope was withdrawn through a normal duodenal bulb and pylorus into the stomach. There was bile reflux with mild antral gastropathy. There was moderate chronic atrophy/chronic atrophic gastritis of the body and fundus with loss of rugal folds and prominent vascular pattern. Cold biopsies were taken from the antrum as well as the fundus. There were no ulcerations or erosions. Upon retroflexion there was no hiatal hernia. The scope was then withdrawn into the esophagus. There was no evidence of reflux esophagitis or Bell's. There were strong tertiary contractions and slightly hypercontractile esophagus. There was no esophageal diverticulum. The remainder of the esophageal mucosa was normal. Impression: 1. 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 Chronic atrophic gastritis/gastric atrophy and mild antral gastropathy 3. Periampullary large duodenal diverticulum (second portion) Plan: There was no source of any GI bleed from the upper digestive tract. I would recommend that the patient have a colonoscopy because of the marked anemia. I am going to discuss with the patient and family and schedule colonoscopy for the a.m. I would recommend parenteral iron infusion/Venofer. The Watchman Left Atrial Appendage Closure provides a new option for patients with non-valvular atrial fibrillation who may require an alternative to long- term use of blood thinners. The patient does have paroxysmal atrial fibrillation. This is especially important in persons that have chronic gastrointestinal blood loss with resulting iron deficiency anemia that is greatly exacerbated by the use of blood thinners (anticoagulation).
--- NOTE | 2025-07-12 14:23 | EXP.HP ---
History of Present Illness *Admission Date: 07/12/25 *Reason for visit:: Anemia/Hemoccult positive stool *History of present illness: Mrs. Dudley is an 84-year-old female who is here for diagnostic upper endoscopy. She was admitted for symptomatic anemia and Hemoccult positive stool. The patient was sent from her PCP office because of a concern for GI bleed. The patient did have a drop in her hemoglobin and hematocrit. In August 2021 her hemoglobin hematocrit were 14.0 and 44.0. Earlier this morning, her hemoglobin hematocrit were 6.3 and 20.3 with normocytic indices (MCV 97.6). Her iron saturation was 13.8% with serum iron 25 and ferritin 14.2. She did have a CT scan of the abdomen and pelvis that showed a large heterogeneous hyperenhancing complex cystic solid mass in the superior right kidney concerning for malignancy. She also had some gallstones with mild prominence of the gallbladder as well as common bile duct dilation mildly to 9.8 mm. There was some diffuse pancreatic ductal dilation. There was also mild proximal gastric mural thickening that could be incomplete distention. The patient reports no melena, hematochezia or bright red blood per rectum. She does have a prior history of a bleeding duodenal ulcer diagnosed by James Torres M.D. 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 The patient reports no abdominal pain, dysphagia, heartburn or dyspepsia. She has had no hematemesis. The patient does have a history of atrial fibrillation and was started on Eliquis a few months ago. The patient has never had a colonoscopy. [facility] Disclaimer: The information contained in this section may have been updated after the patient was seen, as this information can be updated by other users. Medical History (Updated 07/12/25 @ 14:28 by Tanner Padilla II, MD) Impacted cerumen of left ear Deviated nasal septum Surgical History History of hip replacement History of bilateral knee replacement Family History (Updated 07/11/25 @ 22:28 by Marielle Palacios RN) Other No significant family history Social History (Updated 07/11/25 @ 22:28 by Marielle Palacios RN) Smoking Status: Never smoker alcohol intake: never substance use type: other current occupational status: retired Travel in the last 8 weeks?: None household members: children housing: house caffeine: No Have you lived/traveled outside [place] in past 30 days?: No Contact w/someone who lives/traveled outside US past 30 days?: No Exposure to someone with infectious disease in past 14 days?: No Do you have a fever (greater than 100.4 F or 38 C)?: No Have you tested positive for COVID-19?: No Exposed to someone with COVID-19 in past 14 days?: No Do you have a sore throat?: No Do you have a cough?: No Do you have any weakness?: No Do you have any diarrhea?: No Are you experiencing any unusual bleeding?: No Do you have any muscle aches/pain?: No Do you have any abdominal pain?: No Are you experiencing loss of taste or smell?: No Other Medical History Have you received the Flu Vaccine for this season: No Have you received the Pneumonia Vaccine: No Review of Systems Review of Systems Review of systems (narrative): Negative *Cardiovascular Comments: Negative *Gastrointestinal Comments: Negative *Genitourinary Comments: Negative *Musculoskeletal Comments: Negative *Neurologic Neurologic: Reports system reviewed and no additional complaints, except as documented Comments: Negative Meds Home Medications and Allergies Home Medications ?Medication ?Instructions ?Recorded ?Confirmed ?Type furosemide 40 mg tablet 40 mg PO DAILY 10/02/21 07/12/25 History hydrocodone 7.5 mg-acetaminophen 1 tab PO Q6H 08/13/22 07/12/25 History 325 mg tablet apixaban 2.5 mg tablet (Eliquis) 2.5 mg PO BID 07/12/25 07/12/25 History metoprolol tartrate 25 mg tablet 12.5 mg PO BID 07/12/25 07/12/25 History spironolactone 25 mg tablet 25 mg PO BID 07/12/25 07/12/25 History New Prescriptions to Start Prescriptions: Allergies Allergy/AdvReac Type Severity Reaction Status Date / Time [id number] Reductase Allergy Severe S-SWELLS-OR Verified 08/13/22 12:54 Inhibitor (Rvchjek-Dst-Wpe AL/THROAT Reductase Inhibitor) NSAIDS (Non-Steroidal Allergy Unknown ULCERS Verified 08/13/22 12:54 Anti-Inflamma Exam Data for Last 24 hours Vital signs and Labs for Last 24 Hours: Temp Pulse Resp BP Pulse Ox O2 Del Method 97.9 F 83 16 99/60 L 98 Room Air 07/12/25 13:07/12/25 13:07/12/25 13:07/12/25 13:07/12/25 13:07/12/25 13:21 Laboratory Results - last 24 hr 07/11/25 15:47: WBC 7.5, RBC 2.77 L, Hgb 8.3 L, Hct 26.9 L, MCV 97.1, MCH 30.0, MCHC 30.9 L, RDW 14.2, Plt Count 331, MPV 9.6, Neut % (Auto) 86.3 H, Lymph % (Auto) 6.1 L, [place] % (Auto) 7.0, Eos % (Auto) 0.0 L, Baso % (Auto) 0.1, Neut # (Auto) 6.5, Lymph # (Auto) 0.5 L, [place] # (Auto) 0.5, Eos # (Auto) 0.0, Baso # (Auto) 0.0, Total Counted 100, Neutrophils % (Manual) 87 H, Lymphocytes % (Manual) 8 L, Monocytes % (Manual) 5, Platelet Estimate Normal, RBC Morphology Normal, PT 12.9 H, INR 1.18 H, Sodium 133 L, Potassium 5.8 H, Chloride 108 H, Carbon Dioxide 18 L, Anion Gap 12.8, BUN 43 H, Creatinine 1.80 H, Estimated Creat Clear 17, Estimated GFR 27 L, Est GFR ( Amer) 32 L, Glucose 89, Calcium 8.2 L, Total Bilirubin 0.6, AST 27, ALT 15, Alkaline Phosphatase 157 H, Total Protein 5.7 L, Albumin 2.6 L, Globulin 3.1, Albumin/Globulin Ratio 0.8 L, Lipase 159 07/11/25 15:55: Blood Type A Positive, Antibody Screen Negative, Crossmatch (AHG) See Detail 07/11/25 17:21: Stool Occult Blood Positive A 07/11/25 18:12: Urine Color Yellow, Urine Appearance Clear, Urine pH 5.5, Ur Specific [place] 1.010, Urine Protein Negative, Urine Glucose (UA) Negative, Urine Ketones Negative, Urine Blood 1+ A, Urine Nitrate Negative, Urine Bilirubin Negative, Urine Urobilinogen 0.2, Ur Leukocyte Esterase 1+ A, Urine RBC Occasional, Urine WBC 20-50, Ur Squamous Epith Cells 10-20, Urine Bacteria 4+ 07/11/25 20:26: Hgb 7.4 L D, Hct 24.1 L 07/12/25 05:11: WBC 4.2 L D, RBC 2.08 L, Hgb 6.3 L*, Hct 20.3 L*, MCV 97.6, MCH 30.3, MCHC 31.0 L, RDW 14.6, Plt Count 247 D, MPV 9.8, Neut % (Auto) 67.5, Lymph % (Auto) 19.9, [place] % (Auto) 11.4 H, Eos % (Auto) 0.5, Baso % (Auto) 0.5, Neut # (Auto) 2.9, Lymph # (Auto) 0.8, [place] # (Auto) 0.5, Eos # (Auto) 0.0, Baso # (Auto) 0.0, Retic Count (auto) 3.0, Sodium 133 L, Potassium 5.0, Chloride 113 H, Carbon Dioxide 17 L, Anion Gap 8.0, BUN 35 H, Creatinine 1.50 H, Estimated Creat Clear 20, Estimated GFR 33 L, Est GFR ( Amer) 40 L D, Glucose 68 L D, Calcium 7.8 L, Iron 25 L, TIBC 181 L, Iron Saturation 13.84928 L, Ferritin 14.2 I & O for Last 24 hours: Intake & Output 07/09/25 07/10/25 07/11/25 07/12/25 23:59 23:59 23:59 23:59 Intake Total 1250 / 1370 1120 / 1120 Output Total 0 / 0 Balance 1250 / 1370 1120 / 1120 Weight 103 lb 8 oz 103 lb 9.6 oz Microbiology Reports for the Last 24 Hours: Microbiology 07/11/25 18:12 Urine,Clean Catch Urine Culture - Preliminary Gram Negative Rods *Routine HEENT Exam Head: Present normocephalic Eye: Present EOMI and PERRL ENT: Present mucous membranes moist *Routine Neck Exam Neck: Present supple *Routine Respiratory Exam Respiratory: Present CTA bilaterally *Routine Cardiovascular Exam Cardiovascular: Present RRR *Routine Abdominal Exam Abdominal: Present soft and normoactive bowel sounds; Absent tenderness *Routine Rectal Exam Rectal:: deferred *Routine Genitalia Exam Genitalia:: deferred *Routine Extremities Exam Extremities: Absent cyanosis, clubbing or edema *Routine Skin Exam Skin: Present warm; Absent rash *Routine Neurological Exam Neurological: Present alert and oriented X3 Assessment and Plan *Assessment and plan (1) GI bleed: Status: Acute Category: Medical Code(s): K92.2 - Gastrointestinal hemorrhage, unspecified (2) Anemia due to blood loss, acute: Status: Acute Category: Medical Code(s): D62 - Acute posthemorrhagic anemia (3) Positive occult stool blood test: Status: Acute Category: Medical Code(s): R19.5 - Other fecal abnormalities Plan A/P: 1. Acute anemia secondary to blood loss and GI bleed with Hemoccult positive stool is the preprocedural diagnosis. The patient will be anesthetized/sedated using MAC sedation. The patient has been seen and examined. Cardiac and lung assessment prior to the examination is stable. Proceed with planned diagnostic EGD.
[2025-07-12] MEDS: CEFTRIAXONE 1 GM 1 GM in 0.9 % SODIUM CHLORIDE 50 ML IV (15:31)
[2025-07-12] MEDS: IRON SUCROSE COMPLEX 200 MG in 0.9 % SODIUM CHLORIDE 100 ML 220 MG IV (15:31)
[2025-07-12 15:59] LABS: Hematocrit 32.4 % (37.0-47.0)
[2025-07-12 16:08] LABS: Hemoglobin 10.5 g/dL (12.2-16.2)
[2025-07-12 17:34] LABS: Vitamin B12 257 pg/mL (239-931)
[2025-07-12 17:49] LABS: Folate 11.70 ng/mL
--- NOTE | 2025-07-12 18:00 | PC.NURSE ---
FIRST DOSE OF BOWEL PREP ADMIN AT 1730. PT IS AOX4, TOLERATING ROOM AIR. EGD PERFORMED TODAY. 2 UNITS PRBCS ADMIN AND PT TOLERATED WELL.
[2025-07-12 18:28] LABS: Vitamin B12 201 pg/mL (239-931)
--- NOTE | 2025-07-12 20:10 | PC.NURSE ---
Pt temp 96.6 F. Active warming initiated, applied warm blankets and raised room temp at this time.
[2025-07-12] MEDS: ONDANSETRON 4MG/2ML VIAL 4 MG IV (20:45)
[2025-07-12] MEDS: SODIUM CHLORIDE 0.9% 10ML VIAL 10 ML IV (20:45)
[2025-07-12] MEDS: PEG-ELECTROLYTE SOLN 4000ML BOTTLE 4000 ML PO (20:46)
--- NOTE | 2025-07-12 21:20 | PC.NURSE ---
Pt has completed 50% of her bowel prep at this point. Pt did vomit approx 300 ml. Pt is having multiple liquid stools, this nurse treated pt for nausea at this time.
--- NOTE | 2025-07-12 21:28 | P.PN_ITS ---
Subjective *Date: 07/12/25 *Time: 21:28 Interval history: Patient feels slightly better today, receiving. Receiving blood transfusion. Colonoscopy in the morning, n.p.o. at midnight. Bowel prep overnight. Exam Data for Last 24 hours Vital signs and Labs for Last 24 Hours: Temp Pulse Resp BP Pulse Ox O2 Del Method 97.9 F 83 17 98/52 L 98 Room Air 07/12/25 16:15 07/12/25 16:15 07/12/25 16:15 07/12/25 16:15 07/12/25 16:15 07/12/25 18:44 Laboratory Results - last 24 hr 07/11/25 15:55: Blood Type A Positive, Antibody Screen Negative, Crossmatch (AHG) See Detail 07/11/25 18:12: Urine Color Yellow, Urine Appearance Clear, Urine pH 5.5, Ur Specific [place] 1.010, Urine Protein Negative, Urine Glucose (UA) Negative, Urine Ketones Negative, Urine Blood 1+ A, Urine Nitrate Negative, Urine Bilirubin Negative, Urine Urobilinogen 0.2, Ur Leukocyte Esterase 1+ A, Urine RBC Occasional, Urine WBC 20-50, Ur Squamous Epith Cells 10-20, Urine Bacteria 4+ 07/12/25 05:11: WBC 4.2 L D, RBC 2.08 L, Hgb 6.3 L*, Hct 20.3 L*, MCV 97.6, MCH 30.3, MCHC 31.0 L, RDW 14.6, Plt Count 247 D, MPV 9.8, Neut % (Auto) 67.5, Lymph % (Auto) 19.9, [place] % (Auto) 11.4 H, Eos % (Auto) 0.5, Baso % (Auto) 0.5, Neut # (Auto) 2.9, Lymph # (Auto) 0.8, [place] # (Auto) 0.5, Eos # (Auto) 0.0, Baso # (Auto) 0.0, Retic Count (auto) 3.0, Sodium 133 L, Potassium 5.0, Chloride 113 H, Carbon Dioxide 17 L, Anion Gap 8.0, BUN 35 H, Creatinine 1.50 H, Estimated Creat Clear 20, Estimated GFR 33 L, Est GFR ( Amer) 40 L D, Glucose 68 L D, Calcium 7.8 L, Iron 25 L, TIBC 181 L, Iron Saturation 13.77332 L, Ferritin 14.2, Vitamin B12 201 L, Folate 11.70 07/12/25 15:52: Hgb 10.5 L D, Hct 32.4 L, Vitamin B12 257 I & O for Last 24 hours: Intake & Output 07/09/25 07/10/25 07/11/25 07/12/25 23:59 23:59 23:59 23:59 Intake Total 1250 / 1370 1800 / 1800 Output Total 0 / 0 Balance 1250 / 1370 1800 / 1800 Weight 46.947 kg 46.992 kg Microbiology Reports for the Last 24 Hours: Microbiology 07/11/25 18:12 Urine,Clean Catch Urine Culture - Preliminary Gram Negative Rods Constitutional Constitutional: no acute distress *Routine HEENT Exam Head: Present normocephalic Eye: Present EOMI and PERRL ENT: Present mucous membranes moist *Routine Neck Exam Neck: Present supple; Absent lymphadenopathy *Routine Respiratory Exam Respiratory: Present CTA bilaterally *Routine Cardiovascular Exam Cardiovascular: Present RRR *Routine Abdominal Exam Abdominal: Present soft and normoactive bowel sounds; Absent tenderness *Routine Extremities Exam Extremities: Absent cyanosis, clubbing or edema *Routine Skin Exam Skin: Present warm; Absent rash *Routine Neurological Exam Neurological: Present alert Assessment and Plan *Assessment and plan (1) GI bleed: Status: Acute Qualifiers: GI bleed type/associated pathology: unspecified gastrointestinal hemorrhage type Qualified Code(s): K92.2 - Gastrointestinal hemorrhage, unspecified Category: Medical Code(s): K92.2 - Gastrointestinal hemorrhage, unspecified (2) Hyperkalemia: Status: Acute Category: Medical Code(s): E87.5 - Hyperkalemia (3) EYAL (acute kidney injury): Status: Acute Category: Medical Code(s): N17.9 - Acute kidney failure, unspecified (4) Adrenal abnormality: Status: Acute Category: Medical Code(s): E27.9 - Disorder of adrenal gland, unspecified (5) Metabolic acidosis: Status: Acute Category: Medical Code(s): E87.20 - Acidosis, unspecified (6) UTI (urinary tract infection): Status: Acute Qualifiers: Urinary tract infection type: site unspecified Hematuria presence: without hematuria Qualified Code(s): N39.0 - Urinary tract infection, site not specified Category: Medical Code(s): N39.0 - Urinary tract infection, site not specified Plan Assessment: GI bleed: Most likely upper Normocytic normochromic anemia: May be due to acute blood loss ? GI consulted, s/p EGD without evidence of bleeding. Plan for colonoscopy in the morning. Bowel prep overnight, n.p.o. at midnight. ? Cardiology consulted for recommendations on Eliquis. ? Hemoglobin dropped to 6.3, improved to 10.5 with 2 units PRBC. - Hold patient's DOAC therapy - Clear liquid diet with no red foods; n.p.o. after midnight - 40 mg Protonix IV twice daily - Patient has prior history of GI bleeding and may not be a candidate for DOAC therapy ? Iron, ferritin low. Ordered IV Venofer 200 mg. Acute kidney injury: Most likely prerenal ? Creatinine improved from 1.8-1.5, anticipate ongoing improvement with. BC transfusion. - Will avoid nephrotoxic drugs #Right kidney mass ? Concerning for malignancy, will need outpatient referral to urology. #UTI ? UA grossly abnormal, patient having urinary frequency. ? Continue IV ceftriaxone 1 g daily for total of 5 days.
[2025-07-13] VITALS (17 sets, daily range): BP systolic 88–130; BP diastolic 44–64; PULSE 88–120; RESP 15–18; TEMP 36.3–36.6; O2SAT 94–99; BMI 20.3
[2025-07-13] MEDS: ONDANSETRON 4MG ODT 4 MG SL (02:34)
[2025-07-13] MEDS: LACTATED RINGERS 1000ML 1,000 ML 100 ML IV (03:40)
--- NOTE | 2025-07-13 03:58 | PC.NURSE ---
Pt is alert and oriented x4. Pt remains on LR @ 100 ml/hr, pt continues to drink her bowel prep as tolerated and is approx 80% finished at this time, pt has not c/o of nausea since being treated earlier this shift. Pt stool is of a liquid consistency and light brown in color. Pt jossie area in reddened d/t multiple stools this shift, and is tolerating Q2 turns well. Pt admits to feel better, pt daughter remains at bedside.
--- NOTE | 2025-07-13 05:25 | PC.NURSE ---
Contacted Sidney Rose APRN, Pt has 1+ edema in her upper extremities and 1+ pitting edema in her lower extremities. Her BP is 112/55, with a HR of 108. Pt lung sounds remain clear throughout. Pt has 360 ml of her golytely left, however her stool is very light brown to clear liquid without solids. Pt has finished approx 3340 ml of her 4000 ml of golytely. new orders to stop golytely, reduce LR to 75 ml/hr, and a chest x-ray.
[2025-07-13 06:05] LABS: Hematocrit 32.0 % (37.0-47.0); Hemoglobin 10.5 g/dL (12.2-16.2); Immature Granulocytes % 0.4 %; Mean Corpuscular HGB Conc 32.8 g/dL (31.8-35.4); Mean Corpuscular Hemoglobin 31.0 pg (27.0-31.2); Mean Corpuscular Volume 94.4 fl (81-99); Nucleated Red Blood Cells % 0 %; Platelet Count 220 K/mm3 (142-424); Red Blood Count 3.39 M/mm3 (4.20-5.40); Red Cell Distribution Width-SD 52.7 fL; White Blood Count 7.3 K/mm3 (4.8-10.8)
[2025-07-13 06:08] LABS: Chloride 113 mmol/L (98-107)
[2025-07-13 06:09] LABS: Potassium 4.3 mmoL/L (3.5-5.1); Sodium 136 mmol/L (136-145)
[2025-07-13 06:12] LABS: Anion Gap 9.3 mEq/L (5-15); Blood Urea Nitrogen 22 mg/dl (7-17); Calcium 7.3 mg/dl (8.4-10.2); Carbon Dioxide 18 mmol/L (22.0-30.0); Creatinine Clearance Estimated 28 mL/min (50-200); Creatinine,Serum 1.10 mg/dl (0.52-1.04); Estimated Glomerular Filt Rate 47 ml/min (>60); GFR (African American) 57 ML/MIN (>60); Glucose 68 mg/dl (74-100)
[2025-07-13] MEDS: MINERAL OIL ENEMA 133ML 133 ML RC (08:23)
[2025-07-13] MEDS: PANTOPRAZOLE 40MG VIAL 40 MG IV ×2 (08:26→20:01)
[2025-07-13] MEDS: SODIUM CHLORIDE 0.9% 10ML VIAL 10 ML IV (08:26)
--- NOTE | 2025-07-13 09:00 | XR_ITS ---
FINAL REPORT CLINICAL HISTORY: Shortness of breath FINDINGS: A portable view of the chest is obtained. There is no prior exam for comparison. Cardiac and mediastinal silhouettes are normal. Medial left upper lobe opacity and left basilar airspace disease is noted. Pneumonia is not excluded. There is a small left pleural effusion. No pneumothorax. IMPRESSION: Medial left upper lobe opacity and left basilar airspace disease. Pneumonia not excluded. Reviewed, Interpreted and Dictated by Jeannette Stratton MD Transcribed by Irena Narvaez Authenticated and [facility]
--- NOTE | 2025-07-13 09:52 | EXP.CARD.CON ---
History of Present Illness History of Present Illness Consult date: 07/13/25 Requesting physician: Jerome Asencio Chief complaint: weakness History of present illness: Hospitalist note: This is an 84-year-old female who has a past medical history significant for hypertension, atrial fibrillation, and GERD who presents from her primary care physician's office with a concern for GI bleed. Due to patient's symptoms, she presented to the emergency room for evaluation. While in emergency room, patient's hemoglobin was noted to have a 2 g decrease. CTA of the abdomen pelvis revealed large cystic mass on the right kidney, cholelithiasis with mild prominence of the gallbladder/dilation of the common bile duct at 9.8 mm, diffuse pancreatic duct dilation, severe duodenal diverticulum with without evidence of diverticulitis, mild bladder wall thickening concerning for cystitis, and mild nondescript enlargement of the left adrenal gland. Patient's case was discussed with GI specialist who recommended admission for possible endoscopy. As a result of these recommendations, hospital medicine was consulted for further management. Cardiology note: Ms. Susan Dudley is an 84-year-old white female with a past medical history of hypertension and paroxysmal atrial fibrillation who presented to emergency department with complaints of generalized weakness and was found to have a GI bleed. Family at bedside reports that patient was recently found to have paroxysmal atrial fibrillation by PCP Dr. Solares and was started on Eliquis 3-4 months ago. Patient has never been evaluated by cardiology. I am unable to find previous EKGs for review. EKG during this hospitalization is normal sinus rhythm. Patient is currently inpatient and underwent upper GI yesterday which revealed esophageal dysmotility with slightly hypercontractile esophagus, chronic atrophic gastritis/gastric atrophy and mild antral gastropathy and periampullary large duodenal diverticulum. No source of any GI bleed was noted on the upper GI. Colonoscopy is planned for today and pending. Hemoglobin today is 10.5 today after patient was transfused 2 units of PRBC. Cardiology was asked to evaluate for help with DOAC management in the setting of GI bleed. [facility] Disclaimer: The information contained in this section may have been updated after the patient was seen, as this information can be updated by other users. Medical History (Updated 07/13/25 @ 10:00 by Sue Hood APRN) Impacted cerumen of left ear Deviated nasal septum Surgical History History of hip replacement History of bilateral knee replacement Family History (Updated 07/11/25 @ 22:28 by Marielle Palacios RN) Other No significant family history Social History (Updated 07/11/25 @ 22:28 by Marielle Palacios RN) Smoking Status: Never smoker alcohol intake: never substance use type: other current occupational status: retired Travel in the last 8 weeks?: None household members: children housing: house caffeine: No Have you lived/traveled outside US in past 30 days?: No Contact w/someone who lives/traveled outside US past 30 days?: No Exposure to someone with infectious disease in past 14 days?: No Do you have a fever (greater than 100.4 F or 38 C)?: No Have you tested positive for COVID-19?: No Exposed to someone with COVID-19 in past 14 days?: No Do you have a sore throat?: No Do you have a cough?: No Do you have any weakness?: No Do you have any diarrhea?: No Are you experiencing any unusual bleeding?: No Do you have any muscle aches/pain?: No Do you have any abdominal pain?: No Are you experiencing loss of taste or smell?: No Review of Systems Review of Systems Review of systems:: pertinent systems reviewed and negative unless documented below Constitutional Constitutional: Reports weakness *Neurologic Neurologic: Reports system reviewed and no additional complaints, except as documented and Reports weakness Exam Data for Last 24 hours Vital signs and Labs for Last 24 Hours: Temp Pulse Resp BP Pulse Ox O2 Del Method 97.8 F 109 H 16 95/47 L 94 L Room Air 07/13/25 08:00 07/13/25 08:00 07/13/25 08:00 07/13/25 08:00 07/13/25 08:00 07/13/25 08:00 Laboratory Results - last 24 hr 07/11/25 15:55: Blood Type A Positive, Antibody Screen Negative, Crossmatch (AHG) See Detail 07/11/25 18:12: Urine Color Yellow, Urine Appearance Clear, Urine pH 5.5, Ur Specific Bantam 1.010, Urine Protein Negative, Urine Glucose (UA) Negative, Urine Ketones Negative, Urine Blood 1+ A, Urine Nitrate Negative, Urine Bilirubin Negative, Urine Urobilinogen 0.2, Ur Leukocyte Esterase 1+ A, Urine RBC Occasional, Urine WBC 20-50, Ur Squamous Epith Cells 10-20, Urine Bacteria 4+ 07/12/25 05:11: Vitamin B12 201 L, Folate 11.70 07/12/25 15:52: Hgb 10.5 L D, Hct 32.4 L, Vitamin B12 257 07/13/25 05:24: WBC 7.3 D, RBC 3.39 L D, Hgb 10.5 L, Hct 32.0 L, MCV 94.4, MCH 31.0, MCHC 32.8, RDW 15.4, Plt Count 220, MPV 9.5, Neut % (Auto) 83.0 H, Lymph % (Auto) 8.0 L, [place] % (Auto) 8.2, Eos % (Auto) 0.3, Baso % (Auto) 0.1, Neut # (Auto) 6.1, Lymph # (Auto) 0.6 L, [place] # (Auto) 0.6, Eos # (Auto) 0.0, Baso # (Auto) 0.0, Sodium 136, Potassium 4.3, Chloride 113 H, Carbon Dioxide 18 L, Anion Gap 9.3, BUN 22 H D, Creatinine 1.10 H D, Estimated Creat Clear 28, Estimated GFR 47 L, Est GFR ( Amer) 57 L D, Glucose 68 L, Calcium 7.3 L I & O for Last 24 hours: Intake & Output 07/10/25 07/11/25 07/12/25 07/13/25 23:59 23:59 23:59 23:59 Intake Total 1250 / 1370 1800 / 1920 120 / 120 Output Total 0 / 0 0 / 0 Balance 1250 / 1370 1800 / 1920 120 / 120 Weight 103 lb 8 oz 103 lb 9.6 oz 103 lb 9.735 oz Microbiology Reports for the Last 24 Hours: Microbiology 07/11/25 18:12 Urine,Clean Catch Urine Culture - Preliminary Gram Negative Rods Constitutional Constitutional: no acute distress *Routine Respiratory Exam Respiratory: Present CTA bilaterally and symmetric chest movement *Routine Cardiovascular Exam Cardiovascular: Present RRR, Normal S1 and Normal S2 *Routine Abdominal Exam Abdominal: Present soft and normoactive bowel sounds; Absent tenderness *Routine Extremities Exam Extremities: Present full ROM and normal capillary refill; Absent edema *Routine Skin Exam Skin: Present intact, dry and warm Detailed Neck Exam: Thyroids Thyroid: Absent bruit Meds Home Medications and Allergies Home Medications ?Medication ?Instructions ?Recorded ?Confirmed ?Type furosemide 40 mg tablet 40 mg PO DAILY 10/02/21 07/12/25 History hydrocodone 7.5 mg-acetaminophen 1 tab PO Q6H 08/13/22 07/12/25 History 325 mg tablet apixaban 2.5 mg tablet (Eliquis) 2.5 mg PO BID 07/12/25 07/12/25 History metoprolol tartrate 25 mg tablet 12.5 mg PO BID 07/12/25 07/12/25 History spironolactone 25 mg tablet 25 mg PO BID 07/12/25 07/12/25 History New Prescriptions to Start Prescriptions: Allergies Allergy/AdvReac Type Severity Reaction Status Date / Time Sfxyybb-XMS-LdC Reductase Allergy Severe S-SWELLS-OR Verified 08/13/22 12:54 Inhibitor (Ohfmztn-Xxv-Ayz AL/THROAT Reductase Inhibitor) NSAIDS (Non-Steroidal Allergy Unknown ULCERS Verified 08/13/22 12:54 Anti-Inflamma Assessment and Plan *Assessment and plan (1) Positive occult stool blood test: Status: Acute Category: Medical Code(s): R19.5 - Other fecal abnormalities (2) Anemia due to blood loss, acute: Status: Acute Category: Medical Code(s): D62 - Acute posthemorrhagic anemia (3) GI bleed: Status: Acute Category: Medical Code(s): K92.2 - Gastrointestinal hemorrhage, unspecified (4) Paroxysmal atrial fibrillation: Status: Acute Category: Medical Code(s): I48.0 - Paroxysmal atrial fibrillation Plan Reported history of of paroxysmal atrial fibrillation Anemia due to blood loss Acute GI bleed Positive occult stool blood test Patient has been in normal sinus rhythm during this hospital admission There are no previous EKGs for review to see if patient has episodes of PAF Recommend holding Eliquis in the setting of acute GI bleed. Would only restart once A-fib has been noted and is cleared by GI. Recommend sending patient home in a 2-week event monitor to further evaluate for A-fib If A-fib is present should consider watchman's device for management CV summary 07/13/2025: Colonoscopy is pending. Recommend patient be discharged home in a 2-week event monitor to evaluate for A-fib. If A-fib is identified then should consider watchman's device for management in the setting of GI bleed.
[2025-07-13] MEDS: CEFTRIAXONE 1 GM 1 GM in 0.9 % SODIUM CHLORIDE 50 ML IV (12:29)
--- NOTE | 2025-07-13 12:43 | CA_ITS ---
APPROVED REPORT EXAM: Comprehensive 2D, Doppler, and color-flow Echocardiogram Credit Intern: Naomi March RVT Ht: 4 ft 11 in Wt: 103lbs BSA: 1.39 BP: 95/47 mmHg Indications: Congestive Heart Failure 2D Dimensions LA Volume 28.80 mL LA Volume Index 20.72 mL/m2 (M/F) 16-34 M-Mode Dimensions RVDd 3.11 cm (0.9-2.6) LA Diam 3.85 cm (1.9-4.0) LVDd 3.80 cm (3.5-5.7) LVDs 1.94 cm (3.5-5.7) IVSd 1.14 cm (0.6-1.1) PWd 0.83 cm (0.6-1.1) EF (Teich) 81.00% FS 48.90% EDV (Teich) 62.00 mL TAPSE 2.04 (<1.7) ESV (Teich) 11.80 mL LV Diastology E Decel Time 213 (160-240 msec) E/A Ratio 0.9 Aortic Valve JORDAN Index 1.94 cm2/m2 AoV Peak Levon. 121.0 (50-130 cm/s) AO Peak GR. 5.90 mmHg AO Mean GR. 3.30 (<5 mmHg) AO VTI 26.0 (18-25 cm) JORDAN (VTI) 2.76 (2.5-4.5 cm2) Mitral Valve MV E Max Levon. 89.0 (40-130 cm/s) MV A Velocity 101.0 (40-130 cm/s) E/A Ratio 0.88 MV PHT 62.0 ms Pulmonary Valve PV Peak Velocity 58.0 (50-150 cm/s) Tricuspid Valve TR P. Velocity 244.00 cm/s RAP Estimate 10.00 mmHg RVSP 33.80 mmHg Left Ventricle The left ventricle is normal size. Left ventricular systolic function is normal. The left ventricular ejection fraction is within the normal range. There is increased left ventricular wall thickness. There is normal LV segmental wall motion. Transmitral Doppler flow pattern suggests impaired LV relaxation. LVEF is 55% Right Ventricle The right ventricle is mildly to moderately dilated. The right ventricular systolic function is normal. Atria The left atrium is mildly dilated. The right atrium is mildly dilated. There is no color Doppler evidence of interatrial shunt. Aortic Valve The aortic valve is mildly thickened. There is no hemodynamically significant aortic valvular stenosis. Trace aortic regurgitation is present. Mitral Valve The mitral valve is normal in structure. No evidence of mitral valve stenosis. Mild mitral regurgitation is present. Tricuspid Valve The tricuspid valve leaflets are thin and pliable. Mild tricuspid regurgitation. RVSP is 25-30 mmHg. Pulmonic Valve The pulmonary valve is grossly normal in structure. Trace pulmonic valve regurgitation is present. Great Vessels The aortic root is normal in size. IVC is normal in size and collapses >50% with inspiration. Pericardium There is no pericardial effusion. Other Information Study Quality: Technically Difficult Conclusion Technically difficult study. Normal LV systolic function. Mild to moderate RV dilation with normal RV function. Biatrial dilation. Mild MR, mild TR. Electronically signed by : Zeenat Esteban MD 07/13/2025 22:24:01
--- NOTE | 2025-07-13 12:43 | US_ITS ---
FINAL REPORT TECHNIQUE: Sonographic images of the right upper quadrant were obtained. CLINICAL HISTORY: bile duct dilation COMPARISON: CT dated 07/11/2025 FINDINGS: PANCREAS: Visualized pancreas is unremarkable. LIVER: Homogeneous. No focal hepatic lesion. No intrahepatic biliary ductal dilatation. Portal vein is unremarkable. GALLBLADDER: There is sludge and stones in the gallbladder with mildly thickened wall measuring 4 mm. There is no pericholecystic fluid. COMMON DUCT: 6 mm. Normal for age. RIGHT KIDNEY: The right kidney measures 13.9 cm. Upper pole mass measures approximately 8.6 cm. FREE FLUID: None. IMPRESSION: Sludge and stones in the gallbladder with mild wall thickening, cholecystitis is not excluded. Common duct is normal for age. Upper pole right renal mass is much better evaluated than prior CT. Reviewed, Interpreted and Dictated by Jeannette Stratton MD Transcribed by Emma Driver Authenticated and [facility]
[2025-07-13] MEDS: PIPERACILLIN/TAZO 3.375 GM in 0.9 % SODIUM CHLORIDE 50 ML IV ×2 (13:26→20:01)
--- NOTE | 2025-07-13 13:57 | HMH.OTEV ---
OT Inpatient Evaluation Rehab OT IP Evaluation Start: 07/12/25 10:46 Freq: ONCE Status: Active Protocol: Document 07/13/25 13:53 [email or web address] (Rec: 07/13/25 13:57 [facility] [id number]) Rehab OT IP Assessment Subjective History Pt oriented x 2 on arrival. Pt agreeable to engage in therapy evaluation. Pt admitted on 07/12/25 due to GI bleed. History and physical: Mrs. Dudley is an 84-year-old female who is here for diagnostic upper endoscopy. She was admitted for symptomatic anemia and Hemoccult positive stool. The patient was sent from her PCP office because of a concern for GI bleed. The patient did have a drop in her hemoglobin and hematocrit. In August 2021 her hemoglobin hematocrit were 14.0 and 44.0. Earlier this morning, her hemoglobin hematocrit were 6.3 and 20.3 with normocytic indices (MCV 97.6). Her iron saturation was 13.8% with serum iron 25 and ferritin 14 .2. She did have a CT scan of the abdomen and pelvis that showed a large heterogeneous hyperenhancing complex cystic solid mass in the superior right kidney concerning for malignancy. She also had some gallstones with mild prominence of the gallbladder as well as common bile duct dilation mildly to 9.8 mm. There was some diffuse pancreatic ductal dilation. There was also mild proximal gastric mural thickening that could be incomplete distention. The patient reports no melena, hematochezia or bright red blood per rectum. She does have a prior history of a bleeding duodenal ulcer diagnosed by James Torres M.D. 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 The patient reports no abdominal pain, dysphagia, heartburn or dyspepsia. She has had no hematemesis. The patient does have a history of atrial fibrillation and was started on Eliquis a few months ago. The patient has never had a colonoscopy. Subjective Prior to being in the hospital, pt lived with her daughter. Pt reports normally she is independent with ADLs (dressing, bathing, and feeding); daughter present and agreeable. Pt's daughter completes all IADLs. Pt is normally able to complete short functional transfers with rolling walker; pt no longer drives. Objective Patient Orientation Person,Birthday Right Upper Min Limitation <25% Extremity Gross ROM Left Upper Extremity Min Limitation <25% Gross ROM Shoulder ROM Muscle Weakness Limitations Elbow ROM Muscle Weakness Limitations Wrist Limitations of Muscle Weakness Range of Motion Bed Mobility bed mobility-scooting,bed mobility - supine/sit Assist Level Moderate x 2 (50% assist) Rehab OT IP prob,goals,plan Problems Date of Evaluation: 07/13/25 OT IP Problems Bed Mobility,Transfers,Balance,Self care,Safety Rehab Potential Rehab Potential Good Equipment Needs Assistive Devices Rolling / Wheeled Walker Plan OT intervention Plan Bed Mobility,Transfers,Balance,Self care,Safety, Therapeutic Exercise OT Plan Frequency Daily Duration LOS Discharge Goals Bed Mobility Ability Assistance x1 Sit to Stand Chair Moderate x 1 (50% assist) Transfer Ability Chair Transfer Moderate x 1 (50% assist) Ability Chair Transfer Sit to/from Ambulatory Technique Chair Transfer Rolling Walker Assistive Devices Lower Body Dressing Moderate Assistance Ability Upper Body Dressing Contact Guard Ability Performing Toilet Moderate Assistance Hygiene Ability Overall Commode/ Moderate Assistance Toilet Transfer Ability Commode/Toilet Sit to/from Ambulatory Transfer Technique Discharge Plan OT Discharge Plan Pt will continue to be seen for OT services while at [facility]. Pt would benefit most from short term rehab at [facility] following discharge from hospital. However, if pt improves during stay she could possibly return home with [facility] 08/06 assistance. If she were to return home, therapist recommends OT evaluation. Continued skilled therapy is important in order to increased strength, safety, endurance, ADL independence, and functional transfers to reach PLOF. Eval Complexity Eval Charge Codes 82927 - Moderate Complexity PHYSICIAN CERTIFICATION: I certify the specified therapy services for Susan Dudley are required, authorized, and reviewed every 30 days.
--- NOTE | 2025-07-13 14:42 | P.PN_ITS ---
Subjective *Date: 07/13/25 *Time: 14:42 Interval history: Patient doing well this morning, daughter and family member at bedside. She is currently working on bowel preparation for colonoscopy. EGD yesterday was benign. Hemoglobin stable today at 10.5. Patient states she feels well over all. Urine culture came back positive for ESBL, transition to Zosyn every 6 hours IV. Medical Exam Vital signs and Labs for Last 24 Hours: Vital Signs Temp Pulse Pulse Resp BP Pulse Ox O2 Del Method 07/13/25 14:15 97.7 F 88 17 99/61 L 96 Room Air 07/13/25 13:00 Room Air 07/13/25 12:00 90 07/13/25 11:41 97.7 F 88 17 99/61 L 96 Room Air 07/13/25 11:00 Room Air 07/13/25 09:00 Room Air 07/13/25 08:00 110 H 07/13/25 08:00 Room Air 07/13/25 08:00 97.8 F 109 H 16 95/47 L 94 L Room Air 07/13/25 06:28 Room Air 07/13/25 05:00 Room Air 07/13/25 04:00 90 07/13/25 04:00 97.6 F 108 H 16 112/55 L 95 Room Air 07/13/25 03:00 Room Air 07/13/25 01:00 Room Air 07/13/25 00:00 100 H 07/13/25 00:00 97.6 F 101 H 16 96/51 L 97 Room Air 07/12/25 22:45 Room Air 07/12/25 21:00 Room Air 07/12/25 20:00 Room Air 07/12/25 20:00 96.6 F L 105 H 18 131/71 99 Room Air 07/12/25 20:00 90 07/12/25 18:44 Room Air 07/12/25 17:00 Room Air 07/12/25 16:15 97.9 F 83 17 98/52 L 98 Room Air 07/12/25 16:00 98.1 F 81 17 104/52 L 98 Room Air 07/12/25 15:45 98.3 F 87 17 99/53 L 98 Room Air 07/12/25 15:30 98.1 F 91 H 16 99/50 L 97 Room Air 07/12/25 15:04 97.6 F 98 H 17 103/57 L 99 Room Air 07/12/25 15:00 Room Air 07/12/25 14:56 97.6 F 95 H 17 104/56 L 99 Room Air 07/12/25 14:46 97.6 F 96 H 16 103/54 L 98 Room Air Intake and Output 07/12/25 07/13/25 07/13/25 23:59 07:59 15:59 Intake Total 430 / 1920 120 / 1003.333 883.333 / 1003.333 Output Total 0 / 0 0 / 0 0 / 0 Balance 430 / 1920 120 / 1003.333 883.333 / 1003.333 Intake: Intake, Oral Amount 270 / 510 120 / 120 Intake, Total IV Amount 160 / 1160 883.333 / 883.333 Ceftriaxone 1 gm 1 gm In 0.9 % 50 / 50 Sodium Chloride 50 ml @ 100 mls /hr IV Q24H [facility] Rx#:[id number] Iron Sucrose Complex 200 mg In 110 / 110 0.9 % Sodium Chloride 100 ml @ 220 mls/hr IV ONCE ONE Rx#: [id number] Lactated Ringers 1000ML 1,000 883.333 / 883.333 ml @ 100 mls/hr IV .Q10H [facility] Rx #:[id number] Output: Output, Urine Amount 0 / 0 0 / 0 0 / 0 Other: Number of Unmeasured Voids 1 1 1 Number of Bowel Movements 1 1 1 Weight 46.996 kg Patient Weight 07/13/25 23:59 Weight 46.996 kg Laboratory Results - last 24 hr 07/12/25 05:11: Vitamin B12 201 L, Folate 11.70 07/12/25 15:52: Hgb 10.5 L D, Hct 32.4 L, Vitamin B12 257 07/13/25 05:24: WBC 7.3 D, RBC 3.39 L D, Hgb 10.5 L, Hct 32.0 L, MCV 94.4, MCH 31.0, MCHC 32.8, RDW 15.4, Plt Count 220, MPV 9.5, Neut % (Auto) 83.0 H, Lymph % (Auto) 8.0 L, [place] % (Auto) 8.2, Eos % (Auto) 0.3, Baso % (Auto) 0.1, Neut # (Auto) 6.1, Lymph # (Auto) 0.6 L, [place] # (Auto) 0.6, Eos # (Auto) 0.0, Baso # (Auto) 0.0, Sodium 136, Potassium 4.3, Chloride 113 H, Carbon Dioxide 18 L, Anion Gap 9.3, BUN 22 H D, Creatinine 1.10 H D, Estimated Creat Clear 28, Estimated GFR 47 L, Est GFR ( Amer) 57 L D, Glucose 68 L, Calcium 7.3 L I & O for Labs for Last 24 Hours: Intake & Output 07/10/25 07/11/25 07/12/25 07/13/25 23:59 23:59 23:59 23:59 Intake Total 1250 / 1370 1800 / 1920 1003.333 / 1003.333 Output Total 0 / 0 0 / 0 Balance 1250 / 1370 1800 / 1920 1003.333 / 1003.333 Weight 46.947 kg 46.992 kg 46.996 kg Microbiology Reports for the Last 24 Hours: Microbiology 07/11/25 18:12 Urine,Clean Catch Urine Culture - Final Escherichia coli Constitutional: Present no acute distress and cooperative Head: Present atraumatic Eyes: Present as per HPI ENT: Present normal exam Neck: Present normal inspection and full ROM Respiratory: Present CTA bilaterally, normal respiratory effort, able to speak in complete sentences and symmetric chest movement; Absent wheezes or crackles Cardiac: Present Reg Rate and Rhythm and No Murmur GI: Present soft, distention, tenderness and hyperactive bowel sounds Rectal (female): Present deferred (female): Present deferred Extremities: Present normal inspection, full ROM and normal capillary refill; Absent edema Skin: Present intact and dry; Absent erythema or rash Neuro: Present Weakness, alert, awake, oriented x 3 and moves all extremities Assessment and Plan *Assessment and plan (1) GI bleed: Status: Acute Qualifiers: GI bleed type/associated pathology: unspecified gastrointestinal hemorrhage type Qualified Code(s): K92.2 - Gastrointestinal hemorrhage, unspecified Category: Medical Code(s): K92.2 - Gastrointestinal hemorrhage, unspecified (2) Hyperkalemia: Status: Acute Category: Medical Code(s): E87.5 - Hyperkalemia (3) EYAL (acute kidney injury): Status: Acute Category: Medical Code(s): N17.9 - Acute kidney failure, unspecified (4) Adrenal abnormality: Status: Acute Category: Medical Code(s): E27.9 - Disorder of adrenal gland, unspecified (5) Metabolic acidosis: Status: Acute Category: Medical Code(s): E87.20 - Acidosis, unspecified (6) UTI (urinary tract infection): Status: Acute Qualifiers: Urinary tract infection type: site unspecified Hematuria presence: without hematuria Qualified Code(s): N39.0 - Urinary tract infection, site not specified Category: Medical Code(s): N39.0 - Urinary tract infection, site not specified Plan Ms. Dudley is an 84-year-old female who presented to the emergency department Thursday due to anemia found at her PCPs office. Patient was recently put on Eliquis due to new onset A-fib at approximately 3 to 4 months ago. Patient does complain of tiring easily and generalized weakness. Patient does deny black/bloody stool, coffee-ground emesis. She does have a primary medical history of degenerative arthritis, paroxysmal A-fib, GERD, hypertension, and CHF. Workup in the emergency room revealed low hemoglobin of 8.3, hyperkalemia of 5.8, elevated creatinine 1.8. Fecal occult stool positive CTA of patient's chest reveals mass occupying the superior right kidney, worrisome for malignancy. Additionally it reveals cholelithiasis of the gallbladder with a bile duct dilation measuring 9.[address] Padilla was consulted from the emergency department where he recommended admission and upper endoscopy. Hospital medicine agreed to admit the patient for further assessment and workup, plan of care as follows: #Anemia #GI bleed, suspected ? Hemoglobin dropped to 6.3, patient received 2 units PRBCs on admission, hemoglobin stable at 10.5. ? Patient underwent upper endoscopy yesterday, no evidence of bleeding noted. Colonoscopy planned for this afternoon. ? Cardiology consulted, recommendations to hold Eliquis. Patient currently in NSR. Cardiology recommends 2-week event monitor to further evaluate A-fib. Pending Holter monitor report consider watchman's device for management of A- fib. ?Patient receiving Protonix 40 mg IV twice daily, received Venofer IV transfusion yesterday. #CHF #Paroxysmal A-fib ? Holding metoprolol 12.5 mg twice daily, Lasix 40 mg daily, spironolactone 25 mg twice daily due to soft blood pressures. ? Patient prescribed Lasix 40 mg daily and spironolactone 25 mg twice daily for history of CHF, was unable to find a previous echo. Echo pending at this time. #Acute kidney injury, improved ? Creatinine improved from 1.8 to 1.1 today, continuing to monitor. ?Continue to avoid nephrotoxic drugs. #Right kidney mass ? Concerning for malignancy, will need outpatient referral to urology. #Bile duct dilation #Cholelithiasis ? Patient denies abdominal pain. Patient has been n.p.o. except for bowel prep. Right upper quadrant sound pending. #UTI ? UA grossly abnormal, patient having urinary frequency. ? Patient urine culture positive ESBL, sensitive to Zosyn. Stop Rocephin daily, initiate Zosyn 3.375 mg every 6 hour. DNI Up with assistance N.p.o. except for bowel prep VTE?SCDs
--- NOTE | 2025-07-13 14:48 | P.PNANES_ITS ---
[facility] Disclaimer: The information contained in this section may have been updated after the patient was seen, as this information can be updated by other users. Medical History (Updated 07/13/25 @ 10:00 by Sue Hood APRN) Impacted cerumen of left ear Deviated nasal septum Surgical History History of hip replacement History of bilateral knee replacement Family History (Updated 07/11/25 @ 22:28 by Marielle Palacios RN) Other No significant family history Social History (Updated 07/11/25 @ 22:28 by Marielle Palacios RN) Smoking Status: Never smoker alcohol intake: never substance use type: other current occupational status: retired Travel in the last 8 weeks?: None household members: children housing: house caffeine: No Have you lived/traveled outside [place] in past 30 days?: No Contact w/someone who lives/traveled outside US past 30 days?: No Exposure to someone with infectious disease in past 14 days?: No Do you have a fever (greater than 100.4 F or 38 C)?: No Have you tested positive for COVID-19?: No Exposed to someone with COVID-19 in past 14 days?: No Do you have a sore throat?: No Do you have a cough?: No Do you have any weakness?: No Do you have any diarrhea?: No Are you experiencing any unusual bleeding?: No Do you have any muscle aches/pain?: No Do you have any abdominal pain?: No Are you experiencing loss of taste or smell?: No [facility] Anesthesia Checklist Patient Identification Patient Identification: Arm Band and Family Structural Data Admitted From: Home Planned Operative Procedure/s: Colonoscopy Consent for Planned Operative Procedure(s) Verified: Yes Verified Documents: Surgical Consent and History and Physical NPO Status Verified Time NPO: 00:00 Additional verifications Patient : No Anesthesia Reactions: No Hx Blood Transfusions: Yes Blood Transfusion Reaction: No Cephalosporin Allergy: No Previous Colonoscopy: No Airway Assessment Mallampati Score:: Class I C-Spine Mobility Assessed: Yes TMJ Mobility Assessed: Yes Neurological Assessment Level of Consciousness: Awake, Alert, Appropriate and Follows Commands Hx Seizures: No Numbness or tingling in extremities: No Anesthesia Plan Anesthesia Risk discussed: Yes ASA Class: III Anesthesia Type: MAC Preoperative Comments Pre-Operative Comments: Advanced age. Hypertension and low blood pressure at times. anemia.
--- NOTE | 2025-07-13 14:51 | P.PCN_ITS ---
[facility] Procedure Note Date: 07/13/25 Time: 15:17 Procedure Note:: Colonoscopy Procedure Report: Colonoscopy with cold biopsies and submucosal injection (spot ink tattoo) Endoscopist: Tanner Padilla II, MD Referring physician: Hayder Wheeler M.D. Date of Procedure: July 13, 2025 Equipment: Olympus [id number] adult colonoscope Sedation: MAC sedation Indication: Mrs. Dudley is an 84-year-old female who is here for diagnostic colonoscopy secondary to iron deficiency anemia and Hemoccult positive stool. Her EGD yesterday did show some chronic atrophic gastritis but did not show any source of GI bleeding. The patient was originally sent from her PCP office because of a concern for GI bleed. The patient did have a drop in her hemoglobin and hematocrit. In August 2021 her hemoglobin hematocrit were 14.0 and 44.0. Yesterday morning, her hemoglobin hematocrit were 6.3 and 20.3 with normocytic indices (MCV 97.6). Her iron saturation was 13.8% with serum iron 25 and ferritin 14.2. The patient did receive blood products and today her hemoglobin and hematocrit are stable at 10.5 and 32.0. She did have a CT scan of the abdomen and pelvis that showed a large heterogeneous hyperenhancing complex cystic solid mass in the superior right kidney concerning for malignancy. She also had some gallstones with mild prominence of the gallbladder as well as common bile duct dilation mildly to 9.8 mm. There was some diffuse pancreatic ductal dilation. There was also mild proximal gastric mural thickening that could be incomplete distention. The patient reports no melena, hematochezia or bright red blood per rectum. The patient does have a history of atrial fibrillation and was started on Eliquis a few months ago. The patient has never had a colonoscopy. Procedure: Prior to the procedure, a history and physical exam was performed, and patient's medications and allergies were reviewed. The risks, benefits and alternatives of the sedation and procedure were discussed with the patient. All questions were answered and informed consent was obtained. The patient was brought to the procedure room. Patient identification and proposed procedure were verified by the physician and the nurse. The patient was placed in a left lateral decubitus position and the scope was passed under direct vision. Throughout the procedure, the patient's blood pressure, pulse, and oxygen saturations were monitored continuously. The colonoscopy was accomplished without difficulty. The patient tolerated the procedure well. Findings: On digital rectal examination there was normal to reduced rectal tone. There were no external hemorrhoids. The colonoscope was introduced through the anal canal to the rectum and advanced to the cecum. The ileocecal valve and appendiceal orifice were identified. The scope was advanced a short distance into the ileum which appeared grossly normal. The scope was then withdrawn into the colon. The cecum was normal. Within the mid ascending colon closer to the hepatic flexure was a large hemiferential friable, fungating, partially ulcerate d malignant mass lesion that encompassed 50 to 60% of the circumference. Multiple biopsies were obtained from the margins and center of the mass. After the biopsies, the cancer was tattooed using spot ink tattoo and 10 mL was injected submucosally. The remainder of the transverse colon was normal. There were scattered diverticuli in the descending and sigmoid colon. Within the rectum there were grade 1 internal hemorrhoids. Impression: 1. 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 Left-sided diverticulosis Plan: I will follow-up the biopsies and perhaps this is contiguous with the right kidney mass. I am going to send the patient to oncology (Ángel Mahoney MD). I will obtain CEA and tumor markers. This is certainly the etiology of her occult GI bleeding, Hemoccult positive stool and iron deficiency.
--- NOTE | 2025-07-13 15:39 | SW/DCPLANNER ---
Addendum entered by Brie Rivas RN 07/14/25 14:07: W/C order and clinical faxed to [facility]. W/C will be delivered to patient's room prior to discharge. Addendum entered by Whit Garibay 07/14/25 11:17: [facility] has accepted patient for home health services. Addendum entered by Shannon Ortega 07/14/25 08:26: I spoke w/ patient and her daughter regarding discharge plans. Per daughter they are NOT interested in placement at this time. Patient resides at home w/ two daughter and prefers to return home. Patient/family are agreeable to home health services ([facility]) and have requested a wheelchair from [facility]. CM will continue to follow up w/ patient and family regarding discharge, set up home health services and order DME. Discharge date is unknown at this time. Original Note: Therapy evaluated patient and recommended SNF level of care. I attempted to speak w/ patient regarding placement but patient is down for procedure at this time. I will continue to follow up.
[2025-07-13] MEDS: HYDROCODONE/APAP 5/325 MG TABLET 1 TAB PO (16:42)
--- NOTE | 2025-07-13 17:45 | PC.NURSE ---
patient is a/o x4 and remains on room air. patient had colonoscopy this shift, VSS. barrier cream applied to coccyx due to redness, Q2 turns. patient is tolerating PO fluids, IV fluids d/c per [employer]. patient c/o lower back pain once she arrived to the floor from post op, treated per JAN. patient is currently sitting up in bed eating dinner. no complaints at this time, call light within reach.
[2025-07-14] VITALS: BP 99/58; PULSE 101; PULSE 90; RESP 16; TEMP 36.7; O2SAT 97
[2025-07-14] MEDS: PIPERACILLIN/TAZO 3.375 GM in 0.9 % SODIUM CHLORIDE 50 ML IV ×2 (01:06→06:09)
--- NOTE | 2025-07-14 02:01 | PC.NURSE ---
Pt AOx4. [place]. Pleasant. No acute changes. VSS. Resting in bed with eyes open. Denies pain or any additional needs at this time. Bed is low, locked, and call light is in reach.
[2025-07-14] MEDS: HYDROCODONE/APAP 5/325 MG TABLET 1 TAB PO ×2 (02:53→08:50)
[2025-07-14 04:00] VITALS: BP 108/64; PULSE 100; PULSE 103; RESP 16; TEMP 37.5; O2SAT 96; BMI 22.1
[2025-07-14] MEDS: ACETAMINOPHEN 325MG TAB 650 MG PO (05:04)
[2025-07-14 06:47] LABS: Hematocrit 31.3 % (37.0-47.0); Hemoglobin 10.1 g/dL (12.2-16.2); Immature Granulocytes % 0.5 %; Mean Corpuscular HGB Conc 32.3 g/dL (31.8-35.4); Mean Corpuscular Hemoglobin 30.2 pg (27.0-31.2); Mean Corpuscular Volume 93.7 fl (81-99); Nucleated Red Blood Cells % 0 %; Platelet Count 222 K/mm3 (142-424); Red Blood Count 3.34 M/mm3 (4.20-5.40); Red Cell Distribution Width-SD 53.1 fL; White Blood Count 6.2 K/mm3 (4.8-10.8)
[2025-07-14 06:57] LABS: Chloride 113 mmol/L (98-107); Potassium 3.9 mmoL/L (3.5-5.1); Sodium 134 mmol/L (136-145)
[2025-07-14 07:00] LABS: Anion Gap 4.9 mEq/L (5-15); Blood Urea Nitrogen 16 mg/dl (7-17); Carbon Dioxide 20 mmol/L (22.0-30.0); Creatinine,Serum 1.20 mg/dl (0.52-1.04); Estimated Glomerular Filt Rate 43 ml/min (>60); GFR (African American) 52 ML/MIN (>60); Glucose 72 mg/dl (74-100)
[2025-07-14 07:01] LABS: Calcium 7.6 mg/dl (8.4-10.2)
[2025-07-14 07:29] LABS: Creatinine Clearance Estimated 28 mL/min (50-200)
[2025-07-14 08:00] VITALS: BP 104/58; PULSE 110; PULSE 113; RESP 16; TEMP 36.4; O2SAT 97
[2025-07-14 08:32] LABS: Albumin Level 1.7 g/dl (3.5-5.0)
[2025-07-14 08:35] LABS: Alanine Aminotransferase 11 U/L (12-78); Alkaline Phosphatase 105 U/L (38-126); Aspartate Amino Transferase 24 U/L (14-36); Bilirubin,Direct 0.1 mg/dl (0.0-0.4); Bilirubin,Indirect 0.4 mg/dL (0.0-0.9); Bilirubin,Total 0.5 mg/dl (0.2-1.3); Bilirubin,Unconjugated 0.3 mg/dL (0.0-1.1); Total Protein,Serum 4.1 g/dl (6.3-8.2)
[2025-07-14] MEDS: SODIUM CHLORIDE 0.9% 10ML VIAL 10 ML IV (08:42)
[2025-07-14] MEDS: PANTOPRAZOLE 40MG VIAL 40 MG IV (08:42)
--- NOTE | 2025-07-14 09:42 | ECG_ITS ---
APPROVED REPORT Exam: Resting ECG HR:104 bpm ECG Measurements Heart Rate 104 AXES SC 142 P 48 QRSd 70 QRS -30 QT 340 T 101 QTc 400 Conclusion SINUS TACHYCARDIA WITH FREQUENT SUPRAVENTRICULAR PREMATURE COMPLEXES LOW QRS VOLTAGE [QRS DEFLECTION < 0.5/1.0 mV IN LIMB/CHEST LEADS] INFERIOR MYOCARDIAL INFARCTION , PROBABLY OLD [40+ ms Q WAVE AND/OR ST/T ABNORMALITY IN II/aVF] ANTEROSEPTAL MYOCARDIAL INFARCTION , PROBABLY OLD [40+ ms Q WAVE IN V1-V4] ABNORMAL ECG UNCONFIRMED REPORT Electronically signed by : Hayder Wheeler MD 07/14/2025 11:57:44
--- NOTE | 2025-07-14 09:51 | HMH.PTEV ---
Physical Therapy Evaluation Rehab PT IP Evaluation Start: 07/12/25 10:46 Freq: ONCE Status: Active Protocol: Document 07/14/25 09:47 IRAIS (Rec: 07/14/25 09:51 IRAIS [id number]) Subjective/History History History Per H&P: Mrs. Dudley is an 84-year-old female who is here for diagnostic upper endoscopy. She was admitted for symptomatic anemia and Hemoccult positive stool. The patient was sent from her PCP office because of a concern for GI bleed. The patient did have a drop in her hemoglobin and hematocrit. In August 2021 her hemoglobin hematocrit were 14.0 and 44.0. Earlier this morning, her hemoglobin hematocrit were 6.3 and 20.3 with normocytic indices (MCV 97.6). Her iron saturation was 13.8% with serum iron 25 and ferritin 14 .2. She did have a CT scan of the abdomen and pelvis that showed a large heterogeneous hyperenhancing complex cystic solid mass in the superior right kidney concerning for malignancy. She also had some gallstones with mild prominence of the gallbladder as well as common bile duct dilation mildly to 9.8 mm. There was some diffuse pancreatic ductal dilation. There was also mild proximal gastric mural thickening that could be incomplete distention. The patient reports no melena, hematochezia or bright red blood per rectum. She does have a prior history of a bleeding duodenal ulcer diagnosed by James Torres M.D. 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 The patient reports no abdominal pain, dysphagia, heartburn or dyspepsia. She has had no hematemesis. The patient does have a history of atrial fibrillation and was started on Eliquis a few months ago. The patient has never had a colonoscopy. Subjective Subjective Prior to being in the hospital, pt lived with her daughter. Pt reports normally she is independent with ADLs (dressing, bathing, and feeding); daughter present and agreeable. Pt normally IND with household ambulation using a RW. Pt's daughter completes all IADLs. Pt no longer drives. New diagnosis of No cancer in past 12 months? [facility] How much help from another person do you currently need... Turning from your A little back to your side while in a flat bed without using bedrails? Moving from lying on A little back to sitting on the side of a flat bed without using bedrails? Moving to and from a A little bed to a chair ( including a wheelchair)? Standing up from a A little chair using your arms? (e.g., wheelchair, bedside chair) Walking in hospital A little room? Climbing 3-5 steps A little with a railing? Mobility Score 18 Mobility Level [facility] Mobility 6 Walk 10 steps or more Mobility Calculator Rehab PT IP Eval Objective Appearance Patient Behavior Appropriate,Cooperative Patient Orientation Person,Situation Difficulty following none instructions Speech Pattern Clear Ambulation Patient Able to Yes Ambulate Ambulation Observation IP General Gait Narrow Based Gait Pattern Observation Ambulation Distance 7 (feet) Ambulation Assistive Rolling Walker Device Ambulation Ability Supervision/Stand by,Contact Guard/Hand Hold Balance Ability to Arise Able, uses arms to help Sitting Balance Steady, safe Standing Balance Steady, wide stance Dynamic Sitting Good Balance Ability Dynamic Standing Fair Balance Ability Transfers Bed Transfer Ability Minimal x 1 (25% assist) Sit to Stand Bed Contact Guard/Hand Hold Transfer Ability Rehab PT IP prob,goals,plan Problems Date of Evaluation: 07/14/25 PT IP Problems Bed Mobility,Transfers,Gait,Balance,Self care,Safety Rehab Potential Rehab Potential Good Plan PT Intervention Plan Bed Mobility,Transfers,Gait,Balance,Self care,Safety, Therapeutic Exercise Other Intervention 1-2 times Plan PT Plan Frequency Daily Duration LOS Discharge Goals Bed Transfer Ability Independent Sit to Stand Chair Independent Transfer Ability Ambulation Assistive Rolling Walker Device Ambulation Distance 40 (feet) Discharge Plan PT Discharge Plan Pt presents below her baseline in functional mobility. Pt able to demo short household ambulation using a RW and functional EOB>recliner transfer with CGA. Pt most appropriate to d/c home with 24/7 care provided by family. Pt would benefit from skilled acute care PT to address deficits. Eval Complexity Eval Charge Codes 30550 - Moderate Complexity PHYSICIAN CERTIFICATION: I certify the specified therapy services for Susan Dudley are required, authorized, and reviewed every 30 days.
--- NOTE | 2025-07-14 10:40 | P.DS_ITS ---
<Statement entered by Jerome Asencio MD - 07/15/25 15:13> Personally evaluated patient and agree with plan of care as outlined by the PROPERTY MAINTENANCE SUPERVISOR. General Admission date:: 07/12/25 Discharge date: 07/14/25 HPI HPI HPI: Mrs. Dudley is an 84-year-old female who is here for diagnostic upper endoscopy. She was admitted for symptomatic anemia and Hemoccult positive stool. The patient was sent from her PCP office because of a concern for GI bleed. The patient did have a drop in her hemoglobin and hematocrit. In August 2021 her hemoglobin hematocrit were 14.0 and 44.0. Earlier this morning, her hemoglobin hematocrit were 6.3 and 20.3 with normocytic indices (MCV 97.6). Her iron saturation was 13.8% with serum iron 25 and ferritin 14.2. She did have a CT scan of the abdomen and pelvis that showed a large heterogeneous hyperenhancing complex cystic solid mass in the superior right kidney concerning for malignancy. She also had some gallstones with mild prominence of the gallbladder as well as common bile duct dilation mildly to 9.8 mm. There was some diffuse pancreatic ductal dilation. There was also mild proximal gastric mural thickening that could be incomplete distention. The patient reports no melena, hematochezia or bright red blood per rectum. She does have a prior history of a bleeding duodenal ulcer diagnosed by James Torres M.D. 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 The patient reports no abdominal pain, dysphagia, heartburn or dyspepsia. She has had no hematemesis. The patient does have a history of atrial fibrillation and was started on Eliquis a few months ago. The patient has never had a colonoscopy. Hospital Course Hospital Course Hospital Course: Ms. Dudley is an 84-year-old female who presented to the emergency department Thursday due to anemia found at her PCPs office. Patient was recently put on Eliquis due to new onset A-fib at approximately 3 to 4 months ago. Patient does complain of tiring easily and generalized weakness. Patient does deny black/bloody stool, coffee-ground emesis. She does have a primary medical history of degenerative arthritis, paroxysmal A-fib, GERD, hypertension, and CHF. Workup in the emergency room revealed low hemoglobin of 8.3, hyperkalemia of 5.8, elevated creatinine 1.8. Fecal occult stool positive CTA of patient's chest reveals mass occupying the superior right kidney, worrisome for malignancy. Additionally it reveals cholelithiasis of the gallbladder with a bile duct dilation measuring 9.[address] Padilla was consulted from the emergency department where he recommended admission and upper endoscopy. [facility] medicine agreed to admit the patient for further assessment and workup, plan of care was as follows: #Anemia #GI bleed #Mid ascending malignant colon mass ? Hemoglobin dropped during admission 6.3, patient received 2 units PRBCs and hemoglobin has remained stable. Hemoglobin at discharge 10.1 ? Patient underwent upper endoscopy Thursday, no evidence of bleeding noted. Colonoscopy yesterday revealed mid ascending malignant mass (hemiferential and encompassing 50 to 60% of the circumference). Biopsies were taken during procedure and patient will follow-up outpatient with GI for further results. ? Cardiology consulted, recommendations to hold Eliquis. Cardiology recommends 2-week event monitor to further evaluate A-fib. Pending Holter monitor report consider watchman's device for management of A-fib. Patient will discharge home with 2-week event monitor today, continuing to hold Eliquis at this time. EKG shows sinus tachycardia, rate 104. Patient's metoprolol has been held during admission due to soft blood pressures, last BP 104/58. Plans to continue to hold metoprolol at discharge and follow-up with cardiology mid next week. ? During admission patient received 2 doses of Venofer IV. Patient will be discharged with oral iron 325 mg daily and MiraLAX daily. #CHF #Paroxysmal A-fib ? Continue spironolactone 25 mg twice daily. ? Repeat echo during admission shows LV EF of 55%, mild to moderate RV dilation with normal RV function, biatrial dilation, normal LV systolic function. #Acute kidney injury, improved: Creatinine improved from 1.8 to 1.2 day of discharge. #Right kidney mass: Concerning for malignancy, patient following with oncology due to newfound midascending malignant colon mass and right kidney mass. #Bile duct dilation #Cholelithiasis ? Patient denies abdominal pain, LFTs within normal limits. Patient tolerating p.o. diet without issues. Right upper quadrant ultrasound shows sludge and stones in the gallbladder with mild wall thickening, common duct is normal for age. Patient will follow with outpatient general surgery for further recommend ations. #UTI ? UA grossly abnormal, patient having urinary frequency. ? Patient urine culture positive ESBL, sensitive to Zosyn. Patient received 1 day of Zosyn 3.375 mg every 6 hours, discharging patient home on Bactrim twice daily x 6 days. Patient should have labs drawn at PCP office in approximately 1 week. Bactrim renally dosed. #Generalized weakness ? Patient evaluated by PT/OT for generalized weakness. Patient able to ambulate with walker intermittently, would benefit from wheelchair use inside the home or for ambulation greater than a few steps. Patient will be discharged home with home health PT/OT for continued rehabilitation and strength. Total time spent on discharge 38 minutes in counseling, documentation, chart review, and direct care with patient. Exam Data for Last 24 hours Vital signs and Labs for Last 24 Hours: Temp Pulse Resp BP Pulse Ox O2 Del Method 97.6 F 110 H 16 104/58 L 97 Room Air 07/14/25 08:00 07/14/25 08:00 07/14/25 08:00 07/14/25 08:00 07/14/25 08:00 07/14/25 08:59 Laboratory Results - last 24 hr 07/14/25 05:24: WBC 6.2, RBC 3.34 L, Hgb 10.1 L, Hct 31.3 L, MCV 93.7, MCH 30.2, MCHC 32.3, RDW 15.6, Plt Count 222, MPV 9.6, Neut % (Auto) 70.1, Lymph % (Auto) 15.8, [place] % (Auto) 11.8 H, Eos % (Auto) 1.6, Baso % (Auto) 0.2, Neut # (Auto) 4.4, Lymph # (Auto) 1.0, [place] # (Auto) 0.7, Eos # (Auto) 0.1, Baso # (Auto) 0.0, Sodium 134 L, Potassium 3.9, Chloride 113 H, Carbon Dioxide 20 L, Anion Gap 4.9 L, BUN 16 D, Creatinine 1.20 H, Estimated Creat Clear 28, Estimated GFR 43 L, Est GFR ( Amer) 52 L, Glucose 72 L, Calcium 7.6 L 07/14/25 05:29: Total Bilirubin 0.5, Direct Bilirubin 0.1, Conjugated Bilirubin 0.0, Indirect Bilirubin 0.4, Unconjugated Bilirubin 0.3, AST 24, ALT 11 L D, Alkaline Phosphatase 105, Total Protein 4.1 L D, Albumin 1.7 L I & O for Last 24 hours: Intake & Output 07/11/25 07/12/25 07/13/25 07/14/25 23:59 23:59 23:59 23:59 Intake Total 1250 / 1370 1800 / 1920 1393.333 / 1393.333 220 / 220 Output Total 0 / 0 0 / 0 0 / 0 Balance 1250 / 1370 1800 / 1920 1393.333 / 1393.333 220 / 220 Weight 46.947 kg 46.992 kg 46.996 kg 51.313 kg Microbiology Reports for the Last 24 Hours: Microbiology 07/11/25 18:12 Urine,Clean Catch Urine Culture - Final Escherichia coli Constitutional Constitutional: no acute distress, chronically ill appearing and cooperative *Routine HEENT Exam Head: Present normocephalic Eye: Present EOMI ENT: Present mucous membranes moist *Routine Neck Exam Neck: Present supple and full ROM; Absent JVD or lymphadenopathy *Routine Respiratory Exam Respiratory: Present CTA bilaterally, normal respiratory effort, able to speak in complete sentences and symmetric chest movement; Absent wheezes or crackles *Routine Cardiovascular Exam Cardiovascular: Present Normal S1, Normal S2 and tachycardia; Absent murmur *Routine Abdominal Exam Abdominal: Present soft and normoactive bowel sounds; Absent tenderness or distended *Routine Extremities Exam Extremities: Present full ROM, pulses intact and normal capillary refill; Absent clubbing or edema *Routine Neurological Exam Neurological: Present alert, oriented X3, moving all extremities, vision grossly intact, hearing grossly intact and normal speech Routine Psychiatric Exam Psychiatric: Present normal affect, normal thought process and cooperative Results Data Completed and Pending Labs on day of discharge: Labs from last 24 hours 07/14/25 07/14/25 05:29 05:24 WBC 6.2 RBC 3.34 L Hgb 10.1 L Hct 31.3 L MCV 93.7 MCH 30.2 MCHC 32.3 RDW 15.6 Plt Count 222 MPV 9.6 Neut % (Auto) 70.1 Lymph % (Auto) 15.8 Newberry % (Auto) 11.8 H Eos % (Auto) 1.6 Baso % (Auto) 0.2 Neut # (Auto) 4.4 Lymph # (Auto) 1.0 Newberry # (Auto) 0.7 Eos # (Auto) 0.1 Baso # (Auto) 0.0 Sodium 134 L Potassium 3.9 Chloride 113 H Carbon Dioxide 20 L Anion Gap 4.9 L BUN 16 D Creatinine 1.20 H Estimated Creat Clear 28 Estimated GFR 43 L Est GFR ( Amer) 52 L Glucose 72 L Calcium 7.6 L Total Bilirubin 0.5 Direct Bilirubin 0.1 Conjugated Bilirubin 0.0 Indirect Bilirubin 0.4 Unconjugated Bilirubin 0.3 AST 24 ALT 11 L D Alkaline Phosphatase 105 Total Protein 4.1 L D Albumin 1.7 L DS: Diagnosis Discharge Diagnosis (1) GI bleed: Status: Acute Code(s): K92.2 - Gastrointestinal hemorrhage, unspecified Qualifiers: GI bleed type/associated pathology: unspecified gastrointestinal hemorrhage type Qualified Code(s): K92.2 - Gastrointestinal hemorrhage, unspecified (2) Hyperkalemia: Status: Acute Code(s): E87.5 - Hyperkalemia (3) EYAL (acute kidney injury): Status: Acute Code(s): N17.9 - Acute kidney failure, unspecified (4) Adrenal abnormality: Status: Acute Code(s): E27.9 - Disorder of adrenal gland, unspecified (5) Metabolic acidosis: Status: Acute Code(s): E87.20 - Acidosis, unspecified (6) UTI (urinary tract infection): Status: Acute Code(s): N39.0 - Urinary tract infection, site not specified Qualifiers: Hematuria presence: without hematuria Urinary tract infection type: site unspecified Qualified Code(s): N39.0 - Urinary tract infection, site not specified (7) Paroxysmal atrial fibrillation: Status: Acute Code(s): I48.0 - Paroxysmal atrial fibrillation (8) Anemia due to blood loss, acute: Status: Acute Code(s): D62 - Acute posthemorrhagic anemia (9) Generalized weakness: Status: Acute Code(s): R53.1 - Weakness Meds Home Medications and Allergies Home Medications ?Medication ?Instructions ?Recorded ?Confirmed ?Type furosemide 40 mg tablet 40 mg PO DAILY 10/02/2106/17 History Held on 07/14/25. Instructions: until cardiology f/u hydrocodone 7.5 mg-acetaminophen 1 tab PO Q6H 08/13/22 07/12/25 History 325 mg tablet metoprolol tartrate 25 mg tablet 12.5 mg PO BID 07/12/25 History Held on 07/14/25. Instructions: until cardiology f/u spironolactone 25 mg tablet 25 mg PO BID 07/12/25 08/2 06/09 History ferrous sulfate 325 mg (65 mg 325 mg PO DAILY #30 tabs 07/14/25 Rx iron) tablet (Iron (ferrous sulfate)) polyethylene glycol 3350 17 17 g PO DAILY #238 grams 0 07/14/25 Rx gram/dose oral powder (Miralax) sulfamethoxazole 400 1 tab PO BID #12 tabs Rx mg-trimethoprim 80 mg tablet (Bactrim) New Prescriptions to Start Prescriptions: ferrous sulfate [Iron (ferrous sulfate)] Teresita Gil polyethylene glycol 3350 [Miralax] Teresita Gil sulfamethoxazole-trimethoprim [Bactrim] Teresita Gil Allergies Allergy/AdvReac Type Severity Reaction Status Date / Time Ttacmcc-HIG-FfU Reductase Allergy Severe S-SWELLS-OR Verified 08/13/22 12:54 Inhibitor (Fpirwow-Prd-Tsv AL/THROAT Reductase Inhibitor) NSAIDS (Non-Steroidal Allergy Unknown ULCERS Verified 08/13/22 12:54 Anti-Inflamma Discharge Plan Disposition Patient Disposition: Home Health Service Condition: Fair Discharge Order Discharge Orders: Discharge Order (Routine); Ordered 07/14/25 Ordered By: Teresita Gil Follow up Plan Follow up with: Sue Hood APRN [Nurse Practitioner, Cardiology] - 07/24/25 10:45 am Referral Note: 5 days Fredy Hightower MD [Staff Physician, General Surgery] - 07/20/25 10:00 am Tanner Padilla II, MD [Staff Physician, Gastroenterology] - 08/14/25 9:30 am Ángel Mahoney MD [Staff Physician, Oncology] - 07/19/25 1:30 pm Hayder Wheeler MD [Primary Care Provider, Internal Medicine] - 07/20/25 2:15 pm Referral Note: appointment in [place] office Prescriptions/Medication Reconciliation: New ferrous sulfate [Iron (ferrous sulfate)] 325 mg (65 mg iron) tablet 325 mg PO DAILY Qty: 30 0RF polyethylene glycol 3350 [Miralax] 17 gram/dose powder 17 g PO DAILY Qty: 238 0RF sulfamethoxazole-trimethoprim [Bactrim] 400-80 mg tablet 1 tab PO BID Qty: 12 0RF Continued hydrocodone-acetaminophen 7.5-325 mg tablet 1 tab PO Q6H spironolactone 25 mg tablet 25 mg PO BID Patient Comments: TAKE ONE TABLET BY MOUTH TWICE DAILY Held furosemide 40 mg tablet 40 mg PO DAILY Hold Instructions: until cardiology f/u metoprolol tartrate 25 mg tablet 12.5 mg PO BID Hold Instructions: until cardiology f/u Patient Comments: TAKE 1/2 TABLET BY MOUTH TWICE DAILY with food Discontinued Eliquis 2.5 mg tablet 2.5 mg PO BID Patient Comments: TAKE ONE TABLET BY MOUTH TWICE DAILY Problem Reconciliation Problems Reviewed?: Yes Patient Discharge Instructions ACTIVITY: Continue current activity DIET: continue same diet Patient Instructions: Urinary Tract Infection, Colonoscopy, Upper GI Endoscopy, Surgical Site Infection, Gastrointestinal Bleeding Print Language: Tongan Providers Primary Care Provider: Hayder Wheeler Admit Provider: Jerome Asencio Attending Provider: Jerome Asencio
--- NOTE | 2025-07-14 10:52 | P.CONPHA_ITS ---
Pharmacy Intervention Comments: discharge counseling completed. pt daughter in room, instructed to hold furosemide and metoprolol until cardiology appointment (verified with snack stewardess that cardiology appointment needs to be made). counseled to stop eliquis. counseled on new prescriptions. answered question about home medications and returned spironolactone, metoprolol and hydrocodone (pt own supply) to her daughter. 5 tablets left in hydrocodone bottle and veriifed that was correct with daughter in room. she returned medicaiton to her purse. encouraged her to acall back if she has any questions.
[2025-07-14 12:00] VITALS: PULSE 120
[2025-07-15 10:12] LABS: CEA 3.0 ng/mL (0.0-4.7)
== END 2025-07-14 14:27 | disposition home health service (06) | DRG 375 ==
LOC: ER 15:42 → 2ND 22:25
PROVIDERS: Internal Medicine Gastroenterology; Nurse Practitioner Family; Physician Assistant; Admitting Provider Student in an Organized Health Care Education/Training Program; Emergency Provider Student in an Organized Health Care Education/Training Program; PCP Internal Medicine Adolescent Medicine; Visit Provider Student in an Organized Health Care Education/Training Program
PROC: 0DJ08ZZ Inspection of Upper Intestinal Tract, Via Natural or Artificial Opening Endoscopic (ICD-10-PCS; principal; 2025-07-12 15:30)
PROC: 0DJD8ZZ Inspection of Lower Intestinal Tract, Via Natural or Artificial Opening Endoscopic (ICD-10-PCS; CPT 45378; principal; 2025-07-13 15:30)
DX: C18.2 Malignant neoplasm of ascending colon (principal); D62 Acute posthemorrhagic anemia; E87.1 Hypo-osmolality and hyponatremia; N17.9 Acute kidney failure, unspecified; E87.20 Acidosis, unspecified; N39.0 Urinary tract infection, site not specified; Z16.12 Extended spectrum beta lactamase (ESBL) resistance; K21.9 Gastro-esophageal reflux disease without esophagitis; E87.5 Hyperkalemia; E83.51 Hypocalcemia; K29.50 Unspecified chronic gastritis without bleeding; K57.10 Diverticulosis of small intestine without perforation or abscess without bleeding; I48.0 Paroxysmal atrial fibrillation; E27.9 Disorder of adrenal gland, unspecified; K57.30 Diverticulosis of large intestine without perforation or abscess without bleeding; I11.0 Hypertensive heart disease with heart failure; I50.9 Heart failure, unspecified; B96.20 Unspecified Escherichia coli [E. coli] as the cause of diseases classified elsewhere; M19.90 Unspecified osteoarthritis, unspecified site; K64.8 Other hemorrhoids; K31.9 Disease of stomach and duodenum, unspecified; K80.20 Calculus of gallbladder without cholecystitis without obstruction; R53.1 Weakness; N28.89 Other specified disorders of kidney and ureter; K22.4 Dyskinesia of esophagus; K83.8 Other specified diseases of biliary tract; Z87.11 Personal history of peptic ulcer disease; Z79.01 Long term (current) use of anticoagulants; Z79.899 Other long term (current) drug therapy
CPT/HCPCS: 36415; 36430; 71045; 74174; 76705; 80048; 80053; 80076; 81001; 82272; 82378; 82607; 82728; 82746; 83516; 83540; 83550; 83690; 84630; 85007; 85014; 85018; 85025; 85044; 85610; 86850; 87086; 87088; 87186; 93005; 93270; 93306; 97162; 97166; 97530; 99285; G0328; G0378; J0612; J0696; J1756; J2003; J2405; J2470; J2543; J2704; J7030; J7120; P9016; Q0162; Q9967

== ENCOUNTER 2025-07-21 07:28 | Outpatient (CLI) | payer MEDICARE, OTHER, SELFPAY ==
--- OUTSIDE RECORDS SUMMARY | 2025-06-13 07:00 | XMS_ITS ---
Author Organization [facility] Address [address] [place] [address] Care Team Providers Care Lay Out And Detail Drafter Name Role Phone Hayder Wheeler Primary Care Provider Allergies Allergen (clinical drug ingredient) Drug/Non Drug Allergy documented on EMR Reaction Allergy Type Onset Date Status Non-steroidal anti-inflammatory agent (FN) NSAIDs Ulcer Drug Allergy Active Substance with 2-pfookua-0-methylgluta ryl-coenzyme A reductase inhibitor mechanism of action [...] Signs Temperature 97.9 degrees Fahrenheit 06/13/20 25 Heart Rate 72 /min 06/13/2025 Blood pressure systolic 92 mm Hg 07/29/20 25 Blood pressure diastolic 56 mm Hg 025 Height 4 ft 8 in in 06/13/2025 Weight 103 lbs 06/13/2025 BMI 23.09 kg/m2 06/13/2025 Encounters Encounter Location Date Provider Diagnosis [facility] [address] [facility] [address] [place] [address] 06/13/2025 Hayder Besconnor Edema, unspecified R60.9 and New onset atrial [...] Appt Details Follow Up: 6 Weeks, Reason: Provider Name:Hayder Vargas Summer, 08/10/2025 12:00:00 PM, [address] [facility] [address], [place], [address], Progress Notes * BALDEMAR, Susan JDOB:[birth year] (84 yo F)Acc No.[id number]:06/13/2025 Progress Notes Patient: Susan DOBBINS Provider: Lynn Wheeler MD :1940 A ge:84 Y S ex:Female Date:06/13/2025 Address:[address] [place], [place] [id number] Subjective: * Chief Complaints: * 1 . Med ck. 2. Weakness. * HPI: g en: Susan Dudley is an 84 yo here for follow [...] true * Provider: Lynn Wheeler MD Date: 06/13/2025 Generated for Mariel bryson/Faxing/eTransmitting on: 0 07/21/2025 07:32 AM EDT History and Physical Notes * HPI (History of Present Illness) Category Sub-Category Detail Notes Category Not es gen Susan Dudley i s an 84 yo here for [...]
--- OUTSIDE RECORDS SUMMARY | 2025-07-11 08:15 | XMS_ITS ---
Author Organization [facility] Address [address] [place] [address] Care Team Providers Care Data Processor Name Role Phone Hayder Wheeler Primary Care Provider Allergies Allergen (clinical drug ingredient) Drug/Non Drug Allergy documented on EMR Reaction Allergy Type Onset Date Status Non-steroidal anti-inflammatory agent (FN) NSAIDs Ulcer Drug Allergy Active Substance with 4-vissvpi-5-methylgluta ryl-coenzyme A reductase inhibitor mechanism of action (substance) Statins Unknown Drug Allergy Active Results Component Value Reference Range Notes COMP METABOLIC PANEL Reviewed date:07/13/2025 08:36:35 AM Interpretation: Performing Lab: Notes/Report: SODIUM 133 136-145 [...] Note Unless otherwise noted testing performed at: [place] [address] Simone Ricks MD CLIA: [id number] MAGNESIUM Reviewed date:07/13/2025 08:36:35 AM Interpretation: Performing Lab: Notes/Report: MAGNESIUM 2.3 1.8-2.4 mg/dL Note Unless otherwise noted testing performed at: [place] [address] Simone Ricks MD CLIA: [id number] PHOSPHOROUS Reviewed date:07/13/2025 08:36:35 AM Interpretation: Performing Lab: Notes/Report: PHOSPHORUS 3.8 2.5-4.9 mg/dL Note Unless otherwise noted testing performed at: [place] [address] Simone Ricks MD CLIA: [id number] THYROID PANEL (T3U/T4/FTI) Reviewed date:07/13/2025 08:36:35 AM Interpretation: Performing Lab: Notes/Report: T3 UPTAKE 43 30-40 % T4 TOTAL 1.8 4.8-13.9 ug/dL FREE THYROXINE INDEX (T7) 0.8 1.6-3.7 Note Unless otherwise noted testing performed at: [place] [address] Simone Ricks MD CLIA: [id number] THYROID STIMULATING HORMONE Reviewed date:07/13/2025 08:36:35 AM Interpretation: Performing Lab: Notes/Report: THYROID STIMULATING HORMONE 2.28 0.34-4.80 mIU /mL Note Unless otherwise noted testing performed at: [address] [address] Simone Ricks MD CLIA: [id number] CBC AUTO W DIFF Reviewed date:07/13/2025 08:36:35 AM Interpretation: Performing Lab: Notes/Report: WBC 8.1 4.5-11.5 [...] Note Unless otherwise noted testing performed at: [address] [address] Simone Ricks MD CLIA: [id number] REASON FOR VISIT med ck Medications Medication [...] 2.5 mg TAKE ONE TABLET BY M OUT TWICE DAILY; Duration: 30 Active Vital Signs Temperature 98.2 degrees Fahrenheit 07/11/20 25 Heart Rate 72 /min 07/11/2025 Blood pressure systolic 100 mm Hg 07/11/20 25 Blood pressure diastolic 60 mm Hg 025 Height 4 ft 8 in in 07/11/2025 Weight 103 lbs 07/11/2025 BMI 23.09 kg/m2 07/11/2025 Encounters Encounter Location Date Provider Diagnosis [facility] [address] [facility] [address] [place] [address] 07/11/2025 Hayder Wheeler Dizziness and giddiness R42 [...] communicated findings directly with ER physician at [facility], will fax labs. Multiple complexities with patient. [...] communicated findings directly with ER physician at [facility], will fax labs. Multiple complexities with patient. Next Appt Details Follow Up: prn, Reason: Provider Name:Hayder Wheeler, 08/10/2025 12:00:00 PM, [address], [address], Progress Notes * Susan MCDERMOTTDOB:[birth year] (84 yo F)Acc No.[id number]:07/11/2025 Progress Notes Patient: Susan DOBBINS Provider: Lynn Wheeler MD :1940 A ge:84 Y S ex:Female Date:07/11/2025 Address:[address] [place], [place] [id number] Subjective: * Chief Complaints: * 1 . [...] Grand Mother: . S iblings: alive. C stanley: alive. 1 brother(s) , [...] O SMOLALITY (CALCULATED) 289 275-301 - mosm/kg * This lab was reviewed by Duc Wheeler on 07/13/2025 at 08:36 AM EDT ?LAB: MAGNESIUM (Collection Date & Time - 07/11/2025 01:16 PM)* Value Reference Range M AGNESIUM 2.3 1.8-2.4 - mg/dL * This lab was reviewed by Duc Wheeler on 07/13/2025 at 08:36 AM EDT ?LAB: PHOSPHOROUS (Collection Date & Time - 07/11/2025 01:16 PM)* Value Reference Range P HOSPHORUS 3.8 2.5-4.9 - mg/dL * This lab was reviewed by Duc Wheeler on 07/13/2025 at 08:36 AM EDT ?LAB: THYROID PANEL (T3U/T4/FTI) (Collection Date & Time - 07/11/2025 01:16 PM)* Value Reference Range T 3 UPTAKE 43 H 30-40 - % * T 4 TOTAL 1.8 L 4.8-13.9 - ug/dL * F REE THYROXINE INDEX (T7) 0.8 L 1.6-3.7 - * This lab was reviewed by Duc Wheeler on 07/13/2025 at 08:36 AM EDT ?LAB: THYROID STIMULATING HORMONE (Collection Date & Time - 07/11/2025 01:16 PM)* Value Reference Range T HYROID STIMULATING HORMONE 2.28 0.34-4.80 - m IU/mL * This lab was reviewed by Duc Wheeler on 07/13/2025 at 08:36 AM EDT ?LAB: CBC AUTO W DIFF (Collection Date [...] 10 * M ANUAL DIFFERENTIAL NO - * This lab was reviewed by Duc Wheeler on 07/13/2025 at 08:36 AM EDT 2.?Syncope and collapse?LAB: COMP METABOLIC PANEL (Collection [...] O SMOLALITY (CALCULATED) 289 275-301 - mosm/kg * This lab was reviewed by Duc Wheeler on 07/13/2025 at 08:36 AM EDT ?LAB: MAGNESIUM (Collection Date & Time - 07/11/2025 01:16 PM)* Value Reference Range M AGNESIUM 2.3 1.8-2.4 - mg/dL * This lab was reviewed by Duc Wheeler on 07/13/2025 at 08:36 AM EDT ?LAB: PHOSPHOROUS (Collection Date & Time - 07/11/2025 01:16 PM)* Value Reference Range P HOSPHORUS 3.8 2.5-4.9 - mg/dL * This lab was reviewed by Duc Wheeler on 07/13/2025 at 08:36 AM EDT ?LAB: THYROID PANEL (T3U/T4/FTI) (Collection Date & Time - 07/11/2025 01:16 PM)* Value Reference Range T 3 UPTAKE 43 H 30-40 - % * T 4 TOTAL 1.8 L 4.8-13.9 - ug/dL * F REE THYROXINE INDEX (T7) 0.8 L 1.6-3.7 - * This lab was reviewed by Duc Wheeler on 07/13/2025 at 08:36 AM EDT ?LAB: THYROID STIMULATING HORMONE (Collection Date & Time - 07/11/2025 01:16 PM)* Value Reference Range T HYROID STIMULATING HORMONE 2.28 0.34-4.80 - m IU/mL * This lab was reviewed by Duc Wheeler on 07/13/2025 at 08:36 AM EDT ?LAB: CBC AUTO W DIFF (Collection Date [...] 10 * M ANUAL DIFFERENTIAL NO - * This lab was reviewed by Duc Wheeler on 07/13/2025 at 08:36 AM EDT 3.?Others? Notes: Patient signs and symptoms consistent [...] communicated findings directly with ER physician at [facility], will fax labs. Multiple complexities with patient.?? * Follow Up: p rn * * Sign off status: Completed true * Provider: Lynn Wheeler MD Date: 0 07/11/2025 Generated for Mariel bryson/Glory/Mekhiitting on: 0 07/21/2025 07:32 AM EDT History [...]
--- OUTSIDE RECORDS SUMMARY | 2025-07-20 10:15 | XMS_ITS ---
Author Organization [facility] Address [address] [place] [address] Care Team Providers Care Health And Safety Instructor Name Role Phone Hayder Wheeler Primary Care Provider Allergies Allergen (clinical drug ingredient) Drug/Non Drug Allergy documented on EMR Reaction Allergy Type Onset Date Status Non-steroidal anti-inflammatory agent (FN) NSAIDs Ulcer Drug Allergy Active Substance with 9-uwqyunf-8-methylgluta ryl-coenzyme A reductase inhibitor mechanism of action (substance) Statins Unknown Drug Allergy Active REASON FOR VISIT Discharged from [facility] on 07/14/2025 Medications Medication SIG (Take, Route, Frequency, Duration) Notes Start Date End Date Status Spironolactone 25 mg TAKE ONE TABLET BY MOUTH TWICE DAILY; Duration: 30 Active Metoprolol Tartrate 25 MG 1/2 Orally Twi ce a day; Duration: 30 days on hold Active HYDROcodone-Acetaminophen 7.5-325 MG 1 tab(s) orally every 6 hours; Duration: 30 days 07/14/2025 Active Vitamin D3 50 MCG (1999 UT) 1 tab(s) ora lly once a day Active Furosemide 40 MG 1 tab(s) orally once a day; Duration: 90 days on hold 08/20/2021 Active Ferrous Sulfate 325 MG as directed Orally Active Polyethylene Glycol 3350 - as directed Active Problems Problem Type SNOMED Code ICD Code Onset Dates Problem Status W/U Status Risk Notes Problem Malignant tumor of ascending colon (628289847) Malignant neoplasm of ascending colon (C18.2) Active confirmed Problem Disorder of kidney and/or ureter (783719411) Renal mass, right (N28.89) Active confirmed Problem Chronic atrial fibrillation (106828491) Chronic atrial fibrillation (I48.20) Active confirmed Vital Signs Temperature 98 degrees Fahrenheit 07/20/2025 Heart Rate 68 /min 07/20/2025 Blood pressure systolic 122 mm Hg 07/20/20 25 Blood pressure diastolic 88 mm Hg 025 Height 4 ft 8 in in 07/20/2025 Weight 114 lbs 07/20/2025 BMI 25.56 kg/m2 07/20/2025 Encounters Encounter Location Date Provider Diagnosis [facility] [address] [id number] 07/20/2025 Hayder Wheeler Malignant neoplasm o f ascending colon C18.2 ; Renal mass, right N28.89 ; Chronic atrial fibrillation I48.20 and Hospital discharge follow-up Z09 Assessments Encounter Date Diagnosis (ICD Code) Assessment Notes Treatment Notes Treatment Clinical Notes Section Notes 07/20/2025 Malignant neoplasm of ascending colon (ICD-10 - C18.2) Patient aware of diagnosis. Talked with her and her daughter extensively. Discussed that she is seeing hematology/onco logy and they have recommended a CAT scan for tomorrow of the chest. They are very confused about why this is the case and think it is to look at her heart. We discussed that she had an echo and is wearing a heart monitor. For some reason she has an appointment with cardiology next Thursday when the heart monitor will still be on. I instructed him to try to call and get this put off until the monitor has been removed. She will see surgery and urology on Thursday. See notes below 07/20/2025 Renal mass, right (ICD-10 - N28.89) Constellation of colon cancer and renal mass extremely concerning. Patient is aged and has poor functional status. Discussed that she did not have to undergo therapy or chemo or surgery and this was certainly her decision. She does not seem to really understand this concept. Encouraged her to ahead and proceed with referral to [facility] and then see what her options would be at that point. 07/20/2025 Chronic atrial fibrillation (ICD-10 - I48.20) Rate controlled at this point. Off DOAC. 07/20/2025 Hospital discharge follow-up (ICD-10 - Z09) Personally reviewed H&P and discharge summary as available from hospital discharge documentation. Reviewed pertinent labs and test done in the hospital. Personally reconciled medication. Plan Of Treatment Treatment Notes Assessment Notes Malignant neoplasm of ascending colon Patient aware of diagnosis. Talked with her and her daughter extensively. Discussed that she is seeing hematology/oncology and they have recommended a CAT scan for tomorrow of the chest. They are very confused about why this is the case and think it is to look at her heart. We discussed that she had an echo and is wearing a heart monitor. For some reason she has an appointment with cardiology next Thursday when the heart monitor will still be on. I instructed him to try to call and get this put off until the monitor has been removed. She will see surgery and urology on Thursday. See notes below Renal mass, right Constellation of colon cancer and renal mass extremely concerning. Patient is aged and has poor functional status. Discussed that she did not have to undergo therapy or chemo or surgery and this was certainly her decision. She does not seem to really understand this concept. Encouraged her to ahead and proceed with referral to [facility] and then see what her options would be at that point. Chronic atrial fibrillation Rate control led at this point. Off DOAC. Hospital discharge follow-up Personally reviewed H&P and discharge summary as available from hospital discharge documentation. Reviewed pertinent labs and test done in the hospital. Personally reconciled medication. Future Test Test Name Order Date M-Complete Blood Count Auto Diff 025 M-Comprehensive Metabolic Panel 07/24/20 Next Appt Details Follow Up: prn,3 Weeks, Reas on: Provider Name:Hayder Wheeler, 08/10/2025 12:00:00 PM, [address] [place] [address], [id number], Progress Notes * Susan MCDERMOTTDOB:[birth year] (84 yo F)Acc No.[id number]:07/20/2025 HOSP F/U Patient: Susan DOBBINS Rosina Provider: Lynn Wheeler MD :1940 A ge:84 Y S ex:Female Date:07/20/2025 Address:[address], [id number] Subjective: * Chief Complaints: * 1 . Discharged from [facility] on 07/14/2025. * HPI: I ntrim History: Patient here for hospital discharge follow-up visit. Admitted from the office last week. Significant anemia noted. Had had A-fib, on DOAC therapy, lots of bleeding. Admitted to hospital. Essentially workup included dean endoscopy that revealed a right sided probable colon cancer. CT scan showed also right renal mass. Cardiology saw her, echocardiogram was done, they have placed a 2-week event recorder on her. She was sent to general surgery because of gallstones even though she is asymptomatic. Talked personally with surgeon this morning, she plans to see urology next Thursday and probably will be referred to [facility] evaluation for the colon cancer with possible secondary malignancy in the kidney versus metastasis. She feels better and has had no syncope symptoms. Little worried about her leg swelling. Transition of care visit from hospital D ate of admission to hospital: 0 07/11/2025, D ate of receipt of hospital admission report: 0 07/12/2025,?Date of discharge from hospital: 0 07/14/2025, D ate of receipt of hospital discharge summary: 0 07/14/2025, D ischarge medications reviewed and reconciled from hospital: M edications left unchanged. * Medical History: H yperlipidemia - intolerant [...] , Gastric ulcer with anemia requiring transfusions 05/2016, [facility] 08/11- . * Family History: F ather: , diagnosed with Hypertension. M other: , diagnosed with Hypertension. P aternal Grand Father: . P aternal Grand Mother: . M aternal Grand Father: . M aternal Grand Mother: . S efrain: alive. Patti angel: alive. 1 brother(s) , 2 sister(s) . 1 daughter(s) - healthy. . * Social History: S moking A re you a:: nonsmoker. R ecreational drug use: no. Home smoke detector use: no. Caffeine: no. Living Will: No. Alcohol: no. Sexually active: no. Travel outside [place]: no. Occupation: housekeeping. Lives with daughter. Uses walker in home. * Medications: T aking Ferrous Sulfate 325 MG Capsule as directed Orally , Taking Polyethylene Glycol 3350 - Powder as directed , Taking Vitamin D3 50 MCG (2000 UT) Tablet 1 tab(s) orally once a day , Taking Furosemide 40 MG Tablet 1 tab(s) orally once a day , Notes to Pharmacist: on hold, Taking Metoprolol Tartrate 25 MG Tablet 1/2 Orally Twice a day , Notes to Pharmacist: on hold, Taking HYDROcodone-Acetaminophen 7.5-325 MG Tablet 1 tab(s) orally every 6 hours , Taking Spironolactone 25 mg Tablet TAKE ONE TABLET BY MOUTH TWICE DAILY , Discontinued Sulfamethoxazole-Trimethoprim 800-160 MG Tablet 1 tablet Orally Three times a Week , Discontinued Eliquis 2.5 mg Tablet TAKE ONE TABLET BY MOUTH TWICE DAILY , Medication List reviewed and reconciled with the patient * Allergies: S tatins, NSAIDs: Ulcer - Contraindication. Objective: * Vitals: N urse: dw, Pain: 0, Temp: 98, RR: 20, HR: 68, BP: 122/88, Ht: 4 ft 8 in, Wt: 114, BMI:25.56. * Examination: G eneral Examination: P atient is pleasant and talkative. Hard of hearing. Lungs are clear. Heart rate irregular. Abdomen soft, nontender. Ankle edema up to the shins, wearing stockings. No hand edema. Walks with a great deal of difficulty with her walker because of her kyphosis and knee arthritis. Assessment: * Assessment: 1. M alignant neoplasm of ascending colon - C18.2 (Primary) 2 . R enal mass, right - N28.89 3 . C hronic atrial fibrillation - I48.20 4 .?Hospital discharge follow-up - Z09 Plan: * Treatment: 2. R enal mass, right L AB: M-Complete Blood Count Auto Diff (Ordered for 07/24/2025) L AB: M-Comprehensive Metabolic Panel (Ordered for 07/24/2025) Notes: Constellation of colon cancer and renal mass extremely concerning. Patient is aged and has poor functional status. Discussed that she did not have to undergo therapy or chemo or surgery and this was certainly her decision. She does not seem to really understand this concept. Encouraged her to ahead and proceed with referral to [facility] and then see what her options would be at that point. 3. C hronic atrial fibrillation Notes: Rate controlled at this point. Off DOAC. 4. H ospital discharge follow-up Notes: Personally reviewed H&P and discharge summary as available from hospital discharge documentation. Reviewed pertinent labs and test done in the hospital. Personally reconciled medication. * Procedure Codes: 9 9496 TRANS CARE MGMT 7 DAY DISCH, Modifiers: 25 , 1170F FUNCTIONAL STATUS ASSESSMENT * Follow Up: p rn,3 Weeks * * Sign off status: Completed true * Provider: Lynn Wheeler MD Date: 0 07/20/2025 Generated for Nevillei ng/Fayingg/eTransmitting on: 0 07/21/2025 07:32 AM EDT History and Physical Notes * HPI (History of Present Illness) Category Sub-Category Detail Notes Category Not es [place] History Transition of care v isit from hospital Date of admission to hospital:: 07/11/2025 Date of receipt of hospital admission re port:: 07/12/2025 Date of discharge from hospital:: 2024 Date of receipt of hospital discharge forbes mmary:: 07/14/2025 Discharge medications review ed and reconciled from hospital:: Medications left unchanged Examination Category Sub-Category Detail Notes Category Not es General Examination Patient is pleasant and talkative. Hard of hearing. Lungs are clear. Heart rate irregular. Abdomen soft, nontender. Ankle edema up to the shins, wearing stockings. No hand edema. Walks with a great deal of difficulty with her walker because of her kyphosis and knee arthritis.
--- OUTSIDE RECORDS SUMMARY | 2025-07-21 07:32 | XMS_ITS | Referral Summary ---
Author Organization [employer] ([place], [place], [place], [place]) Address [address] [place] [address] Care Team Providers Care Lab Tech Name Role Phone Unavailable Primary Care Provider [...]
--- OUTSIDE RECORDS SUMMARY | 2025-07-21 07:32 | XMS_ITS | Clinical Summary ---
Author Organization [employer] ([place], [place], [place], [place]) Address [address] [place] [address] Care Team Providers Care Tool Filer Name Role Phone Unavailable Primary Care Provider [...]
--- OUTSIDE RECORDS SUMMARY | 2025-07-21 07:33 | XMS_ITS | Encounter Summary ---
Author Organization [employer] ([place], [place], [place], [place]) Address [address] [place] [address] Care Team Providers Care Button Puncher Name Role Phone Unavailable Primary Care Provider Unavailabl e Encounter Details Date Type Department Care Team (Late st Contact Info) Description 08/17/2020 Transcribed Document [facility] [place] [address] ProviderKennedi MD [address], [place] [id number] Social History Tobacco Use Types Packs/Day Years [...] she had been seeing wound care at [facility] for this issue previously. She states that [...] Primary Care Physician - JONH SHANE (MD [facility] Attending Physician - NISREEN KOHLER [...]
--- OUTSIDE RECORDS SUMMARY | 2025-07-21 07:33 | XMS_ITS | Patient Health Record ---
Author Organization [facility] Address [address] [place] [address] Care Team Providers Care Timber Robber Name Role Phone Hayder Wheeler Primary Care Provider [phone] Migration, Provider Unavailable Unavailable Allergies Allergen (clinical drug ingredient) Drug/Non Drug Allergy documented on EMR Reaction Allergy Type Onset Date Status Non-steroidal anti-inflammatory agent (FN) NSAIDs Ulcer Drug Allergy Active Substance with 8-qvcaykf-2-methylgluta ryl-coenzyme A reductase inhibitor mechanism of action (substance) Statins Unknown Drug Allergy Active Results Component Value Reference Range Notes THYROID PANEL WITH TSH (7444 ) Reviewed date:04/26/2025 02:14:41 PM Interpretation: Performing Lab:DYLON ExecNote-DE Spiritse1355 Datumatetel I and love and you, VeaconGpfsCY[address] Magdaleno Langley Notes/Report: NON-FASTING; NON-FASTING; NON-FASTING; NON-FASTING T3 UPTAKE 39 22-35 % T4 (THYROXINE), TOTAL 6.9 5.1-11.9 mcg/dL FREE T4 INDEX (T7) 2.7 1.4-3.8 TSH 1.60 0.40-4.50 mIU/L LIPID PANEL, STANDARD (7600) Reviewed date:01/26/2025 02:20:12 PM Interpretation: Performing Lab:DYLON ExecNote-DE Spiritse1355 Datumatetel I and love and youvd, [place] KgnsVM[address] Magdaleno Langley Notes/Report: FASTING: NO FASTING:NO NON-FASTING; NON-FASTING; NON-FASTING; NON-FASTING CHOLESTEROL, TOTAL 162 <200 mg/dL HDL CHOLESTEROL [...] of LDL-C. Blaise SS et al. MANSI. 2013;310(35): 8215-0045 (http://education.[employer].TechShop/faq/BFZ685) CHOL/HDLC RATIO 3.4 <5.0 (calc) NON HDL CHOLESTEROL 114 <130 mg/dL (calc) For patients with diabetes plus 1 major ASCVD risk factor, treating to a non-HDL-C goal of <100 mg/dL (LDL-C of <70 mg/dL) is considered a therapeutic option. COMPREHENSIVE METABOLIC RAMON Cyr (97352) Reviewed date:01/26/2025 02:20:12 PM Interpretation: Performing Lab:CB, [facility]Loy Zlku2358 [facility], [place] ZlluKU[address] Magdaleno Langley Notes/Report: NON-FASTING; NON-FASTING; NON-FASTING; NON-FASTING [...] 18 10-35 U/L ALT 8 6-29 U/L COMPREHENSIVE METABOLIC PANE L (70382) Reviewed date:04/26/2025 02:14:41 PM Interpretation: Performing Lab:YDLON ExecNoteDonna [place] [id number] [facility]eteH[facility], [facility] CenterUntbER[address] Magdaleno Langley Notes/Report: NON-FASTING; NON-FASTING; NON-FASTING; NON-FASTING [...] 18 10-35 U/L ALT 9 6-29 U/L MAGNESIUM (622) Reviewed date:04/26/2025 02:14:41 PM Interpretation: Performing Lab:DYLON ExecNoteScott Ville [address]AppoliciousteHoboken [facility], [facility] CenterCtkgEG[address] Magdaleno Langley Notes/Report: NON-FASTING; NON-FASTING; NON-FASTING; NON-FASTING MAGNESIUM 2.0 1.5-2.5 mg/dL CBC (INCLUDES DIFF/PLT) (639 9) Reviewed date:04/26/2025 02:14:41 PM Interpretation: Performing Lab:DYLON ExecNoteDonna [place] [id number] [facility]eteH[facility], [facility] CenterNttpYY[address] Magdaleno Langley Notes/Report: NON-FASTING; NON-FASTING; NON-FASTING; NON-FASTING [...] MPV 10.4 7.5-12.5 fL ABSOLUTE NEUTROPHILS 6380 2740-1207 cells/uL ABSOLUTE LYMPHOCYTES 816 128-6371 cells/uL ABSOLUTE MONOCYTES 484 200-950 cells/uL ABSOLUTE EOSINOPHILS 8 15-500 cells/uL ABSOLUTE BASOPHILS 31 0-200 cells/uL NEUTROPHILS 81.8 LYMPHOCYTES 11.5 MONOCYTES 6.2 EOSINOPHILS 0.1 BASOPHILS 0.4 CBC (INCLUDES DIFF/PLT) (639 9) Reviewed date:01/26/2025 02:20:12 PM Interpretation: Performing Lab:CB, [facility]olise1355 [facility], Loy IngramWoasDH[address] Magdaleno Langley Notes/Report: NON-FASTING; NON-FASTING; NON-FASTING; NON-FASTING [...] MPV 11.1 7.5-12.5 fL ABSOLUTE NEUTROPHILS 5824 5358-3043 cells/uL ABSOLUTE LYMPHOCYTES 5458 901-0501 cells/uL ABSOLUTE MONOCYTES 466 200-950 cells/uL ABSOLUTE EOSINOPHILS 22 15-500 cells/uL ABSOLUTE BASOPHILS 22 0-200 cells/uL NEUTROPHILS 78.7 LYMPHOCYTES 14.4 MONOCYTES 6.3 EOSINOPHILS 0.3 BASOPHILS 0.3 VITAMIN D,25-OH,TOTAL,IA (17 306) Reviewed date:01/26/2025 02:20:12 PM Interpretation: Performing Lab:CB, ExecNote-[facility]ise1355 [facility], [facility] CenterDdpqRZ[address] Magdaleno Langley Notes/Report: NON-FASTING; NON-FASTING; NON-FASTING; NON-FASTING [...] D, (D2,D3), LC/MS/MS is recommended: order code 69754 (patients >2yrs). See Note 1 Note 1 For additional information, please refer to http://education.[employer]/faq/DDU267 (This link is being provided for informational/ educational purposes only.) COMP METABOLIC PANEL Reviewed date:07/13/2025 08:36:35 AM [...] Note Unless otherwise noted testing performed at: [place] [address] Simone Ricks MD CLIA: [id number] MAGNESIUM Reviewed date:07/13/2025 08:36:35 AM Interpretation: Performing Lab: Notes/Report: MAGNESIUM 2.3 1.8-2.4 mg/dL Note Unless otherwise noted testing performed at: [place] [address] Simone Ricks MD CLIA: [id number] PHOSPHOROUS Reviewed date:07/13/2025 08:36:35 AM Interpretation: Performing Lab: Notes/Report: PHOSPHORUS 3.8 2.5-4.9 mg/dL Note Unless otherwise noted testing performed at: [address] [address] Simone Ricks MD CLIA: [id number] THYROID PANEL (T3U/T4/FTI) Reviewed date:07/13/2025 08:36:35 AM Interpretation: Performing Lab: Notes/Report: T3 UPTAKE 43 30-40 % T4 TOTAL 1.8 4.8-13.9 ug/dL FREE THYROXINE INDEX (T7) 0.8 1.6-3.7 Note Unless otherwise noted testing performed at: [address] [address] Simone Ricks MD CLIA: [id number] THYROID STIMULATING HORMONE Reviewed date:07/13/2025 08:36:35 AM Interpretation: Performing Lab: Notes/Report: THYROID STIMULATING HORMONE 2.28 0.34-4.80 mIU /mL Note Unless otherwise noted testing performed at: [address] [address] Simone Ricks MD CLIA: [id number] CBC AUTO W DIFF Reviewed date:07/13/2025 08:36:35 [...] Note Unless otherwise noted testing performed at: [address] [address] Simone Ricks MD CLIA: [id number] Medications Medication SIG (Take, Route, Frequency, Duration) Notes Start Date End Date Status Spironolactone 25 mg TAKE ONE TABLET BY MOUTH TWICE DAILY; Duration: 30 Active Vitamin D3 50 MCG (1999) 1 tab(s) ora lly once a day Active Furosemide 40 MG 1 tab(s) orally once a day; Duration: 90 days on hold 08/20/2021 Active Metoprolol Tartrate 25 MG 1/2 Orally Twi ce a day; Duration: 30 days on hold Active HYDROcodone-Acetaminophen 7.5-325 MG 1 tab(s) orally every 6 hours; Duration: 30 days 07/14/2025 Active Ferrous Sulfate 325 MG as directed Orally Active Polyethylene Glycol 3350 - as directed Active Problems Problem Type SNOMED Code ICD Code Onset Dates Problem Status W/U Status Risk Notes Problem Malignant tumor of ascending colon (522156780) Malignant neoplasm of ascending colon (C18.2) Active confirmed Problem Hypertension (67188715) HTN (hypertension) (I10) Active confirmed Problem Vitamin D deficiency (34527530) Vitamin D deficiency (E55.9) Active confirmed Problem Hyperlipidemia (26937985) Hyperlipemia, idiopathic familial (E78.5) Active confirmed Problem History of anemia (425416513) History of anemia (Z86.2) Active confirmed Problem Disorder of kidney and/or ureter (823778157) Renal mass, right (N28.89) Active confirmed Problem 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) Active confirmed Problem Osteoarthritis of left knee joint (800761129536933) Localized osteoarthritis of left knee (M17.12) Active confirmed Problem Degenerative lumbar spinal stenosis (430762351) Degenerative lumbar spinal stenosis (M48.061) Active confirmed Problem Chronic atrial fibrillation (967848769) Chronic atrial fibrillation (I48.20) Active confirmed Problem Chronic kidney disease stage 3B (disorder) (568982371) Stage 3b chronic kidney disease (CKD) (N18.32) Active confirmed Vital Signs Heart Rate 68 /min 07/20/2025 Temperature 98 degrees Fahrenheit 07/20/2025 Blood pressure diastolic 88 mm Hg 07/20/2025 Height 4 ft 8 in in 07/20/2025 Blood pressure systolic 122 mm Hg 07/20/2025 Weight 114 lbs 07/20/2025 BMI 25.56 kg/m2 07/20/2025 Encounters Encounter Location Date Provider Diagnosis [facility] [address] [place] [address] 02/18/2025 Provider Migration Postural kyphosis of lumbar region M40.05 [facility] [address] [place] [address] 08/02/2024 Hayder Besson Stage 3b chronic kidney disease (CKD) N18.32 ; HTN (hypertension) I10 and Degenerative lumbar spinal stenosis M48.061 Located within [facility] [address] [address] 11/01/2024 Hayder Besson HTN (hypertension) I 10 and Postural kyphosis of lumbar region M40.05 Located within [facility] [address] [address] 12/13/2024 Hayder Besson HTN (hypertension) I 10 and Postural kyphosis of lumbar region M40.05 Located within [facility] [address] [address] 01/24/2025 Hayder Besson HTN (hypertension) I 10 ; Hyperlipemia, idiopathic familial E78.5 ; Vitamin D deficiency E55.9 and History of anemia Z86.2 Located within [facility] [address] [address] 04/25/2025 Hayder Besson New onset atrial fibrillation I48.91 and Peripheral edema R60.0 Located within [facility] [address] [address] 05/02/2025 Hayder Besson New onset atrial fibrillation I48.91 ; Stage 3b chronic kidney disease (CKD) N18.32 ; Degenerative lumbar spinal stenosis M48.061 ; HTN (hypertension) I10 ; Localized osteoarthritis of left knee M17.12 and Routine medical exam Z00.00 Located within [facility] [address] [address] 06/13/2025 Hayder Vinnyson Edema, unspecified R60.9 and New onset atrial fibrillation I48.91 Located within [facility] [address] [address] 07/11/2025 Hayder Besson Dizziness and giddiness R42 ; Syncope and collapse R55 ; Orthostatic hypotension I95.1 and New onset atrial fibrillation I48.91 Located within [facility] [address] [address] 07/20/2025 Hayderbrissa Wheeler Malignant neoplasm o f ascending colon C18.2 ; Renal mass, right N28.89 ; Chronic atrial fibrillation I48.20 and Hospital discharge follow-up Z09 Located within [facility] [address] [address] 08/09/2024 Hayder Besson Spinal stenosis of lumbar region without neurogenic claudication M48.061 [facility] [address] [place] [address] 09/13/2024 Hayder Besson Spinal stenosis of lumbar region without neurogenic claudication M48.061 [facility] [address] [place] [address] 10/11/2024 Hayder Besson Spinal stenosis of lumbar region without neurogenic claudication M48.061 [facility] [address] [place] [address] 11/10/2024 Hayder Besson Peripheral edema R60 .9 and Spinal stenosis of lumbar region without neurogenic claudication M48.061 [facility] [address] [place] [address] 11/29/2024 Hadyer Vinnyson Stage 3b chronic kidney disease (CKD) N18.32 [facility] [address] [place] [address] 01/10/2025 Hayder Besson Postural kyphosis of lumbar region M40.05 [facility] [address] [place] [address] 01/26/2025 Haydre Besson [facility] [address] [place] [address] 02/07/2025 Hayder Besson Postural kyphosis of lumbar region M40.05 [facility] [address] [place] [address] 03/14/2025 Hayder Besson Postural kyphosis of lumbar region M40.05 [facility] [address] [place] [address] 04/11/2025 Hayder Besson Postural kyphosis of lumbar region M40.05 [facility] [address] [place] [address] 04/25/2025 Hayder Besson [facility] [address] [place] [address] 05/11/2025 Hayder Besson Postural kyphosis of lumbar region M40.05 [facility] [address] [place] [address] 06/13/2025 Hayder Besson Postural kyphosis of lumbar region M40.05 [facility] [address] [facility] [address] [place] [address] 07/14/2025 Hayder Wheeler [facility] [address] [place] [address] 07/14/2025 Hayder Wheeler Postural kyphosis of lumbar region M40.05 Assessments Encounter Date Diagnosis (ICD Code) Assessment Notes Treatment Notes Treatment Clinical Notes Section Notes 08/02/2024 HTN (hypertension) (ICD-10 - I10) Patient's blood pressure remains controlled and patient reports no side effects. Informed patient that she can take Lasix PRN if she notices swelling. Otherwise no changes at this time. 08/02/2024 Stage 3b chronic kidney disease (CKD) (ICD-10 - N18.32) Vladxiga was unaffordable for patient. Took lisinopril 2.5 which made her dizzy. Instructed patient to do 1/2 tablet. 08/09/2024 Spinal stenosis of lumbar region without neurogenic claudication (ICD-10 - M48.061) 10/11/2024 Spinal stenosis of lumbar region without neurogenic claudication (ICD-10 - M48.061) 11/10/2024 Peripheral edema (ICD-10 - R60.9) 12/13/2024 HTN (hypertension) (ICD-10 - I10) Chronic. [...] has been compliant with our office and [place] regulations r.e. meds. No concerns on my part about diversion or misuse. Labs and Tacos reports reviewed and are appropriate. 01/10/2025 Postural kyphosis of lumbar region (ICD-10 - M40.05) 02/18/2025 Postural kyphosis of lumbar region (ICD-10 [...] for edema issues. Greater than 45 minutes gvaj-cx-exky patient care with interpreting EKG, labs, reevaluation after EKG. 04/25/2025 Peripheral edema (ICD-10 - R60.0) Add spironolactone, follow-up 1 week to assess rate control, fluid status. Hospital admission considered. Patient and daughter declined, wished to trial outpatient workup. Long discussion about DOAC initiation, initiate low-dose based on her age. Has a high fall risk but no recent falls 06/13/2025 Postural kyphosis of lumbar region (ICD-10 - M40.05) 07/14/2025 Postural kyphosis of lumbar region (ICD-10 - M40.05) 07/20/2025 Malignant neoplasm of ascending colon (ICD-10 - C18.2) Patient aware of diagnosis. Talked with her and her daughter extensively. Discussed that she is seeing hematology/oncolo gy and they have recommended a CAT scan [...] to ahead and proceed with referral to [facility] and then see what her options would be at that point. 06/13/2025 Edema, unspecified (ICD-10 - R60.9) - [...] decrease metoprolol from 25mg to 12.5mg BID 02/07/2025 Postural kyphosis of lumbar region (ICD-10 - M40.05) 01/24/2025 HTN (hypertension) (ICD-10 - I10) Will stop lisinopril today given persistently low blood pressure. Encouraged to continue to check her blood pressure at home. Will check routine labs today. 11/29/2024 Stage 3b chronic kidney disease (CKD) (ICD-10 - N18.32) 11/01/2024 HTN (hypertension) (ICD-10 - I10) Will decrease carvedilol down to 6.25 twice daily. Short-term follow-up in 6 weeks to make sure we do not need to cut back further. She will continue to monitor blood pressure at home 11/01/2024 Postural kyphosis of lumbar region (ICD-10 - M40.05) Patient has been compliant with our [facility] and [place] regulations r.e. meds. No concerns on my part about diversion or misuse. Labs and Tacos reports reviewed and are appropriate. 09/13/2024 Spinal stenosis of lumbar region without neurogenic claudication (ICD-10 - M48.061) 01/24/2025 Hyperlipemia, idiopathic familial (ICD-10 - E78.5) 07/11/2025 Dizziness and giddiness (ICD-10 - R42) 07/11/2025 Syncope and collapse (ICD-10 - R55) 05/11/2025 Postural kyphosis of lumbar region (ICD-10 - M40.05) 05/02/2025 New onset atrial fibrillation (ICD-10 - [...] months and redo labs at that point 04/11/2025 Postural kyphosis of lumbar region (ICD-10 - M40.05) 05/02/2025 Degenerative lumbar spinal stenosis (ICD-10 - M48.061) Patient has been compliant with our office and [place] regulations r.e. meds. No concerns on my part about diversion or misuse. Labs and Tacos reports reviewed and are appropriate. 07/11/2025 Orthostatic hypotension (ICD-10 - I95.1) 01/24/2025 Vitamin D deficiency (ICD-10 - E55.9) 07/20/2025 Chronic atrial fibrillation (ICD-10 - I48.20) Rate controlled at this point. Off DOAC. 11/10/2024 Spinal stenosis of lumbar region without neurogenic claudication (ICD-10 - M48.061) 08/02/2024 Degenerative lumbar spinal stenosis (ICD-10 - M48.061) Patient reports her pain is controlled with the medication and is ok with continuing current plan. No medication changes at this time. 07/20/2025 Hospital discharge follow-up (ICD-10 - Z09) Personally reviewed H&P and discharge summary as available from hospital discharge documentation. Reviewed pertinent labs and test done in the hospital. Personally reconciled medication. 01/24/2025 History of anemia (ICD-10 - Z86.2) 07/11/2025 New onset atrial fibrillation (ICD-10 - I48.91) 05/02/2025 HTN (hypertension) (ICD-10 - I10) See notes above blood pressure 05/02/2025 Localized osteoarthritis of left knee (ICD-10 - M17.12) Uses walker for her combination of knee arthritis and spinal stenosis. Adequate pain control with current regimen 05/02/2025 Routine medical exam (ICD-10 - Z00.00) HRA reviewed, / word recall. Safe home environment, no recent [...] communicated findings directly with ER physician at [facility], will fax labs. Multiple complexities with patient. Plan Of Treatment Pending Test Test Name Order Date X-Lipid Profile 11/10/2007 N-CMP 05/03/2007 CT Scan : Hip, Left 09/11/2015 C-CBC 06/16/2014 C-CMP 06/16/2014 C-LIPID PANEL 06/16/2014 C-VITAMIN D, 1,25-DIHYDROXY 10/13/2011 C-VITAMIN D, 25-HYDROXY 06/16/2014 CT Scan : Hip, Right 09/11/2015 VENIPUNCT, ROUTINE* 01/27/2017 VENIPUNCT, ROUTINE* 10/13/2016 COMPREHENSIVE METABOLIC PANEL (REFL) (37 015) 02/24/2023 Next Appt Details Provider Name:Hayder Vargas Vinnyconnor, 08/10/2025 12:00:00 PM, [address], [address], Insurance Providers Payer Name Payer Address Payer Phone Subscriber Number Group Number Insured Name Patient Relationship to Insured Coverage Start Date Coverage End Date [place]IC[place] [address] [place] [place] [address] [phone] [id number] Susan Dudley Self - patient is the insured [employer] CLAIM[employer] [address] [address] [place] [address] [phone] [id number] Susan Dudley Self - patient is the insured [employer] [address] [place] [address] [phone] ACL Susan Dudley Self - patient is [...] left knee replacement Hospitalization History Reason Date(Month/Year) [facility] 08/11- Gastric ulcer with anemia requiring leung sfusions 05/2016 above surgery
[2025-07-21 07:54] LABS: Blood Urea Nitrogen 9 mg/dl (7-17); Creatinine,Serum 1.20 mg/dl (0.52-1.04); Estimated Glomerular Filt Rate 43 ml/min (>60); GFR (African American) 52 ML/MIN (>60)
--- NOTE | 2025-07-21 08:00 | CT_ITS ---
FINAL REPORT TECHNIQUE: Thin section axial images were obtained from the lung apices through the upper abdomen without contrast. This study was performed with techniques to keep radiation doses as low as reasonably achievable (ALARA). Individualized dose reduction techniques using automated exposure control or adjustment of mA and/or kV according to the patient's size were employed. CLINICAL HISTORY: evaluation of chest, recent diagnosis of colon cancer FINDINGS: There is a large, partially calcified left thyroid nodule measuring 31 mm. The heart is mildly enlarged. Small bilateral pleural effusions are identified, right greater than left. There is a small pericardial effusion. Subpleural left upper lobe nodule measures 4 mm on image 52, series 9. Left upper lobe nodule measures 5 mm on series 2, image 26. Mixed density nodular opacity in the right middle lobe measures 17 mm on series 2, image 49 with an adjacent 5 mm nodule. There are several irregular nodules in the inferior right upper lobe. Limited images of the upper abdomen reveal a mass in the upper pole of the right kidney consistent with malignancy. The gallbladder is mildly distended with gallstones. Multiple thoracic compression deformities are age-indeterminate. IMPRESSION: Bilateral pulmonary nodular opacities, could be infectious, inflammatory, or neoplastic. Small bilateral effusions with small pericardial effusion. Right renal mass consistent with malignancy. Distended gallbladder with gallstones. Age-indeterminate multiple thoracic compression deformities. Reviewed, Interpreted and Dictated by Jeannette Stratton MD Transcribed by Emma Driver Authenticated and [facility]
== END 2025-07-21 23:59 | disposition home or self-care (01) ==
LOC: RAD 07:30
PROVIDERS: PCP Internal Medicine Adolescent Medicine; Visit Provider Internal Medicine Medical Oncology
DX: N28.89 Other specified disorders of kidney and ureter (principal); J90 Pleural effusion, not elsewhere classified; I31.39 Other pericardial effusion (noninflammatory); K80.20 Calculus of gallbladder without cholecystitis without obstruction; M48.54XA Collapsed vertebra, not elsewhere classified, thoracic region, initial encounter for fracture; R91.8 Other nonspecific abnormal finding of lung field
CPT/HCPCS: 36415; 71250; 82565; 84520